=== PATIENT | female | born 1935 | race Caucasian/White ===

== ENCOUNTER 2018-04-23 07:54 | Inpatient (IN) | payer OTHER ==
--- NOTE | 2018-04-23 08:24 | EKG ---
Test Date: 2018-04-23 Test Time: 07:55:33 Electronic Gluing Machine Operator: JOMAR MEASUREMENT RESULTS: Intervals: Rate: 123 [place]: QRSD: 78 QT: 330 QTc: 472 [place]: P: AK: QRS: -48 T: 159 INTERPRETIVE STATEMENTS: Atrial fibrillation with rapid ventricular response Left axis deviation ST & T wave abnormality, consider lateral ischemia or digitalis effect Abnormal ECG Compared to ECG 05/13/2017 10:20:04 Left-axis deviation now present Sinus rhythm no longer present Short AK interval no longer present Left anterior fascicular block no longer present Myocardial infarct finding no longer present ST (T wave) deviation still present Possible ischemia still present Electronically Signed On 04-23-18 08:24:24 CDT by Arnold Dickson
[2018-04-23 08:31] LABS: Protime INR 0.99
[2018-04-23 08:32] LABS: Absolute Lymphocytes (CBC) 1.8 K/uL (0.7-4.9); Absolute Monocytes 0.7 K/uL (0.1-1.3); Absolute Neutrophil 3.7 K/uL (1.8-8.0); Basophils % 0.8 % (0-1.3); Eosinophils % 1.2 % (0-4.4); Hematocrit 41.2 % (36.0-45.0); Lymphocytes % 28.8 % (15.3-44.8); MCH 31.3 pg (27.0-35.0); MCV 90.6 fL (80-100); MPV 8.3 fL (7.6-11.3); Monocytes % 10.4 % (3.3-12.3); RBC Red Blood Cell Count 4.55 M/uL (3.86-4.86)
[2018-04-23 08:47] LABS: ALT/SGPT 19 U/L (12-78); AST/SGOT 18 U/L (15-37); Albumin 3.8 g/dL (3.4-5.0); Alkaline Phosphatase 77 U/L (45-117); BUN Blood Urea Nitrogen 11 mg/dL (7-18); Bicarbonate 26 mmol/L (21-32); Bilirubin Direct 0.2 mg/dL (0-0.2); Bilirubin Total 0.6 mg/dL (0.2-1.0); Glucose Level 113 mg/dL (74-106); Magnesium 2.4 mg/dL (1.8-2.4); NT PRO-BNP 2192 pg/mL (<450); Potassium 3.8 mmol/L (3.5-5.1); Protein, Total 7.5 g/dL (6.4-8.2); Sodium Level 139 mmol/L (136-145); Troponin (Emerg Dept Use Only) < 0.02 ng/mL (0.0-0.045)
[2018-04-23] MEDS ORDERED: ASPIRIN 81 MG CHEWABLE TABLET ONE (08:52)
[2018-04-23] MEDS ORDERED: ENOXAPARIN 80 MG/0.8 ML SQ ONE (08:53)
[2018-04-23] MEDS ORDERED: METOPROLOL TARTRATE 5 MG/5 ML INJ IV ONE (08:53)
--- NOTE | 2018-04-23 08:55 | RAD REPORT ---
EXAM DESCRIPTION: Rafal Single View04/23/2018 8:41 am CLINICAL HISTORY: Palpitations COMPARISON: 05/2017 FINDINGS: The lungs appear clear of acute infiltrate. The heart is normal size. IMPRESSION: No acute abnormalities displayed
--- NOTE | 2018-04-23 08:58 | ER ---
Nurse's Notes [facility] Name: Kimberly Simons Age: 83 yrs Sex: Female : 1935 Arrival Date: 04/23/2018 Time: 07:55 Bed 5 Private MD: Diagnosis: A-fib - RVR - New onset Presentation: 04/23 07:49 Presenting complaint: EMS states: woke up this morning around 0420 c/o heart racing, sv denies CP. Pt has been having intermittent chest tightness and SOB for the last couple of weeks. Pt recently had her BP meds changed last week. BP 116/79 HR-103 RR-19 97%. Transition of care: patient was not received from another setting of care. Onset of symptoms was April 23, 2018. Risk Assessment: Do you want to hurt yourself or someone else? Patient reports no desire to harm self or others. Initial Sepsis Screen: Does the patient meet any 2 criteria? No. Patient's initial sepsis screen is negative. Does the patient have a suspected source of infection? No. Patient's initial sepsis screen is negative. Care prior to arrival: Medication(s) given: Normal saline infusion, IV initiated. 18 GA, in the left antecubital area, Glucose check: 136. 07:49 Method Of Arrival: EMS: [facility] sv 07:49 Acuity: RUFUS 3 sv Triage Assessment: 07:49 General: Appears in no apparent distress. comfortable, slender, Behavior is calm, sv cooperative, appropriate for age. Pain: Denies pain. EENT: No signs and/or symptoms were reported regarding the EENT system. Neuro: Level of Consciousness is awake, alert, obeys commands, Oriented to person, place, time, situation, Moves all extremities. Full function Gait is steady, Speech is normal. Cardiovascular: Heart tones S1 S2 present Patient's skin is warm and dry. Pulses are palpable in right radial artery and left radial artery Rhythm is atrial fibrillation Chest pain is denied. Respiratory: Airway is patent Respiratory effort is even, unlabored, Respiratory pattern is regular, symmetrical, Denies shortness of breath labored breathing. GI: No signs and/or symptoms were reported involving the gastrointestinal system. : No signs and/or symptoms were reported regarding the genitourinary system. Derm: Skin is normal. Historical: - Allergies: 08:02 MARLENA INHIBITORS; sv 08:02 Benadryl; sv 08:02 bio freeze; sv 08:02 Iodine; sv 08:02 PENICILLINS; sv 08:02 Prednisone; sv 08:02 Streptomycin; sv - Home Meds: 08:02 carvedilol 12.5 mg oral tab [Active]; Protonix Oral [Active]; losartan oral oral sv [Active]; Synthroid 100 mcg Oral tab 1 tab once daily [Active]; 12:03 amlodipine oral [Active]; sv - PMHx: 08:02 Hypertension; GERD; sv - Immunization history:: Adult Immunizations up to date. - Ebola Screening: : No symptoms or risks identified at this time. - Social history:: Smoking status: Patient/guardian denies using tobacco. Screenin:00 Abuse screen: Denies threats or abuse. Denies injuries from another. Nutritional sv screening: No deficits noted. Tuberculosis screening: No symptoms or risk factors identified. Fall Risk None identified. Assessment: 08:28 Reassessment: Pt assisted up to the BSC with standby assist. sv 08:30 Reassessment: Patient appears in no apparent distress at this time. No changes from sv previously documented assessment. See triage assessment. 09:06 Reassessment: Patient appears in no apparent distress at this time. No changes from sg previously documented assessment. Patient states feeling better. 10:10 Reassessment: Dr Dickson at bedside. sv 10:28 Reassessment: Patient appears in no apparent distress at this time. No changes from sv previously documented assessment. Patient and/or family updated on plan of care and expected duration. Pain level reassessed. Patient is alert, oriented x 3, equal unlabored respirations, skin warm/dry/pink. Echo at bedside. 12:00 Reassessment: Patient appears in no apparent distress at this time. No changes from sv previously documented assessment. Patient and/or family updated on plan of care and expected duration. Pain level reassessed. Patient is alert, oriented x 3, equal unlabored respirations, skin warm/dry/pink. Vital Signs: 08:00 BP 123 / 94; Pulse 118 MON; Resp 19; Pulse Ox 100% on R/A; Pain 0/10; sv 08:59 Weight 62 kg (R); sg 09:01 BP 128 / 74; Pulse 109; Resp 17; Pulse Ox 100% on R/A; Pain 0/10; sg 09:06 BP 124 / 68; Pulse 67 MON; Resp 17; Pulse Ox 100% on R/A; sg 09:40 BP 141 / 76; Pulse 70 MON; Resp 20; Pulse Ox 99% ; sv 10:18 BP 117 / 68; Pulse 71 MON; Resp 20; Pulse Ox 100% on R/A; sv 11:30 BP 127 / 74; Pulse 75 MON; Resp 18; Temp 98.7; Pulse Ox 100% on R/A; sv 08:00 A fib sv 09:40 Sinus Rhythm sv 10:18 Sinus Rhythm sv 11:30 Sinus Rhythm sv 09:06 notified of rhythm change, EKG at bedside sg ED Course: 07:49 Maintain EMS IV. Dressing intact. Good blood return noted. Site clean \T\ dry. Gauge \T\ sv site: 18G L AC. 07:50 monitor tech on. Pulse ox on. NIBP on. Door closed. Warm blanket given. Head of bed sv elevated. 07:55 Patient arrived in ED. hb 07:55 Initial lab(s) drawn, by ED staff, sent to lab. sv 07:56 Maddie Rosales, RN is Primary Nurse. sv 07:56 Lisandro Boone MD is Attending Physician. kdr 07:59 Triage completed. sv 08:00 Patient has correct armband on for positive identification. Placed in gown. Bed in low sv position. Call light in reach. Adult w/ patient. 08:00 Arm band placed on. sv 08:16 EKG done, by electrocardiographic technician. reviewed by Lisandro Boone MD. at1 08:27 X-ray(s) taken. sv 08:31 Awaiting lab results, Awaiting radiology results. sv 08:34 X-ray completed. Portable x-ray completed in exam room. Patient tolerated procedure jb2 well. 08:37 XRAY Chest (1 view) In Process Unspecified. EDMS 08:57 Trudy Haynes MD is Hospitalizing Provider. kdr 09:15 EKG done, by electrocardiographic technician. reviewed by Lisandro Boone MD Repeat EKG. at1 09:41 Awaiting bed assignment. sv 11:00 Awaiting bed assignment. sv 12:03 No provider procedures requiring assistance completed. Patient admitted, IV remains in sv place. intact. 12:07 Diet: Patient given a heart healthy meal tray. Tolerated well no assistance requiredc. hb Administered Medications: 08:55 Drug: Lopressor 2.5 mg Route: IVP; Site: left antecubital; sg 09:15 Follow up: Response: No adverse reaction sv 08:59 Drug: Aspirin 81 mg Route: PO; sg 09:56 Follow up: Response: No adverse reaction sv 09:00 Drug: Lovenox 1 mg/kg Route: Sub-Q; Site: right lower abdomen; sg 09:56 Follow up: Response: No adverse reaction sv Output: 08:29 Urine: 300ml (Voided); Total: 300ml. sv Outcome: 08:58 Decision to Hospitalize by Provider. kdr 12:04 Admitted to Tele accompanied by tech, via stretcher, room 421, with chart, Report sv called to Gretchen BURNHAM 12:04 Condition: stable 12:04 Instructed on the need for admit. 12:30 Patient left the ED. sv Signatures: Dispatcher [employer] Maddie Duval, RN RN sv Clemente Oliveira RN RN Lisandro Boone MD MD [facility] Alexei Zuniga jb2 Carrie Hernandez, zoning administrator EKG Tat1 Patricia Pantoja RN RN hb
--- NOTE | 2018-04-23 08:59 | EDPHYS ---
Physician Documentation [facility] Name: Kimberly Simons Age: 83 yrs Sex: Female : 1935 Arrival Date: 04/23/2018 Time: 07:55 Bed 5 Private MD: ED Physician Lisandro Boone HPI: 04/23 16:18 This 83 yrs old Female presents to ER via EMS with complaints of Palpitations.kdr 16:18 The patient presents with a history of irregular heart beat, heart racing. Context: The kdr symptoms occur at rest. Duration: The patient or guardian reports a single episode, that is still ongoing, and unchanged. Modifying factors: The symptoms are aggravated by nothing. The symptoms are alleviated by. 16:46 Associated signs and symptoms: Pertinent positives: lightheadedness, Pertinent kdr negatives:. Severity of symptoms: At their worst the symptoms were mild moderate just prior to arrival, in the emergency department the symptoms are unchanged. The patient has not experienced similar symptoms in the past. The patient has not recently seen a physician. Historical: - Allergies: 08:02 MARLENA INHIBITORS; sv 08:02 Benadryl; sv 08:02 bio freeze; sv 08:02 Iodine; sv 08:02 PENICILLINS; sv 08:02 Prednisone; sv 08:02 Streptomycin; sv - Home Meds: 08:02 carvedilol 12.5 mg oral tab [Active]; Protonix Oral [Active]; losartan oral oral sv [Active]; Synthroid 100 mcg Oral tab 1 tab once daily [Active]; 12:03 amlodipine oral [Active]; sv - PMHx: 08:02 Hypertension; GERD; sv - Immunization history:: Adult Immunizations up to date. - Ebola Screening: : No symptoms or risks identified at this time. - Social history:: Smoking status: Patient/guardian denies using tobacco. ROS: 16:46 Constitutional: Negative for fever, chills, and weight loss, Eyes: Negative for injury, kdr pain, redness, and discharge, ENT: Negative for injury, pain, and discharge, Neck: Negative for injury, pain, and swelling, Respiratory: Negative for shortness of breath, cough, wheezing, and pleuritic chest pain, Abdomen/GI: Negative for abdominal pain, nausea, vomiting, diarrhea, and constipation, Back: Negative for injury and pain, : Negative for injury, bleeding, discharge, and swelling, MS/Extremity: Negative for injury and deformity, Skin: Negative for injury, rash, and discoloration, Neuro: Negative for headache, weakness, numbness, tingling, and seizure activity. Psych: Negative for depression, anxiety, suicide ideation, homicidal ideation, and hallucinations, Allergy/Immunology: Negative for hives, rash, and allergies, Endocrine: Negative for neck swelling, polydipsia, polyuria, polyphagia, and marked weight changes, Hematologic/Lymphatic: Negative for swollen nodes, abnormal bleeding, and unusual bruising. 16:46 Cardiovascular: Positive for palpitations, Negative for chest pain, edema, orthopnea. Exam: 16:46 Constitutional: This is a well developed, well nourished patient who is awake, alert, kdr and in no acute distress. Head/Face: Normocephalic, atraumatic. Eyes: Pupils equal round and reactive to light, extra-ocular motions intact. Lids and lashes normal. Conjunctiva and sclera are non-icteric and not injected. Cornea within normal limits. Periorbital areas with no swelling, redness, or edema. Neck: Trachea midline, no thyromegaly or masses palpated, and no cervical lymphadenopathy. Supple, full range of motion without nuchal rigidity, or vertebral point tenderness. No Meningismus. Chest/axilla: Normal chest wall appearance and motion. Nontender with no deformity. No lesions are appreciated. Respiratory: Lungs have equal breath sounds bilaterally, clear to auscultation and percussion. No rales, rhonchi or wheezes noted. No increased work of breathing, no retractions or nasal flaring. Abdomen/GI: Soft, non-tender, with normal bowel sounds. No distension or tympany. No guarding or rebound. No evidence of tenderness throughout. Back: No spinal tenderness. No costovertebral tenderness. Full range of motion. Skin: Warm, dry with normal turgor. Normal color with no rashes, no lesions, and no evidence of cellulitis. MS/ Extremity: Pulses equal, no cyanosis. Neurovascular intact. Full, normal range of motion. Neuro: Awake and alert, GCS 15, oriented to person, place, time, and situation. Cranial nerves II-XII grossly intact. Motor strength 5/5 in all extremities. Sensory grossly intact. Cerebellar exam normal. Normal gait. Psych: Awake, alert, with orientation to person, place and time. Behavior, mood, and affect are within normal limits. 16:46 Cardiovascular: Rate: tachycardic, Rhythm: irregularly irregular, Pulses: no pulse deficits are appreciated, Heart sounds: normal, Edema: is not appreciated. Vital Signs: 08:00 BP 123 / 94; Pulse 118 MON; Resp 19; Pulse Ox 100% on R/A; Pain 0/10; sv 08:59 Weight 62 kg (R); sg 09:01 BP 128 / 74; Pulse 109; Resp 17; Pulse Ox 100% on R/A; Pain 0/10; sg 09:06 BP 124 / 68; Pulse 67 MON; Resp 17; Pulse Ox 100% on R/A; sg 09:40 BP 141 / 76; Pulse 70 MON; Resp 20; Pulse Ox 99% ; sv 10:18 BP 117 / 68; Pulse 71 MON; Resp 20; Pulse Ox 100% on R/A; sv 11:30 BP 127 / 74; Pulse 75 MON; Resp 18; Temp 98.7; Pulse Ox 100% on R/A; sv 08:00 A fib sv 09:40 Sinus Rhythm sv 10:18 Sinus Rhythm sv 11:30 Sinus Rhythm sv 09:06 notified of rhythm change, EKG at bedside sg MDM: 08:58 Patient medically screened. kdr 16:46 Data reviewed: vital signs, nurses notes, lab test result(s), EKG, radiologic studies. kdr Counseling: I had a detailed discussion with the patient and/or guardian regarding: the historical points, exam findings, and any diagnostic results supporting the discharge/admit diagnosis, lab results, radiology results, the need for further work-up and treatment in the hospital. 04/23 08:07 Order name: Basic Metabolic Panel; Complete Time: :04/23 08:07 Order name: CBC with Diff; Complete Time: :04/23 08:07 Order name: LFT's; Complete Time: :04/23 08:07 Order name: Magnesium; Complete Time: :04/23 08:07 Order name: NT PRO-BNP; Complete Time: :04/23 08:07 Order name: PT-INR; Complete Time: :04/23 08:07 Order name: Troponin (emerg Dept Use Only); Complete Time: 08:51 sv 04/23 08:07 Order name: XRAY Chest (1 view) sv 04/23 08:07 Order name: EKG; Complete Time: 08:08 sv 04/23 08:59 Order name: Echo with Doppler EDMS 04/23 09:05 Order name: EKG; Complete Time: 09:06 sg 04/23 08:07 Order name: Cardiac monitoring; Complete Time: 09:57 sv 04/23 08:07 Order name: EKG - Nurse/Tech; Complete Time: 09:57 sv 04/23 08:07 Order name: IV Saline Lock; Complete Time: 09:57 sv 04/23 08:07 Order name: Labs collected and sent; Complete Time: 09:57 sv 04/23 08:07 Order name: O2 Per Protocol; Complete Time: 09:57 sv 04/23 08:07 Order name: O2 Sat Monitoring; Complete Time: 09:57 sv 04/23 11:34 Order name: Diet Heart Healthy; Complete Time: 11:34 bd Administered Medications: 08:55 Drug: Lopressor 2.5 mg Route: IVP; Site: left antecubital; sg 09:15 Follow up: Response: No adverse reaction sv 08:59 Drug: Aspirin 81 mg Route: PO; sg 09:56 Follow up: Response: No adverse reaction sv 09:00 Drug: Lovenox 1 mg/kg Route: Sub-Q; Site: right lower abdomen; sg 09:56 Follow up: Response: No adverse reaction sv Disposition: 04/23/18 08:58 Hospitalization ordered by Trudy Haynes for Observation. Preliminary diagnosis is A-fib - RVR - New onset. - Bed requested for Telemetry/MedSurg (observation). - Status is Observation. sv - Condition is Fair. - Problem is new. - Symptoms are unchanged. UTI on Admission? No Signatures: Dispatcher [employer] EDHI Jessy Montero Stephanie RN Clemente Albarran RN RN Lisandro Lopez MD MD kdr Corrections: (The following items were deleted from the chart) 11:46 08:58 Hospitalization Ordered by Trudy Haynes MD for Observation. Preliminary bd diagnosis is A-fib - RVR - New onset. Bed requested for Telemetry/MedSurg (observation). Status is Observation. Condition is Fair. Problem is new. Symptoms are unchanged. UTI on Admission? No. kdr 12:30 11:46 04/23/2018 08:58 Hospitalization Ordered by Trudy Haynes MD for Observation. sv Preliminary diagnosis is A-fib - RVR - New onset. Bed requested for Telemetry/MedSurg (observation). Status is Observation. Condition is Fair. Problem is new. Symptoms are unchanged. UTI on Admission? No. bd
[2018-04-23] MEDS ORDERED: ASPIRIN EC 81 MG TAB PO SCH (09:00)
--- NOTE | 2018-04-23 10:26 | EKG ---
Test Date: 2018-04-23 Test Time: 09:09:01 Mixer Whipped Topping: DEANN MEASUREMENT RESULTS: Intervals: Rate: 69 CT: 170 QRSD: 80 QT: 410 QTc: 439 [place]: P: 22 CT: 170 QRS: -51 T: 0 INTERPRETIVE STATEMENTS: Normal sinus rhythm Left axis deviation Anterior infarct, age undetermined Abnormal ECG Compared to ECG 04/23/2018 07:55:33 Myocardial infarct finding now present Atrial fibrillation no longer present ST (T wave) deviation no longer present Possible ischemia no longer present Electronically Signed On 04-23-18 10:25:54 CDT by Arnold Dickson
--- NOTE | 2018-04-23 12:40 | ECHO ---
HEIGHT: ft in WEIGHT: lb oz DATE OF STUDY: 04/23/[address]: Trudy Haynes MD 2-DIMENSIONAL: YES M.MODE: YES DOPPLER: YES COLOR FLOW: YES TDS: NO PORTABLE: NO DEFINITY: NO BUBBLE STUDY: NO DIAGNOSIS: ATRIAL FIBRILLATION, RAPID VENTRICULAR RESPONSE CARDIAC HISTORY: CATHERIZATION: NO SURGERY: NO PROSTHETIC VALVE: NO PACEMAKER: NO MEASUREMENTS (cm) DIASTOLIC (NORMALS) SYSTOLIC (NORMALS) IVSd 1.0 (0.6-1.2) LA Diam 3.6 (1.9-4.0) LVEF 76% LVIDd 4.9 (3.5-5.7) LVIDs 2.7 (2.0-3.5) %FS 45% LVPWd 1.1 (0.6-1.2) Ao Diam 3.3 (2.0-3.7) 2 DIMENSIONAL ASSESSMENT: RIGHT ATRIUM: NORMAL LEFT ATRIUM: NORMAL RIGHT VENTRICLE: NORMAL LEFT VENTRICLE: NORMAL TRICUSPID VALVE: NORMAL MITRAL VALVE: NORMAL PULMONIC VALVE: NORMAL AORTIC VALVE: NORMAL PERICARDIAL EFFUSION: NONE AORTIC ROOT: NORMAL LEFT VENTRICULAR WALL MOTION: NORMAL DOPPLER/COLOR FLOW: MILD AORTIC, MITRAL AND TRICUSPID REGURGITATION. NORMAL RIGHT VENTRICULAR SYSTOIC PRESSURE. COMMENTS: NORMAL 2D ECHOCARDIOGRAM. MILD AORTIC, MITRAL AND TRICUSPID REGURGITATION. NORMAL SINUS RHYTHM. TECHNOLOGIST: Jose GUERRA
[2018-04-23] MEDS ORDERED: ONDANSETRON 4 MG/2 ML VIAL IV PRN (12:54)
[2018-04-23] MEDS ORDERED: ENOXAPARIN 40 MG/0.4 ML SQ SCH (12:54)
[2018-04-23] MEDS ORDERED: ACETAMINOPHEN 500 MG TAB PO PRN (12:54)
--- NOTE | 2018-04-23 13:12 | P.HP ---
Certification for Inpatient Patient admitted to: Observation With expected LOS: <2 Midnights Patient will require the following post-hospital care: None Practitioner: I am a practitioner with admitting privileges, knowledge of patient current condition, hospital course, and medical plan of care. Services: Services provided to patient in accordance with Admission requirements found in Title 42 Section 412.3 of the Code of Federal Regulations Patient History Date of Service: 04/23/18 Primary Care Provider: Dr Benavides - cardio Reason for admission: Afib History of Present Illness: This is a 83-year-old female with significant past medical history of hypertension who presented to the ED complaining of having irregular heart rate. Patient stated that she noticed some palpitations since yesterday and decided to come to the ER for further workup. Patient stated that about a month ago she was started on new blood pressure medication as her blood pressure has been elevated recently. She has been having elevated blood pressure even after the medication was started and called her cardiology office about 1 week ago. Patient at that time was advised to double up on her blood pressure medication that she has been taking. Patient takes beta-homero 12.5 which was increased to 25 mg. Patient stated that after the increased she started noticing having irregular heart rate and palpitations and thus decided to come to the ER for further workup. No other associated symptoms at this time. Denies having any shortness of breath chest pain nausea vomiting headaches abdominal pain or any other symptoms. Patient overall is not healthy state other than having the palpitations that she noticed. Denies any tobacco or alcohol use at this time. Allergies MARLENA Inhibitors Allergy (Verified 05/10/17 21:34) Anaphylaxis Penicillins Allergy (Verified 05/10/17 21:34) Hives camphor [From Biofreeze] Adverse Reaction (Verified 05/10/17 21:34) Hives diphenhydramine [From Benadryl] Adverse Reaction (Verified 05/10/17 21:34) Nausea/Vomiting iodine Adverse Reaction (Verified 05/10/17 21:34) Hives menthol [From Biofreeze] Adverse Reaction (Verified 05/10/17 21:34) Hives prednisone Adverse Reaction (Verified 05/10/17 21:34) Hives streptomycin Adverse Reaction (Verified 05/10/17 21:34) Rash Home Medications: Amlodipine/Valsartan [Amlodipine-Valsartan 10-320 mg] 1 tab PO DAILY 05/10/17 Multivitamin [Daily Multivitamin] 1 tab PO DAILY 05/10/17 Atorvastatin Calcium [Lipitor*] 20 mg PO BEDTIME 05/13/17 Carvedilol [Coreg] 12.5 mg PO BID #60 tab 05/14/17 Levothyroxine Sodium [Levoxyl] 100 mcg PO DAILY #30 tablet 05/14/17 Pantoprazole [Protonix Tab*] 40 mg PO DAILYAC #30 tab 05/14/17 - Past Medical/Surgical History Diabetic: No -: Hypothyroidism -: HTN -: Venous insufficiency -: Hysterectomy -: Vein stripping Psychosocial/ Personal History: The patient is a . She has 4 children. She does not work. - Family History Mother -: Heart disease, Cancer Father -: Stroke Brother -: Heart disease Sister -: Heart disease - Social History Alcohol use: No CD- Drugs: No Caffeine use: Yes Review of Systems 10-point ROS is otherwise unremarkable Physical Examination - Vital Signs Temperature: 98.7 F Blood Pressure: 127/74 Pulse: 75 Respirations: 18 - Physical Exam General: Alert, In no apparent distress HEENT: Atraumatic, PERRLA, Mucous membr. moist/pink, EOMI, Sclerae nonicteric Neck: Supple, 2+ carotid pulse no bruit, No LAD, Without JVD or thyroid abnormality Respiratory: Clear to auscultation bilaterally, Normal air movement Cardiovascular: Normal S1 S2, Irregular heart rate/rhythm Gastrointestinal: Normal bowel sounds, No tenderness Musculoskeletal: No tenderness Integumentary: No rashes Neurological: Normal gait, Normal speech, Normal strength at 5/5 x4 extr, Normal tone, Normal affect Lymphatics: No axilla or inguinal lymphadenopathy - Studies Laboratory Data (last 24 hrs) 04/23/18 08:00: PT 11.7, INR 0.99 04/23/18 08:00: WBC 6.3, Hgb 14.2, Hct 41.2, Plt Count 291 04/23/18 08:00: Sodium 139, Potassium 3.8, BUN 11, Creatinine 0.90, Glucose 113 H, Magnesium 2.4, Total Bilirubin 0.6, AST 18, ALT 19, Alkaline Phosphatase 77 Assessment and Plan - Problems (Diagnosis) (1) Afib Current Visit: Yes Status: Acute Plan: New onset atrial fibrillation with RVR -patient on beta-homero at this time. However will stop that and consider starting patient on Betapace -will get cardiology consulted. -echocardiogram ordered as well -CHADsVasc>2 at this time -Considering Xarelto for anticoagulation Qualifiers: Atrial fibrillation type: persistent Qualified Code(s): I48.1 - Persistent atrial fibrillation (2) Hypertension Onset Date: 05/14/17 Current Visit: No Status: Chronic Plan: Blood pressure elevated in the ER -will restart home medication except beta-homero. -will monitor closely here in the hospital Qualifiers: Hypertension type: essential hypertension (3) Hypothyroidism Onset Date: 05/14/17 Current Visit: No Status: Chronic Plan: Will get TSH -restart hypothyroid medication here in the hospital Qualifiers: Hypothyroidism type: acquired Qualified Code(s): E03.9 - Hypothyroidism, unspecified - Plan The patient will be admitted to medical surgical floor for further treatment of her atrial fibrillation with RVR. Cardiology consultation has been ordered. Echocardiogram has been ordered as well. Discharge Plan: Home Plan to discharge in: 48 Hours - Advance Directives Does patient have a Living Will: Yes Does patient have a Durable POA for Healthcare: Yes - Code Status/Comfort Care Code Status Assessed: Yes Critical Care: No
[2018-04-23 13:19] VITALS: BMI 21.4
--- NOTE | 2018-04-23 14:24 | CON ---
CARDIOLOGY CONSULT Reason For Consultation: AFib. History Of Present Illness: Ms. Simons is known to have hypertension for many years. She does not sm eric or have any vascular disease. Does not have diabetes or dyslipidemia. About a year ago, she had an extensive noninvasive workup and everything was normal. She has been feeling her heart flip-flop on and off for a couple days, came in and had AFib with heart rate about 130 to 140. When she settl ed down, the heart rate fell, then she reverted to sinus rhythm without the administration of any med ications and she is in the sinus rhythm at the time of the exam. She thinks she may have had flip-fl ops and spells that she ignored even since she was a teenager, but more recently spells like this hav e just been fairly recent. Physical Examination: General: She appears to be her stated age. Alert, oriented, pleasant, not in distress. Lungs: Clear. Heart: Regular rate and rhythm. No significant murmur. No carotid bruit. Extremities: No edema, cyanosis, or clubbing. Distal pulses palpable. Impression: The patient has paroxysmal atrial fibrillation. I think, we should initiate therapy wit h Xarelto and Betapace and see if we can reduce her risk of stroke and keep her in normal rhythm most of the time. She has been on carvedilol, so we will stop that and she could continue with the losartan. She reports drug intolerance to x-ray contrast material, penicillin and MARLENA inhibitors. SUZAN/FAITH Voice ID: [id number] Report ID: [id number]
[2018-04-23] MEDS: RIVAROXABAN 20 MG TABLET PO SCH (16:49)
[2018-04-23] MEDS ORDERED: METOPROLOL TAR 25 MG TAB PO SCH (18:00)
[2018-04-23] MEDS ORDERED: POTASSIUM 25 MEQ EFFERV TAB PO ONE (18:00)
[2018-04-23] MEDS: SOTALOL HCL 80 MG TAB PO SCH (18:37)
[2018-04-24 05:05] LABS: Absolute Lymphocytes (CBC) 2.6 K/uL (0.7-4.9); Absolute Monocytes 0.9 K/uL (0.1-1.3); Absolute Neutrophil 2.9 K/uL (1.8-8.0); Basophils % 0.7 % (0-1.3); Eosinophils % 2.3 % (0-4.4); Lymphocytes % 39.7 % (15.3-44.8); MCH 31.2 pg (27.0-35.0); MCV 91.8 fL (80-100); MPV 8.3 fL (7.6-11.3); Monocytes % 13.3 % (3.3-12.3); RBC Red Blood Cell Count 4.14 M/uL (3.86-4.86)
[2018-04-24 05:16] LABS: Albumin 3.3 g/dL (3.4-5.0); Bilirubin Total 0.5 mg/dL (0.2-1.0); Phosphorus 3.9 mg/dL (2.5-4.9); Potassium 4.2 mmol/L (3.5-5.1); Protein, Total 6.4 g/dL (6.4-8.2)
[2018-04-24 05:28] LABS: Urine Appearance CLEAR; Urine Bilirubin NEGATIVE (NEG); Urine Blood NEGATIVE (NEG); Urine Color YELLOW; Urine Glucose NEGATIVE (NEG); Urine Protein NEGATIVE (NEG); Urine Specific Gravity 1.015 (1.005-1.030); Urine Urobilinogen 0.2 mg/dL (0.2-1.0); Urine pH 6.5 (5.0-7.0)
[2018-04-24 05:34] LABS: Urine Microscopic Reflex NO UMIC
[2018-04-24] MEDS: SOTALOL HCL 80 MG TAB PO SCH ×2 (06:24→17:18)
--- NOTE | 2018-04-24 13:21 | P.PN ---
Subjective Date of Service: 04/24/18 Primary Care Provider: Dr Benavides - cardio Chief Complaint: Afib Patient seen and examined at bedside with RN. Melvin. Case discussed with cardiology. Plans to offer overnight. Has been doing well. In Sinus rhythm. Review of Systems 10-point ROS is otherwise unremarkable Physical Examination - Vital Signs Temperature: 99.3 F Blood Pressure: 141/64 Pulse: 68 Respirations: 18 Pulse Ox (%): 98 - Physical Exam General: Alert, In no apparent distress HEENT: Atraumatic, PERRLA, EOMI Neck: Supple, JVD not distended Respiratory: Clear to auscultation bilaterally, Normal air movement Cardiovascular: Regular rate/rhythm, Normal S1 S2 Gastrointestinal: Normal bowel sounds, No tenderness Musculoskeletal: No tenderness Integumentary: No rashes Neurological: Normal speech, Normal tone, Normal affect Lymphatics: No axilla or inguinal lymphadenopathy - Studies Laboratory Data (last 24 hrs) 04/24/18 04:07: Sodium 139, Potassium 4.2, BUN 16, Creatinine 1.00, Glucose 91, Phosphorus 3.9, Total Bilirubin 0.5, AST 17, ALT 16, Alkaline Phosphatase 63 04/24/18 04:07: WBC 6.5, Hgb 12.9, Hct 38.0, Plt Count 288 Medications List Reviewed: Yes Assessment And Plan - Current Problems (Diagnosis) (1) Afib Onset Date: 04/24/18 Current Visit: Yes Status: Acute Plan: New onset atrial fibrillation with RVR -On betapace and xarelto now. Stop Coreg -echocardiogram WNL -CHADsVasc>2 at this time -Cardiology consulted. Appreciate unm hospital Qualifiers: Atrial fibrillation type: persistent Qualified Code(s): I48.1 - Persistent atrial fibrillation (2) Hypertension Onset Date: 05/14/17 Current Visit: No Status: Chronic Plan: Blood pressure elevated in the ER -restart Losartan -will monitor closely here in the hospital Qualifiers: Hypertension type: essential hypertension (3) Hypothyroidism Onset Date: 05/14/17 Current Visit: No Status: Chronic Plan: Will get TSH -restart hypothyroid medication here in the hospital Qualifiers: Hypothyroidism type: acquired Qualified Code(s): E03.9 - Hypothyroidism, unspecified - Plan Pending clinical improvement. Will monitor patient 24-48 hr after receiving 4 doses Betapace Discharge Plan: Home Plan to discharge in: 48 Hours - Code Status/Comfort Care Code Status Assessed: Yes Critical Care: No
[2018-04-24] MEDS: PANTOPRAZOLE 40MG TABLET PO SCH (15:34)
[2018-04-24] MEDS: AMLODIPINE 10 MG TAB PO SCH (15:34)
[2018-04-24] MEDS: MULTIVIT W/ MINERAL TAB PO SCH (15:34)
[2018-04-24] MEDS: LOSARTAN POTASSIUM 50 MG TABLET PO SCH (15:34)
[2018-04-24] MEDS: FOLBIC 1 TAB PO SCH (16:00)
[2018-04-24] MEDS: RIVAROXABAN 20 MG TABLET PO SCH (17:18)
[2018-04-25] MEDS: SOTALOL HCL 80 MG TAB PO SCH ×2 (06:27→17:18)
[2018-04-25] MEDS: LEVOTHYROXINE SOD 0.1 MG TAB PO SCH (06:27)
[2018-04-25 06:40] LABS: Absolute Lymphocytes (CBC) 1.6 K/uL (0.7-4.9); Absolute Monocytes 0.7 K/uL (0.1-1.3); Absolute Neutrophil 3.3 K/uL (1.8-8.0); Basophils % 0.7 % (0-1.3); Eosinophils % 1.8 % (0-4.4); Hematocrit 39.5 % (36.0-45.0); Lymphocytes % 27.8 % (15.3-44.8); MCH 30.9 pg (27.0-35.0); MPV 7.8 fL (7.6-11.3); Monocytes % 12.1 % (3.3-12.3); RBC Red Blood Cell Count 4.29 M/uL (3.86-4.86)
[2018-04-25 06:58] LABS: Albumin 3.4 g/dL (3.4-5.0); Bilirubin Total 0.6 mg/dL (0.2-1.0); Potassium 4.2 mmol/L (3.5-5.1); Protein, Total 6.7 g/dL (6.4-8.2)
[2018-04-25] MEDS: MULTIVIT W/ MINERAL TAB PO SCH (08:36)
[2018-04-25] MEDS: PANTOPRAZOLE 40MG TABLET PO SCH (08:36)
[2018-04-25] MEDS: AMLODIPINE 10 MG TAB PO SCH (08:37)
[2018-04-25] MEDS: LOSARTAN POTASSIUM 50 MG TABLET PO SCH (08:37)
[2018-04-25] MEDS: FOLBIC 1 TAB PO SCH (08:40)
[2018-04-25] MEDS ORDERED: HOME MED 1 EA UNK (Losartan Potassium [Losartan Potassium] 100 MG) PO SCH (09:00)
[2018-04-25] MEDS ORDERED: FOLIC ACID PO SCH (09:00)
[2018-04-25] MEDS ORDERED: B6 PO SCH (09:00)
[2018-04-25] MEDS ORDERED: VIT E ACETATE PO SCH (09:00)
[2018-04-25] MEDS ORDERED: UBIDECARENONE PO SCH (09:00)
[2018-04-25] MEDS ORDERED: VIT B12 PO SCH (09:00)
[2018-04-25] MEDS ORDERED: LMEFOLATE CA PO SCH (09:00)
[2018-04-25] MEDS ORDERED: B12 PO SCH (09:00)
[2018-04-25] MEDS ORDERED: B2 PO SCH ×2 (09:00)
[2018-04-25] MEDS ORDERED: VIT B6 PO SCH (09:00)
[2018-04-25] MEDS ORDERED: VIT D3 PO SCH (09:00)
--- NOTE | 2018-04-25 14:06 | P.PN ---
Subjective Date of Service: 04/25/18 Primary Care Provider: Dr Benavides - cardio Chief Complaint: Afib Patient seen and examined at bedside with RN. Melvin. Case discussed with cardiology. No complaints to offer overnight. Has been doing well. Had by 2nd run of V-tach this morning along with lot of PACs Review of Systems 10-point ROS is otherwise unremarkable Physical Examination - Vital Signs Temperature: 99.3 F Blood Pressure: 140/67 Pulse: 67 Respirations: 18 Pulse Ox (%): 98 - Physical Exam General: Alert, In no apparent distress HEENT: Atraumatic, PERRLA, EOMI Neck: Supple, JVD not distended Respiratory: Clear to auscultation bilaterally, Normal air movement Cardiovascular: Regular rate/rhythm, Normal S1 S2 Gastrointestinal: Normal bowel sounds, No tenderness Musculoskeletal: No tenderness Integumentary: No rashes Neurological: Normal speech, Normal tone, Normal affect Lymphatics: No axilla or inguinal lymphadenopathy - Studies Medications List Reviewed: Yes Assessment And Plan - Current Problems (Diagnosis) (1) Afib Onset Date: 04/24/18 Current Visit: Yes Status: Acute Plan: New onset atrial fibrillation with RVR -On betapace and xarelto now. Stop Coreg -echocardiogram WNL -CHADsVasc>2 at this time -Cardiology consulted. Appreciate reccs -this morning patient had arrhythmia 5 second run of V-tach. -Will monitor for 24 hr and discharge appropriately Qualifiers: Atrial fibrillation type: persistent Qualified Code(s): I48.1 - Persistent atrial fibrillation (2) Hypertension Onset Date: 05/14/17 Current Visit: No Status: Chronic Plan: Blood pressure elevated in the ER -restart Losartan -will monitor closely here in the hospital Qualifiers: Hypertension type: essential hypertension (3) Hypothyroidism Onset Date: 05/14/17 Current Visit: No Status: Chronic Plan: Will get TSH -restart hypothyroid medication here in the hospital Qualifiers: Hypothyroidism type: acquired Qualified Code(s): E03.9 - Hypothyroidism, unspecified - Plan Pending clinical improvement. Will monitor patient 24-48 hr after receiving 4 doses Betapace Discharge Plan: Home Plan to discharge in: 24 Hours - Code Status/Comfort Care Code Status Assessed: Yes Critical Care: No
[2018-04-25] MEDS: RIVAROXABAN 20 MG TABLET PO SCH (17:18)
[2018-04-26] MEDS: SOTALOL HCL 80 MG TAB PO SCH (05:20)
[2018-04-26] MEDS: LEVOTHYROXINE SOD 0.1 MG TAB PO SCH (05:21)
[2018-04-26 07:03] LABS: Absolute Monocytes 0.8 K/uL (0.1-1.3); Absolute Neutrophil 3.4 K/uL (1.8-8.0); Basophils % 0.8 % (0-1.3); Eosinophils % 2.4 % (0-4.4); Hematocrit 38.1 % (36.0-45.0); Lymphocytes % 30.9 % (15.3-44.8); MCH 31.1 pg (27.0-35.0); MCV 91.6 fL (80-100); MPV 8.3 fL (7.6-11.3); Monocytes % 13.1 % (3.3-12.3); RBC Red Blood Cell Count 4.16 M/uL (3.86-4.86)
[2018-04-26 07:14] LABS: Albumin 3.2 g/dL (3.4-5.0); Bilirubin Total 0.6 mg/dL (0.2-1.0); Potassium 4.2 mmol/L (3.5-5.1); Protein, Total 6.6 g/dL (6.4-8.2)
[2018-04-26] MEDS: AMLODIPINE 10 MG TAB PO SCH (08:06)
[2018-04-26] MEDS: PANTOPRAZOLE 40MG TABLET PO SCH (08:07)
[2018-04-26] MEDS: LOSARTAN POTASSIUM 50 MG TABLET PO SCH (08:07)
[2018-04-26] MEDS: MULTIVIT W/ MINERAL TAB PO SCH (08:07)
[2018-04-26] MEDS: FOLBIC 1 TAB PO SCH (08:07)
[2018-04-26 12:17] VITALS: O2SAT 100
--- NOTE | 2018-04-26 13:06 | P.DS ---
Admission Date: 04/24/18 Discharge Date: 04/26/18 Primary Care Provider: Dr Benavides - cardio Disposition: ROUTINE DISCHARGE Discharge Condition: GOOD Reason for Admission: Afib - Problems (1) Afib Onset Date: 04/24/18 Current Visit: Yes Status: Acute Qualifiers: Atrial fibrillation type: persistent Qualified Code(s): I48.1 - Persistent atrial fibrillation (2) Hypertension Onset Date: 05/14/17 Current Visit: No Status: Chronic Qualifiers: Hypertension type: essential hypertension (3) Hypothyroidism Onset Date: 05/14/17 Current Visit: No Status: Chronic Qualifiers: Hypothyroidism type: acquired Qualified Code(s): E03.9 - Hypothyroidism, unspecified Brief History of Present Illness: This is a 83-year-old female with significant past medical history of hypertension who presented to the ED complaining of having irregular heart rate. Patient stated that she noticed some palpitations since yesterday and decided to come to the ER for further workup. Patient stated that about a month ago she was started on new blood pressure medication as her blood pressure has been elevated recently. She has been having elevated blood pressure even after the medication was started and called her cardiology office about 1 week ago. Patient at that time was advised to double up on her blood pressure medication that she has been taking. Patient takes beta-homero 12.5 which was increased to 25 mg. Patient stated that after the increased she started noticing having irregular heart rate and palpitations and thus decided to come to the ER for further workup. No other associated symptoms at this time. Denies having any shortness of breath chest pain nausea vomiting headaches abdominal pain or any other symptoms. Patient overall is not healthy state other than having the palpitations that she noticed. Denies any tobacco or alcohol use at this time. Hospital Course: Overall during the hospital stay patient remained stable Patient was initially admitted to the hospital for new onset AFib with RVR. Cardiology was consulted here in the hospital. Echocardiogram was done here in the hospital as well. Cardiology recommended the patient be started on Betapace and Xarelto here in the hospital. Patient was started on Betapace and Xarelto and was monitored for 48 hr here in the hospital. Patient did well overall and thus was discharged home under stable condition was given a prescription for Betapace and Xarelto. No other complaints to offer at this time. Patient did well overall while here in the hospital Vital Signs/Physical Exam: Temp Pulse Resp BP Pulse Ox 99.2 F 64 18 163/70 H 98 04/26/18 08:00 04/26/18 08:06 04/26/18 08:00 04/26/18 08:06 04/26/18 08:00 General: Alert, In no apparent distress HEENT: Atraumatic, PERRLA, EOMI Neck: Supple, JVD not distended Respiratory: Clear to auscultation bilaterally, Normal air movement Cardiovascular: Regular rate/rhythm, Normal S1 S2 Gastrointestinal: Normal bowel sounds, No tenderness Musculoskeletal: No tenderness Integumentary: No rashes Neurological: Normal speech, Normal tone, Normal affect Lymphatics: No axilla or inguinal lymphadenopathy Laboratory Data at Discharge: WBC 6.5 K/uL (4.3-10.9) D 04/26/18 05:59 Hgb 13.0 g/dL (12.0-15.0) 04/26/18 05:59 Hct 38.1 % (36.0-45.0) 04/26/18 05:59 Plt Count 261 K/uL (152-406) 04/26/18 05:59 PT 11.7 SECONDS (9.5-12.5) 04/23/18 08:00 INR 0.99 04/23/18 08:00 Sodium 138 mmol/L (136-145) 04/26/18 05:59 Potassium 4.2 mmol/L (3.5-5.1) 04/26/18 05:59 BUN 14 mg/dL (7-18) 04/26/18 05:59 Creatinine 0.90 mg/dL (0.55-1.3) 04/26/18 05:59 Glucose 96 mg/dL (74-106) 04/26/18 05:59 Phosphorus 3.9 mg/dL (2.5-4.9) 04/24/18 04:07 Magnesium 2.4 mg/dL (1.8-2.4) 04/23/18 08:00 Total Bilirubin 0.6 mg/dL (0.2-1.0) 04/26/18 05:59 AST 16 U/L (15-37) 04/26/18 05:59 ALT 17 U/L (12-78) 04/26/18 05:59 Alkaline Phosphatase 65 U/L (45-117) 04/26/18 05:59 Home Medications: RX: Amlodipine Besylate 10 mg PO DAILY 04/23/18 RX: Levothyroxine [Synthroid*] 100 mcg PO DAILY 04/23/18 RX: Losartan Potassium 100 mg PO DAILY 04/23/18 RX: Multivit-Min/FA/Lycopen/Lutein [Complete Multivitamin Tab] 1 tab PO DAILY RX: Pantoprazole [Protonix Tab*] 40 mg PO DAILY 04/23/18 RX: Ubidecarenone/Vit E Acetate [Co Q-10 100 mg Softgel] 1 each PO DAILY RX: Vit B12/Lmefolate Ca/Vit B6/B2 [l-Methyl-Mc Tablet] 1 each PO DAILY RX: Vit D3/Folic Acid/B2/B6/B12 [Folgard Tablet] 1 tab PO DAILY 04/23/18 RX: Sotalol HCl [Betapace*] 40 mg PO BID 6AM 6PM #60 tab 04/25/18 Rivaroxaban [Xarelto] 20 mg PO DAILY #30 tablet 04/25/18 New Medications: Rivaroxaban [Xarelto] 20 mg PO DAILY #30 tablet RX: Sotalol HCl [Betapace*] 40 mg PO BID 6AM 6PM #60 tab Patient Discharge Instructions: Please f.u with Cardiology in 1 to 2 days post discharge. New medication. Betapace 40mg BID. Xarelto 20mg Daily. Stop Taking. Coreg Diet: Regular Activity: Ad dario Followup: Sherwin Benavides MD [ACTIVE - CAN ADMIT] - 1-2 Weeks
[2018-04-26 13:42] VITALS: BP 144/72; TEMP 99.1
--- NOTE | 2018-04-27 11:40 | PN ---
Date of Progress Note: 04/24/2018 Mrs. Simons is 83, was admitted on 04/23/2018, was seen by Dr. Dickson for atrial fibrillation. She logan s also history of hypothyroidism, hypertension, and gastroesophageal reflux disease. Echocardiogram, which was done on 04/23/2018, was normal. She is in sinus rhythm today, on Xarelto and Betapace. S he can go home whenever it is okay with Dr. Haynes. We will see her in the office in 2 weeks. ZEYNEP/FAITH Voice ID: [id number] Report ID: [id number]
== END 2018-04-26 13:25 | disposition home health service (06) | DRG 310 ==
LOC: ER 07:54 → 4TH 12:14 → OBSVTOIN 04-24 11:44
PROVIDERS: ADMIT Family Medicine; ATTEND Family Medicine
DX: I48.1 Persistent atrial fibrillation (principal); E03.9 Hypothyroidism, unspecified; I10 Essential (primary) hypertension; Z88.0 Allergy status to penicillin; Z88.8 Allergy status to other drugs, medicaments and biological substances; K21.9 Gastro-esophageal reflux disease without esophagitis
CPT/HCPCS: 36415; 71045; 80048; 80053; 80076; 81003; 83735; 83880; 84100; 84443; 84484; 85025; 85610; 93005; 93306; 96372; 96374; 99285; G0378; J1650

== ENCOUNTER 2018-04-28 12:04 | Emergency (ER) | payer OTHER ==
[2018-04-28 12:53] LABS: Protime INR 1.95
[2018-04-28 12:55] LABS: Absolute Lymphocytes (CBC) 1.8 K/uL (0.7-4.9); Absolute Monocytes 0.6 K/uL (0.1-1.3); Basophils % 0.7 % (0-1.3); Eosinophils % 1.2 % (0-4.4); Hematocrit 39.1 % (36.0-45.0); Lymphocytes % 27.4 % (15.3-44.8); MCH 31.1 pg (27.0-35.0); MCV 90.5 fL (80-100); MPV 8.1 fL (7.6-11.3); Monocytes % 9.8 % (3.3-12.3); RBC Red Blood Cell Count 4.32 M/uL (3.86-4.86)
[2018-04-28 13:08] LABS: ALT/SGPT 18 U/L (12-78); AST/SGOT 15 U/L (15-37); Albumin 3.8 g/dL (3.4-5.0); Alkaline Phosphatase 64 U/L (45-117); BUN Blood Urea Nitrogen 15 mg/dL (7-18); Bicarbonate 26 mmol/L (21-32); Bilirubin Direct 0.2 mg/dL (0-0.2); Bilirubin Total 0.6 mg/dL (0.2-1.0); Glucose Level 97 mg/dL (74-106); Magnesium 2.6 mg/dL (1.8-2.4); NT PRO-BNP 312 pg/mL (<450); Potassium 3.7 mmol/L (3.5-5.1); Protein, Total 7.5 g/dL (6.4-8.2); Sodium Level 136 mmol/L (136-145); Troponin (Emerg Dept Use Only) < 0.02 ng/mL (0.0-0.045)
--- NOTE | 2018-04-28 14:07 | RAD REPORT ---
EXAM DESCRIPTION: RAD - Chest Single View - 04/28/2018 1:30 pm CLINICAL HISTORY: Intermittent chest pain and pressure COMPARISON: April 23 TECHNIQUE: AP portable chest image was obtained 1315 hours . FINDINGS: No focal mass or consolidation. Interstitial markings are prominent and increased over the prior study. Heart and vasculature are normal. No measurable pleural effusion and no pneumothorax. N o acute bony abnormality seen. No acute aortic findings suspected. IMPRESSION: Increasing prominence of the interstitial markings can reflect infiltrate or edema. No focal mass or consolidation.
--- NOTE | 2018-04-28 14:20 | EDPHYS ---
Physician Documentation [facility] Name: Kimberly Simons Age: 83 yrs Sex: Female : 1935 Arrival Date: 04/28/2018 Time: 12:05 Bed 27 Private MD: ED Physician Laz Garrison HPI: 04/28 20:56 This 83 yrs old Female presents to ER via EMS with complaints of Chest gs Pressure. 20:56 The patient or guardian reports chest pain that is located primarily in the anterior gs chest wall. Onset: acutely, this morning. The pain does not radiate. Associated signs and symptoms: Pertinent negatives: shortness of breath. The chest pain is described as a heaviness. Duration: The patient or guardian reports a single episode, that is now resolved. Duration: The patient or guardian reports a single episode, that lasted 3 minute(s). Modifying factors: The symptoms are alleviated by nothing. the symptoms are aggravated by nothing. Severity of pain: At its worst the pain was moderate in the emergency department the pain has resolved. The patient has experienced similar episodes in the past, a few times. Historical: - Allergies: 12:54 MARLENA INHIBITORS; ss 12:54 Benadryl; ss 12:54 bio freeze; ss 12:54 Iodine; ss 12:54 PENICILLINS; ss 12:54 Prednisone; ss 12:54 Streptomycin; ss - PMHx: 12:54 GERD; Hypertension; ss - Immunization history:: Pneumococcal vaccine is not up to date, Flu vaccine is not up to date. - Social history:: Smoking status: Patient/guardian denies using tobacco. - Ebola Screening: : Patient denies exposure to infectious person Patient denies travel to an Ebola-affected area in the 21 days before illness onset. ROS: 20:56 All other systems are negative. gs Exam: 20:56 Head/Face: Normocephalic, atraumatic. Eyes: Pupils equal round and reactive to light, gs extra-ocular motions intact. Lids and lashes normal. Conjunctiva and sclera are non-icteric and not injected. Cornea within normal limits. Periorbital areas with no swelling, redness, or edema. ENT: Nares patent. No nasal discharge, no septal abnormalities noted. Tympanic membranes are normal and external auditory canals are clear. Oropharynx with no redness, swelling, or masses, exudates, or evidence of obstruction, uvula midline. Mucous membranes moist. Neck: Trachea midline, no thyromegaly or masses palpated, and no cervical lymphadenopathy. Supple, full range of motion without nuchal rigidity, or vertebral point tenderness. No Meningismus. Chest/axilla: Normal chest wall appearance and motion. Nontender with no deformity. No lesions are appreciated. Cardiovascular: Regular rate and rhythm with a normal S1 and S2. No gallops, murmurs, or rubs. Normal PMI, no JVD. No pulse deficits. Respiratory: Lungs have equal breath sounds bilaterally, clear to auscultation and percussion. No rales, rhonchi or wheezes noted. No increased work of breathing, no retractions or nasal flaring. Abdomen/GI: Soft, non-tender, with normal bowel sounds. No distension or tympany. No guarding or rebound. No evidence of tenderness throughout. Back: No spinal tenderness. No costovertebral tenderness. Full range of motion. Skin: Warm, dry with normal turgor. Normal color with no rashes, no lesions, and no evidence of cellulitis. MS/ Extremity: Pulses equal, no cyanosis. Neurovascular intact. Full, normal range of motion. Neuro: Awake and alert, GCS 15, oriented to person, place, time, and situation. Cranial nerves II-XII grossly intact. Motor strength 5/5 in all extremities. Sensory grossly intact. Cerebellar exam normal. Normal gait. 20:56 Constitutional: The patient appears alert, awake. 20:56 ECG was reviewed by the Attending Physician. Vital Signs: 12:06 BP 153 / 67; Pulse 68; Resp 17; Temp 98.5(O); Pulse Ox 99% on R/A; Weight 51.71 kg; ss Height 5 ft. 3 in. (160.02 cm); Pain 5/10; 13:45 BP 123 / 65; Pulse 62; Resp 15; Pulse Ox 98% on R/A; aj 14:39 BP 134 / 76; Pulse 78; Resp 17; Pulse Ox 99% on R/A; aj 12:06 Body Mass Index 20.19 (51.71 kg, 160.02 cm) MDM: 12:31 Patient medically screened. 20:56 Differential diagnosis: coronary artery disease chest wall pain, stable angina, gs unstable angina. Data reviewed: vital signs, nurses notes. 20:56 Response to treatment: the patient's symptoms have resolved after treatment, the patient's pain is gone. 04/28 12:31 Order name: Basic Metabolic Panel; Complete Time: 13:46 gs 04/28 12:31 Order name: CBC with Diff; Complete Time: 13:46 04/28 12:31 Order name: LFT's; Complete Time: 13:46 04/28 12:31 Order name: Magnesium; Complete Time: 13:46 04/28 12:31 Order name: NT PRO-BNP; Complete Time: 13:46 04/28 12:31 Order name: PT-INR; Complete Time: 13:46 04/28 12:31 Order name: Troponin (emerg Dept Use Only); Complete Time: 13:46 04/28 12:31 Order name: XRAY Chest (1 view); Complete Time: 14:16 04/28 12:31 Order name: EKG; Complete Time: 12:31 04/28 12:31 Order name: Cardiac monitoring; Complete Time: 12:40 04/28 12:31 Order name: EKG - Nurse/Tech; Complete Time: 12:40 04/28 12:31 Order name: IV Saline Lock; Complete Time: 12:40 04/28 12:31 Order name: Labs collected and sent; Complete Time: 12:41 04/28 12:31 Order name: O2 Per Protocol; Complete Time: 12:50 04/28 12:31 Order name: O2 Sat Monitoring; Complete Time: 12:51 gs EC:56 Rhythm is regular. DC interval is normal. No Q waves. T waves are Flattened. No ST gs changes noted. Clinical impression: NSR w/ Non-specific ST/T Changes. Interpreted by me. Administered Medications: No medications were administered Disposition: 04/28/18 14:20 Discharged to Home. Impression: Chest pain, unspecified. - Condition is Stable. - Medication Reconciliation Form, Thank You Letter, Antibiotic Education, Prescription Opioid Use form. - Follow up: Private Physician; When: 2 - 3 days; Reason: Re-evaluation by your physician. Signatures: Dispatcher [employer] Carrie Weber RN RN aj Smirch, Shelby, RN RN ss Starr, Gregory, MD MD Corrections: (The following items were deleted from the chart) 14:41 14:20 04/28/2018 14:20 Discharged to Home. Impression: Chest pain, unspecified. aj Condition is Stable. Forms are Medication Reconciliation Form, Thank You Letter, Antibiotic Education, Prescription Opioid Use. Follow up: Private Physician; When: 2 - 3 days; Reason: Re-evaluation by your physician. gs
--- NOTE | 2018-04-28 14:20 | ER ---
Nurse's Notes [facility] Name: Kimberly Simons Age: 83 yrs Sex: Female : 1935 Arrival Date: 04/28/2018 Time: 12:05 Bed 27 Private MD: Diagnosis: Chest pain, unspecified Presentation: 04/28 12:06 Presenting complaint: EMS states: Intermittent chest pressure that began during recent ss admission. Pt was recently diagnosed with Afib and placed on Xarelto and Betapace. Pt is unsure whether or not her symptoms are related to the recent medication adjustments. Transition of care: patient was not received from another setting of care. Onset of symptoms is unknown. Risk Assessment: Do you want to hurt yourself or someone else? Patient reports no desire to harm self or others. Initial Sepsis Screen: Does the patient meet any 2 criteria? No. Patient's initial sepsis screen is negative. Does the patient have a suspected source of infection? No. Patient's initial sepsis screen is negative. Care prior to arrival: None. 12:06 Method Of Arrival: EMS: [facility] [place] [place] [facility] 12:06 Acuity: RUFUS 3 ss Historical: - Allergies: 12:54 MARLENA INHIBITORS; ss 12:54 Benadryl; ss 12:54 bio freeze; ss 12:54 Iodine; ss 12:54 PENICILLINS; ss 12:54 Prednisone; ss 12:54 Streptomycin; ss - PMHx: 12:54 GERD; Hypertension; ss - Immunization history:: Pneumococcal vaccine is not up to date, Flu vaccine is not up to date. - Social history:: Smoking status: Patient/guardian denies using tobacco. - Ebola Screening: : Patient denies exposure to infectious person Patient denies travel to an Ebola-affected area in the 21 days before illness onset. Screenin:54 Abuse screen: Denies threats or abuse. Denies injuries from another. Nutritional ss screening: No deficits noted. Tuberculosis screening: No symptoms or risk factors identified. Never had TB. Fall Risk None identified. Assessment: 12:10 General: Appears in no apparent distress. comfortable, Behavior is calm, cooperative, ss Denies fever, feeling ill, fatigue, chills. Pain: Complains of pain in chest Pain does not radiate. Pain currently is 5 out of 10 on a pain scale. Quality of pain is described as pressure, Pain began off and on since placed on new medication during recent admission Is continuous. Neuro: Level of Consciousness is awake, alert, obeys commands, Oriented to person, place, time, situation. Cardiovascular: Denies diaphoresis, nausea, Heart tones S1 S2 present Capillary refill < 3 seconds is brisk in bilateral fingers. Respiratory: Airway is patent Respiratory effort is even, unlabored, Respiratory pattern is regular, symmetrical, Breath sounds are clear bilaterally. GI: Abdomen is non-distended, Bowel sounds present X 4 quads. Patient currently denies abdominal pain, diarrhea, nausea, vomiting. : No signs and/or symptoms were reported regarding the genitourinary system. EENT: No signs and/or symptoms were reported regarding the EENT system. Derm: Skin is intact, is healthy with good turgor, Skin is dry, Skin is pink, warm \T\ dry. normal. Musculoskeletal: Circulation, motion, and sensation intact. Range of motion: intact in all extremities, Swelling absent. 13:18 General: Appears in no apparent distress. comfortable, Behavior is calm, cooperative. aj Neuro: Level of Consciousness is awake, alert, obeys commands, Oriented to person, place, time, situation, Appropriate for age. Cardiovascular: Reports since Intermittent chest pressure for weeks. Capillary refill < 3 seconds in bilateral fingers Patient's skin is warm and dry. Respiratory: Airway is patent Respiratory effort is even, unlabored, Respiratory pattern is regular, symmetrical. GI: No signs and/or symptoms were reported involving the gastrointestinal system. Abdomen is flat, non-distended. Derm: Skin is intact, is healthy with good turgor, Skin is pink, warm \T\ dry. normal. Vital Signs: 12:06 BP 153 / 67; Pulse 68; Resp 17; Temp 98.5(O); Pulse Ox 99% on R/A; Weight 51.71 kg; Height 5 ft. 3 in. (160.02 cm); Pain 5/10; 13:45 BP 123 / 65; Pulse 62; Resp 15; Pulse Ox 98% on R/A; aj 14:39 BP 134 / 76; Pulse 78; Resp 17; Pulse Ox 99% on R/A; aj 12:06 Body Mass Index 20.19 (51.71 kg, 160.02 cm) ED Course: 12:05 Patient arrived in ED. ss 12:06 Arm band placed on right wrist. ss 12:07 Triage completed. ss 12:10 Maintain EMS IV. Dressing intact. Good blood return noted. Site clean \T\ dry. Gauge \T\ abel 3 site: 20-gauge in Left A/C. 12:15 Placed in gown. Bed in low position. Call light in reach. Side rails up X 1. Side rails jp3 up X2. Warm blanket given. cafeteria monitor on. Pulse ox on. NIBP on. 12:19 EKG done, by rehab tech. reviewed by Tenzin Granger MD. at1 12:20 Laz Garrison MD is Attending Physician. gs 12:25 Initial lab(s) drawn, by pa, sent to lab. jp3 12:39 Basic Metabolic Panel Sent. jp3 12:39 CBC with Diff Sent. jp3 12:39 LFT's Sent. jp3 12:39 Magnesium Sent. jp3 12:39 NT PRO-BNP Sent. jp3 12:39 PT-INR Sent. jp3 12:39 Troponin (emerg Dept Use Only) Sent. jp3 12:43 Carrie Grove, RN is Primary Nurse. aj 12:54 Patient maintains SpO2 saturation greater than 95% on room air. ss 13:30 XRAY Chest (1 view) In Process Unspecified. EDMS 13:31 X-ray completed. Portable x-ray completed in exam room. Patient tolerated procedure az well. 14:39 No provider procedures requiring assistance completed. IV discontinued, intact, aj bleeding controlled, No redness/swelling at site. Pressure dressing applied. Administered Medications: No medications were administered Outcome: 14:20 Discharge ordered by . gs 14:39 Discharged to home ambulatory, with family. aj 14:39 Condition: good 14:39 Discharge instructions given to patient, Instructed on discharge instructions, follow up and referral plans. Demonstrated understanding of instructions, follow-up care. 14:41 Patient left the ED. aj Signatures: Dispatcher [employer] EDMS Carrie Grove, Marcia Apple RN, RN RN ss Gonzales, Amanda, refuse collector EKG Tat1 Laz Garrison MD MD Agusto Masters jp3 [place] [facility]
[2018-04-28 15:18] VITALS: TEMP 98.5
[2018-04-28 15:20] VITALS: BP 134/76; O2SAT 99
--- NOTE | 2018-04-28 15:46 | EKG ---
Test Date: 2018-04-28 Test Time: 12:26:11 Brake Specialist: DEANN MEASUREMENT RESULTS: Intervals: Rate: 61 MO: 170 QRSD: 90 QT: 446 QTc: 448 Beatrice: P: 48 MO: 170 QRS: -46 T: 29 INTERPRETIVE STATEMENTS: Normal sinus rhythm Left axis deviation ST & T wave abnormality, non specific Anterior infarct Abnormal ECG Compared to ECG 04/23/2018 09:09:01 ST (T wave) deviation now present Electronically Signed On 04-28-18 15:46:12 CDT by Arnold Dickson
== END 2018-04-28 14:41 | disposition home or self-care (01) ==
LOC: ER 12:04
DX: R07.9 Chest pain, unspecified (principal); I10 Essential (primary) hypertension; Z88.0 Allergy status to penicillin
CPT/HCPCS: 36415; 71045; 80048; 80076; 83735; 83880; 84484; 85025; 85610; 93005; 99285

== ENCOUNTER 2018-06-10 10:11 | Inpatient (IN) | payer OTHER ==
[2018-06-10 10:56] LABS: Absolute Lymphocytes (CBC) 1.3 K/uL (0.7-4.9); Absolute Monocytes 1.4 K/uL (0.1-1.3); Absolute Neutrophil 4.6 K/uL (1.8-8.0); Basophils % 0.6 % (0-1.3); Eosinophils % 0.6 % (0-4.4); Hematocrit 35.4 % (36.0-45.0); Lymphocytes % 17.9 % (15.3-44.8); MCH 31.3 pg (27.0-35.0); MCV 86.8 fL (80-100); MPV 7.1 fL (7.6-11.3); Monocytes % 19.2 % (3.3-12.3); RBC Red Blood Cell Count 4.08 M/uL (3.86-4.86)
[2018-06-10 11:13] LABS: Platelet Estimate ADEQ; Urine White Blood Cell Casts OK
[2018-06-10 11:14] LABS: Blood Morphology Comment NOT SEEN (NOT SEEN)
--- NOTE | 2018-06-10 12:13 | EDPHYS ---
Physician Documentation [facility] Name: Kimberly Simons Age: 83 yrs Sex: Female : 1935 Arrival Date: 06/10/2018 Time: 10:14 Bed 18 Private MD: ED Physician Laz Garrison HPI: 06/10 12:09 This 83 yrs old Female presents to ER via Ambulatory with complaints of abl gs labs. 12:09 Onset: The symptoms/episode began/occurred yesterday. Associated signs and symptoms: gs Pertinent negatives: anorexia, ketones in urine, nausea, vomiting. Current symptoms: In the emergency department the patient's symptoms are unchanged from the initial presentation. It is unknown whether or not the patient has had similar symptoms in the past. The patient has been recently seen by a physician: the patient's primary care provider. Historical: - Allergies: 10:33 MARLENA INHIBITORS; ph 10:33 Benadryl; ph 10:33 bio freeze; ph 10:33 Iodine; ph 10:33 PENICILLINS; ph 10:33 Prednisone; ph 10:33 Streptomycin; ph - PMHx: 10:33 GERD; Hypertension; Hypothyroidism; ph - PSHx: 10:35 Hysterectomy; Vein stripping; hb - Immunization history:: Adult Immunizations not immunized. - Social history:: Smoking status: Patient/guardian denies using tobacco. - Ebola Screening: : No symptoms or risks identified at this time. ROS: 12:09 All other systems are negative. gs Exam: 12:09 Head/Face: Normocephalic, atraumatic. Eyes: Pupils equal round and reactive to light, gs extra-ocular motions intact. Lids and lashes normal. Conjunctiva and sclera are non-icteric and not injected. Cornea within normal limits. Periorbital areas with no swelling, redness, or edema. ENT: Nares patent. No nasal discharge, no septal abnormalities noted. Tympanic membranes are normal and external auditory canals are clear. Oropharynx with no redness, swelling, or masses, exudates, or evidence of obstruction, uvula midline. Mucous membranes moist. Neck: Trachea midline, no thyromegaly or masses palpated, and no cervical lymphadenopathy. Supple, full range of motion without nuchal rigidity, or vertebral point tenderness. No Meningismus. Chest/axilla: Normal chest wall appearance and motion. Nontender with no deformity. No lesions are appreciated. Cardiovascular: Regular rate and rhythm with a normal S1 and S2. No gallops, murmurs, or rubs. Normal PMI, no JVD. No pulse deficits. Respiratory: Lungs have equal breath sounds bilaterally, clear to auscultation and percussion. No rales, rhonchi or wheezes noted. No increased work of breathing, no retractions or nasal flaring. Abdomen/GI: Soft, non-tender, with normal bowel sounds. No distension or tympany. No guarding or rebound. No evidence of tenderness throughout. Back: No spinal tenderness. No costovertebral tenderness. Full range of motion. Skin: Warm, dry with normal turgor. Normal color with no rashes, no lesions, and no evidence of cellulitis. MS/ Extremity: Pulses equal, no cyanosis. Neurovascular intact. Full, normal range of motion. Neuro: Awake and alert, GCS 15, oriented to person, place, time, and situation. Cranial nerves II-XII grossly intact. Motor strength 5/5 in all extremities. Sensory grossly intact. Cerebellar exam normal. Normal gait. 12:09 Constitutional: The patient appears alert, awake. 12:09 ECG was reviewed by the Attending Physician. Vital Signs: 10:30 BP 140 / 68; Pulse 71; Resp 18; Temp 98.1; Pulse Ox 98% on R/A; Weight 52.16 kg; Height ph 5 ft. 2 in. (157.48 cm); Pain 0/10; 12:00 BP 127 / 55; Pulse 69; Resp 15; Pulse Ox 97% on R/A; hb 13:05 BP 114 / 58; Pulse 77; Resp 19; Pulse Ox 95% on R/A; ca1 14:04 BP 113 / 60; Pulse 68; Resp 18; Pulse Ox 97% ; ca1 15:23 BP 153 / 67; Pulse 70; Resp 22; Pulse Ox 98% on R/A; ca1 16:15 BP 139 / 69; Pulse 75; Resp 18; Pulse Ox 100% on R/A; ca1 19:17 BP 132 / 62; Pulse 66; Resp 16; Pulse Ox 98% ; Pain 0/10; ls4 10:30 Body Mass Index 21.03 (52.16 kg, 157.48 cm) ph MDM: 10:37 Patient medically screened. 12:09 Differential diagnosis: hypoglycemic episode, hypok,hypomag,hyponatremia. Data reviewed: vital signs, nurses notes, lab test result(s), EKG. Counseling: I had a detailed discussion with the patient and/or guardian regarding: the historical points, exam findings, and any diagnostic results supporting the discharge/admit diagnosis, lab results, the need for further work-up and treatment in the hospital. Response to treatment: the patient's symptoms have mildly improved after treatment. 06/10 10:32 Order name: CBC with Diff; Complete Time: 11:37 06/10 10:32 Order name: Basic Metabolic Panel; Complete Time: 11:37 06/10 10:59 Order name: CBC Smear Scan; Complete Time: 11:37 [facility] 06/10 11:38 Order name: Magnesium 06/10 12:08 Order name: Urine Osmolality 06/10 12:08 Order name: Urine Sodium Random 06/10 12:08 Order name: Osmolality, Serum 06/10 12:56 Order name: Basic Metabolic Panel [facility] 06/10 12:56 Order name: T4 Free [facility] 06/10 12:56 Order name: Thyroid Stimulating Hormone [facility] 06/10 13:09 Order name: Urine Dipstick--Ancillary (enter results) 06/10 15:08 Order name: Urine Dipstick-Ancillary [facility] 06/10 17:51 Order name: Urinalysis [facility] 06/10 18:06 Order name: Urine Microscopic Only [facility] 06/10 10:32 Order name: EKG; Complete Time: 10:33 06/10 10:32 Order name: EKG - Nurse/Tech; Complete Time: 11:53 06/10 12:56 Order name: CONS Physician Consult [facility] 06/10 12:56 Order name: Heart Healthy [facility] EC:09 Rate is 70 beats/min. Rhythm is regular. KS interval is normal. QRS interval is normal. QT interval is prolonged. Clinical impression: NSR w/ Non-specific ST/T Changes. Interpreted by me. Administered Medications: 12:15 Drug: Potassium Effervescent Tablet 50 mEq Route: PO; hb 14:12 Follow up: Response: No adverse reaction ca1 Disposition: 06/10/18 12:13 Hospitalization ordered by Quinten Nguyen for Observation. Preliminary diagnosis is Hypo-osmolality and hyponatremia. - Bed requested for Intensive Care Unit. - Status is Observation. ls4 - Condition is Stable. - Problem is new. - Symptoms are unchanged. UTI on Admission? No Signatures: Dispatcher [employer] EDSavita Barahona, RN RN dw Beth Presley, RN RN Patricia Pantoja RN RN Laz Garrison MD MD Kathy Castle Lisa RN RN ls4 AcElham nicole RN TEJ ca1 Smith, Sangita lt1 Corrections: (The following items were deleted from the chart) 12:24 12:13 Hospitalization Ordered by Quinten [employer] DO for Observation. Preliminary lt1 diagnosis is Hypo-osmolality and hyponatremia. Bed requested for Telemetry/MedSurg (observation). Status is Observation. Condition is Stable. Problem is new. Symptoms are unchanged. UTI on Admission? No. gs 12:26 12:25 Immunization history: Adult Immunizations not immunized, ca1 ca1 13:57 12:24 06/10/2018 12:13 [facility] dw Preliminary diagnosis is Hypo-osmolality and hyponatremia. Bed requested for Telemetry/MedSurg (observation). Status is Observation. Condition is Stable. Problem is new. Symptoms are unchanged. UTI on Admission? No. lt1 14:38 13:57 06/10/2018 12:13 Hospitalization Ordered by [facility] [employer] DO for Observation. eb Preliminary diagnosis is Hypo-osmolality and hyponatremia. Bed requested for Telemetry/MedSurg (observation). Status is Observation. Condition is Stable. Problem is new. Symptoms are unchanged. UTI on Admission? No. dw 14:39 14:38 06/10/2018 12:13 Hospitalization Ordered by [facility] [employer] DO for Observation. dw Preliminary diagnosis is Hypo-osmolality and hyponatremia. Bed requested for Intensive Care Unit. Status is Observation. Condition is Stable. Problem is new. Symptoms are unchanged. UTI on Admission? No. eb 14:50 14:39 06/10/2018 12:13 Hospitalization Ordered by Quinten [employer] DO for Observation. hb Preliminary diagnosis is Hypo-osmolality and hyponatremia. Bed requested for [facility] ER HOLD. Status is Observation. Condition is Stable. Problem is new. Symptoms are unchanged. UTI on Admission? No. dw 15:31 14:50 06/10/2018 12:13 Hospitalization Ordered by [facility] DO for Observation. lt1 Preliminary diagnosis is Hypo-osmolality and hyponatremia. Bed requested for [facility] ER HOLD. Status is Observation. Condition is Stable. Problem is new. Symptoms are unchanged. UTI on Admission? No. hb 18:39 15:31 06/10/2018 12:13 Hospitalization Ordered by [facility] DO for Observation. eb Preliminary diagnosis is Hypo-osmolality and hyponatremia. Bed requested for [facility] ER HOLD. Status is Observation. Condition is Stable. Problem is new. Symptoms are unchanged. UTI on Admission? No. lt1 19:49 18:39 06/10/2018 12:13 Hospitalization Ordered by [facility] DO for Observation. ls4 Preliminary diagnosis is Hypo-osmolality and hyponatremia. Bed requested for Intensive Care Unit. Status is Observation. Condition is Stable. Problem is new. Symptoms are unchanged. UTI on Admission? No. eb
--- NOTE | 2018-06-10 12:13 | ER ---
Nurse's Notes [facility] Name: Kimberly Simons Age: 83 yrs Sex: Female : 1935 Arrival Date: 06/10/2018 Time: 10:14 Bed 18 Private MD: Diagnosis: Hypo-osmolality and hyponatremia Presentation: 06/10 10:29 Presenting complaint: Patient states: I had routine blood work done yesterday and they ph called me today and said my sodium was low." Pt reports dizziness, denies pain, N/V or syncope. Transition of care: patient was not received from another setting of care. Onset of symptoms was June 10, 2018. Risk Assessment: Do you want to hurt yourself or someone else? Patient reports no desire to harm self or others. Initial Sepsis Screen: Does the patient meet any 2 criteria? No. Patient's initial sepsis screen is negative. Does the patient have a suspected source of infection? No. Patient's initial sepsis screen is negative. Care prior to arrival: None. 10:29 Method Of Arrival: Ambulatory ph 10:29 Acuity: RUFUS 3 ph Historical: - Allergies: 10:33 MARLENA INHIBITORS; ph 10:33 Benadryl; ph 10:33 bio freeze; ph 10:33 Iodine; ph 10:33 PENICILLINS; ph 10:33 Prednisone; ph 10:33 Streptomycin; ph - PMHx: 10:33 GERD; Hypertension; Hypothyroidism; ph - PSHx: 10:35 Hysterectomy; Vein stripping; hb - Immunization history:: Adult Immunizations not immunized. - Social history:: Smoking status: Patient/guardian denies using tobacco. - Ebola Screening: : No symptoms or risks identified at this time. Screenin:56 Abuse screen: Denies threats or abuse. Denies injuries from another. Nutritional hb screening: No deficits noted. Tuberculosis screening: No symptoms or risk factors identified. Fall Risk None identified. Assessment: 11:45 General: Appears in no apparent distress. Behavior is calm, cooperative. Pain: Denies hb pain. Neuro: Level of Consciousness is awake, alert, obeys commands, Oriented to person, place, time, situation. Cardiovascular: Heart tones S1 S2 present Capillary refill < 3 seconds Patient's skin is warm and dry. Respiratory: Airway is patent Respiratory effort is even, unlabored, Respiratory pattern is regular, symmetrical, Breath sounds are clear bilaterally. GI: No signs and/or symptoms were reported involving the gastrointestinal system. : No signs and/or symptoms were reported regarding the genitourinary system. EENT: No signs and/or symptoms were reported regarding the EENT system. Derm: Skin is intact, is healthy with good turgor, Skin is pink, warm \\T\\ dry. Musculoskeletal: No signs and/or symptoms reported regarding the musculoskeletal system. 12:21 Reassessment: Patient appears in no apparent distress at this time. No changes from ca1 previously documented assessment. Patient and/or family updated on plan of care and expected duration. Pain level reassessed. Patient is alert, oriented x 3, equal unlabored respirations, skin warm/dry/pink. 13:25 Reassessment: Patient appears in no apparent distress at this time. No changes from ca1 previously documented assessment. Patient and/or family updated on plan of care and expected duration. Pain level reassessed. Patient is alert, oriented x 3, equal unlabored respirations, skin warm/dry/pink. Awaiting room assignment. . 15:12 Reassessment: Pt returned from floor, hospitalist Dr. Nguyen changed admission to ICU, hb no ICU bed available at this time. Pt to remain in ER until ICU bed is available. Charge Nurse Marcia BURNHAM and clinical documentation manager Magalys Freeman RN aware. 16:00 Reassessment: Patient appears in no apparent distress at this time. No changes from ca1 previously documented assessment. Patient and/or family updated on plan of care and expected duration. Pain level reassessed. Patient is alert, oriented x 3, equal unlabored respirations, skin warm/dry/pink. Sitting up in bed eating food provided. . 17:00 Reassessment: Patient appears in no apparent distress at this time. No changes from hb previously documented assessment. Patient and/or family updated on plan of care and expected duration. Pain level reassessed. Patient is alert, oriented x 3, equal unlabored respirations, skin warm/dry/pink. Charting continued at [facility]. . Vital Signs: 10:30 BP 140 / 68; Pulse 71; Resp 18; Temp 98.1; Pulse Ox 98% on R/A; Weight 52.16 kg; Height ph 5 ft. 2 in. (157.48 cm); Pain 0/10; 12:00 BP 127 / 55; Pulse 69; Resp 15; Pulse Ox 97% on R/A; hb 13:05 BP 114 / 58; Pulse 77; Resp 19; Pulse Ox 95% on R/A; ca1 14:04 BP 113 / 60; Pulse 68; Resp 18; Pulse Ox 97% ; ca1 15:23 BP 153 / 67; Pulse 70; Resp 22; Pulse Ox 98% on R/A; ca1 16:15 BP 139 / 69; Pulse 75; Resp 18; Pulse Ox 100% on R/A; ca1 19:17 BP 132 / 62; Pulse 66; Resp 16; Pulse Ox 98% ; Pain 0/10; ls4 10:30 Body Mass Index 21.03 (52.16 kg, 157.48 cm) ph ED Course: 10:14 Patient arrived in ED. ph 10:15 Laz Garrison MD is Attending Physician. gs 10:30 Triage completed. ph 10:33 Arm band placed on Patient placed in an exam room, on environmental monitoring technician, on pulse ph oximetry. 10:40 Patient has correct armband on for positive identification. Placed in gown. Bed in low ca1 position. Call light in reach. Side rails up X 1. 10:42 Initial lab(s) drawn, by ak, sent to lab. ca1 10:42 Inserted saline lock: 22 gauge in left antecubital area, using aseptic technique. Blood ca1 collected. 10:44 Patricia Pantoja, RN is Primary Nurse. hb 11:11 EKG done, by senior geotechnical engineer. reviewed by Laz Garrison MD. at1 12:12 Quinten Nguyen DO is Hospitalizing Provider. gs 12:21 Awaiting bed assignment. ca1 14:40 No provider procedures requiring assistance completed. Patient admitted, IV remains in ca1 place. 15:50 Patient requests food. ca1 16:31 Awaiting bed assignment, Awaiting: for ICU. ca1 Administered Medications: 12:15 Drug: Potassium Effervescent Tablet 50 mEq Route: PO; hb 14:12 Follow up: Response: No adverse reaction ca1 Outcome: 12:13 Decision to Hospitalize by Provider. gs 14:40 Admitted to Tele accompanied by tech, via wheelchair, room 430, Report called to Ronnie maynor Beavers Jr., RN 14:40 Condition: stable 14:40 Instructed on the need for admit. 14:50 Patient left the ED. hb 19:29 Admitted to ICU accompanied by nurse, accompanied by alfred, family with patient, via ls4 stretcher, room 8, with chart, Report called to THANG BURNHAM 19:49 Patient left the ED. ls4 Signatures: Carrie Hernandez, senior living advisor EKG Tat1 Beth Presley, RN RN Patricia Pantoja, RN RN Laz Garrison MD MD Sandy Greco RN RN ls4 Elham Dooley RN RN ca1 Corrections: (The following items were deleted from the chart) 12:26 12:25 Immunization history: Adult Immunizations not immunized, ca1 ca1
[2018-06-10] MEDS ORDERED: POTASSIUM 25 MEQ EFFERV TAB ONE (12:22)
[2018-06-10] MEDS ORDERED: ONDANSETRON 4 MG/2 ML VIAL IV PRN (12:47)
[2018-06-10] MEDS ORDERED: ACETAMINOPHEN 500 MG TAB PO PRN (12:47)
[2018-06-10 14:07] LABS: Thyroid Stimulating Hormone 0.489 uIU/mL (0.360-3.740)
[2018-06-10 15:07] LABS: Urine Blood 1+ (NEG); Urine Glucose NEGATIVE (NEG); Urine Protein NEGATIVE (NEG); Urine Specific Gravity 1.015 (1.005-1.030)
--- NOTE | 2018-06-10 16:32 | P.HP ---
Certification for Inpatient Patient admitted to: Inpatient With expected LOS: >2 Midnights Patient will require the following post-hospital care: None Practitioner: I am a practitioner with admitting privileges, knowledge of patient current condition, hospital course, and medical plan of care. Services: Services provided to patient in accordance with Admission requirements found in Title 42 Section 412.3 of the Code of Federal Regulations Patient History Date of Service: 06/10/18 Primary Care Provider: Magalie Shin NP; Cardiology-Dr. Dickson Reason for admission: Abnormal lab History of Present Illness: 83-year-old female presented to emergency room after she had abnormal lab drawn yesterday. She was told to go to the ER due to low sodium. She reports that she was started on a new medication hydrochlorothiazide about 3 weeks ago by Cardiology. Since that time she has cut back on her salt intake. She has been increasing her fluid intake to about 3 L per day. Since that time she has been feeling weak and tired. No significant shortness of breath, chest pain noted. In the ER patient evaluated. Sodium at 117, potassium 3.0. BUN of 15, creatinine 0.9 with a GFR of 60. Glucose 113. Spot urine sodium 53, spot urine osmolalities 252. Serum osmolalities 256. Due to her hyponatremia patient was admitted for further evaluation. When I saw the patient ER, she appeared stable. She did not complain of any significant complaints. She did report recent start of hydrochlorothiazide. Patient with history of atrial fibrillation on chronic anti coagulation therapy , hypertension, hypothyroidism and GERD. Allergies MARLENA Inhibitors Allergy (Verified 05/10/17 21:34) Anaphylaxis Penicillins Allergy (Verified 05/10/17 21:34) Hives camphor [From Biofreeze] Adverse Reaction (Verified 05/10/17 21:34) Hives diphenhydramine [From Benadryl] Adverse Reaction (Verified 05/10/17 21:34) Nausea/Vomiting iodine Adverse Reaction (Verified 05/10/17 21:34) Hives menthol [From Biofreeze] Adverse Reaction (Verified 05/10/17 21:34) Hives prednisone Adverse Reaction (Verified 05/10/17 21:34) Hives streptomycin Adverse Reaction (Verified 05/10/17 21:34) Rash Home medications list reviewed: Yes Home Medications: Amlodipine Besylate 10 mg PO DAILY 04/23/18 Levothyroxine [Synthroid*] 100 mcg PO DAILY 04/23/18 Losartan Potassium 100 mg PO DAILY 04/23/18 Multivit-Min/FA/Lycopen/Lutein [Complete Multivitamin Tab] 1 tab PO DAILY Pantoprazole [Protonix Tab*] 40 mg PO DAILY 04/23/18 Ubidecarenone/Vit E Acetate [Co Q-10 100 mg Softgel] 1 each PO DAILY 04/23/18 Vit B12/Lmefolate Ca/Vit B6/B2 [l-Methyl-Mc Tablet] 1 each PO DAILY 04/23/18 Vit D3/Folic Acid/B2/B6/B12 [Folgard Tablet] 1 tab PO DAILY 04/23/18 Rivaroxaban [Xarelto] 20 mg PO DAILY #30 tablet 04/25/18 Sotalol HCl [Betapace*] 40 mg PO BID 6AM 6PM #60 tab 04/25/18 - Past Medical/Surgical History Diabetic: No -: Hypothyroidism -: HTN -: Atrial fibrillation on chronic anti coagulation therapy -: GERD -: Hysterectomy -: Vein stripping Psychosocial/ Personal History: The patient is a . She has 4 children. She does not work. - Family History Mother -: Heart disease, Cancer Father -: Stroke Brother -: Heart disease Sister -: Heart disease - Social History Smoking Status: Never smoker Alcohol use: No CD- Drugs: No Caffeine use: Yes Place of Residence: Home Review of Systems General: Weakness, As per HPI Eyes: Unremarkable ENT: Unremarkable Respiratory: Unremarkable Cardiovascular: Unremarkable Gastrointestinal: Unremarkable Genitourinary: Unremarkable Musculoskeletal: Unremarkable Integumentary: Unremarkable Neurological: Unremarkable Lymphatics: Unremarkable Physical Examination - Vital Signs Temperature: 98.1 F Blood Pressure: 113/60 Pulse: 68 Respirations: 18 - Physical Exam General: Alert, In no apparent distress, Oriented x3, Cooperative HEENT: Atraumatic, Normocephalic, PERRLA, Mucous membr. moist/pink Neck: Supple, No Thyromegaly Respiratory: Clear to auscultation bilaterally, Normal air movement Cardiovascular: Normal pulses, Regular rate/rhythm Gastrointestinal: Normal bowel sounds, Soft and benign, Non-distended, No tenderness, No masses, No rebound, No guarding Musculoskeletal: No erythema, No tenderness, No warmth Integumentary: No tenderness/swelling, No erythema, No warmth, No cyanosis Neurological: Normal speech, Normal strength at 5/5 x4 extr, Normal tone, Normal affect - Studies Laboratory Data (last 24 hrs) 06/10/18 10:42: Magnesium 2.0 D 06/10/18 10:42: Sodium 117 L*, Potassium 3.0 L, BUN 15, Creatinine 0.90, Glucose 113 H 06/10/18 10:42: WBC 7.5, Hgb 12.8, Hct 35.4 L, Plt Count 332 Assessment and Plan - Plan Impression: Chronic severe hyponatremia likely from medication Hypokalemia Atrial fibrillation on chronic anti coagulation therapy Hypertension Hypothyroidism GERD Plan: Chronic severe hyponatremia likely from medication: This is likely related to hydrochlorothiazide. Will discontinue medication. Will recheck lab BMP within 4 hr. Case discussed at length with nephrology. Will need to consider IV fluids versus fluid restriction, weight nephrology recommendation. Will reassess at next lab draw. Patient will be admitted to ICU for close monitoring due to her severe hyponatremia. Hypokalemia: Will monitor and replace potassium. Replacement protocol in place. Atrial fibrillation on chronic anti coagulation therapy: Will continue with her medication. Will monitor closely. Patient on sotalol and Xarelto. Hypertension: Will continue with losartan. Will discontinue hydrochlorothiazide. Will provide IV medication as needed. Hypothyroidism: Will check her tsh and free T4. Will continue with her medication. GERD: Will provide medication. Discharge Plan: Home Plan to discharge in: 48 Hours - Advance Directives Does patient have a Living Will: Yes Does patient have a Durable POA for Healthcare: Yes - Code Status/Comfort Care Code Status Assessed: Yes (Patient full code.) Time Spent Managing Pts Care (In Minutes): 55
[2018-06-10] MEDS: RIVAROXABAN 20 MG TABLET PO SCH (17:00)
[2018-06-10 17:42] LABS: Urine Appearance CLEAR; Urine Bilirubin NEGATIVE (NEG); Urine Blood 1+ (NEG); Urine Color YELLOW; Urine Glucose NEGATIVE (NEG); Urine Protein NEGATIVE (NEG); Urine Specific Gravity <=1.005 (1.005-1.030); Urine Urobilinogen 0.2 mg/dL (0.2-1.0)
--- NOTE | 2018-06-10 17:47 | EKG ---
Test Date: 2018-06-10 Test Time: 10:59:16 Rn Supplemental: DEANN MEASUREMENT RESULTS: Intervals: Rate: 70 ND: 196 QRSD: 98 QT: 448 QTc: 483 [place]: P: 61 ND: 196 QRS: -47 T: -75 INTERPRETIVE STATEMENTS: Sinus rhythm with premature atrial complexes Left axis deviation ST & T wave abnormality, consider inferior ischemia ST & T wave abnormality, consider anterolateral ischemia Prolonged QT Abnormal ECG Compared to ECG 04/28/2018 12:26:11 Atrial premature complex(es) now present Prolonged QT interval now present Myocardial infarct finding no longer present ST (T wave) deviation still present Electronically Signed On 06-10-18 17:46:49 HEART DOCTOR by Arnold Dickson
[2018-06-10 17:50] LABS: Urine Microscopic Reflex ORDER UMIC
[2018-06-10] MEDS: SOTALOL HCL 80 MG TAB PO SCH (18:00)
[2018-06-10 18:05] LABS: Urine Bacteria <20 /HPF (<20); Urine Culture Reflex Order REFLEXED
[2018-06-10] MEDS: NA CHLORIDE 0.9% 1,000 ML IV SCH (20:23)
--- NOTE | 2018-06-10 20:49 | P.CNS ---
Date of Consult: 06/10/18 Reason for Consult: Hyponatremia Requesting Physician: Quinten Nguyen Primary Care Provider: Magalie Shin NP; Cardiology-Dr. Dickson Chief Complaint: Abnormal lab History of Present Illness: 83 yo W[place] Afib presented to the ER with 3 days of moderate, progressive dizziness in the setting of hyponatremia. Drinks 3 liters of water per day and is on a low sodium diet. Started HCTZ 4 weeks ago. Reports episodes of hyponatremia in the past. 83-year-old female presented to emergency room after she had abnormal lab drawn yesterday. She was told to go to the ER due to low sodium. She reports that she was started on a new medication hydrochlorothiazide about 3 weeks ago by Cardiology. Since that time she has cut back on her salt intake. She has been increasing her fluid intake to about 3 L per day. Since that time she has been feeling weak and tired. No significant shortness of breath, chest pain noted. In the ER patient evaluated. Sodium at 117, potassium 3.0. BUN of 15, creatinine 0.9 with a GFR of 60. Glucose 113. Spot urine sodium 53, spot urine osmolalities 252. Serum osmolalities 256. Due to her hyponatremia patient was admitted for further evaluation. 12:09 This 83 yrs old Female presents to ER via Ambulatory with complaints of abl gs labs. 12:09 Onset: The symptoms/episode began/occurred yesterday. Associated signs and symptoms: gs Pertinent negatives: anorexia, ketones in urine, nausea, vomiting. Current symptoms: In the emergency department the patient's symptoms are unchanged from the initial presentation. It is unknown whether or not the patient has had similar symptoms in the past. The patient has been recently seen by a physician: the patient's primary care provider. Allergies MARLENA Inhibitors Allergy (Verified 05/10/17 21:34) Anaphylaxis Penicillins Allergy (Verified 05/10/17 21:34) Hives camphor [From Biofreeze] Adverse Reaction (Verified 05/10/17 21:34) Hives diphenhydramine [From Benadryl] Adverse Reaction (Verified 05/10/17 21:34) Nausea/Vomiting hydrochlorothiazide Adverse Reaction (Verified 06/13/18 00:17) Anaphylaxis iodine Adverse Reaction (Verified 05/10/17 21:34) Hives menthol [From Biofreeze] Adverse Reaction (Verified 05/10/17 21:34) Hives prednisone Adverse Reaction (Verified 05/10/17 21:34) Hives streptomycin Adverse Reaction (Verified 05/10/17 21:34) Rash Thiazides Adverse Reaction (Verified 06/13/18 00:17) Anaphylaxis Home medications list reviewed: Yes Home Medications: Amlodipine Besylate 10 mg PO DAILY 04/23/18 Levothyroxine [Synthroid*] 100 mcg PO DAILY 04/23/18 Multivit-Min/FA/Lycopen/Lutein [Complete Multivitamin Tab] 1 tab PO DAILY Pantoprazole [Protonix Tab*] 40 mg PO DAILY 04/23/18 Ubidecarenone/Vit E Acetate [Co Q-10 100 mg Softgel] 1 each PO DAILY 04/23/18 Vit B12/Lmefolate Ca/Vit B6/B2 [l-Methyl-Mc Tablet] 1 each PO DAILY 04/23/18 Vit D3/Folic Acid/B2/B6/B12 [Folgard Tablet] 1 tab PO DAILY 04/23/18 Rivaroxaban [Xarelto] 20 mg PO DAILY #30 tablet 04/25/18 Sotalol HCl [Betapace*] 40 mg PO BID 6AM 6PM #60 tab 04/25/18 Losartan Potassium 100 mg PO DAILY #30 tablet 06/13/18 - Past Medical/Surgical History Diabetic: No -: Hypothyroidism -: HTN -: Atrial fibrillation on chronic anti coagulation therapy -: GERD -: Hysterectomy -: Vein stripping Psychosocial/ Personal History: The patient is a . She has 4 children. She does not work. - Family History Mother Medical History: Heart disease, Cancer Father Medical History: Stroke Brother Medical History: Heart disease Sister Medical History: Heart disease - Social History Alcohol use: No CD- Drugs: No Caffeine use: Yes Place of Residence: Home Review of Systems 10-point ROS is otherwise unremarkable General: Weakness, Malaise Physical Examination Temp Pulse Resp BP Pulse Ox 98.1 F 66 16 132/62 100 06/10/18 16:32 06/10/18 19:17 06/10/18 19:17 06/10/18 19:17 06/10/18 18:00 General: In no apparent distress, Cooperative HEENT: Atraumatic, Mucous membr. moist/pink Neck: Supple Respiratory: Clear to auscultation bilaterally, Normal air movement Cardiovascular: No edema, Regular rate/rhythm, No rubs Gastrointestinal: Soft and benign, Non-distended, No guarding Musculoskeletal: No clubbing, No contractures Integumentary: No rashes, No cyanosis Neurological: Normal speech Laboratory Data (last 24 hrs) 06/10/18 10:42: Magnesium 2.0 D 06/10/18 10:42: Sodium 117 L*, Potassium 3.0 L, BUN 15, Creatinine 0.90, Glucose 113 H 06/10/18 10:42: WBC 7.5, Hgb 12.8, Hct 35.4 L, Plt Count 332 Conclusions/Impression: A/ Hyponatremia suspicious for polydipsia and complicated by HCTZ. Hypokalemia. HTN. Hypothyroidism, controlled. Dizziness in the setting of hyponatremia. P/ Continue current POC and Medications. Gentle IVF. Give sodium chloride tab. Give another dose of potassium. No HCTZ. AM labs. Daily weight. Thank you kindly for the consultation. Case discussed with Dr. Nguyen Critical Care: Yes (>30min)
[2018-06-10] MEDS ORDERED: POTASSIUM CL SA 10 MEQ TAB PO ONE (20:53)
[2018-06-10 21:19] LABS: Potassium 3.5 mmol/L (3.5-5.1)
[2018-06-11 05:22] LABS: Absolute Lymphocytes (CBC) 1.3 K/uL (0.7-4.9); Absolute Monocytes 1.3 K/uL (0.1-1.3); Absolute Neutrophil 2.9 K/uL (1.8-8.0); Basophils % 0.5 % (0-1.3); Eosinophils % 0.7 % (0-4.4); Hematocrit 35.9 % (36.0-45.0); Lymphocytes % 23.1 % (15.3-44.8); MCH 31.5 pg (27.0-35.0); MCV 89.1 fL (80-100); MPV 7.2 fL (7.6-11.3); Monocytes % 22.9 % (3.3-12.3); RBC Red Blood Cell Count 4.03 M/uL (3.86-4.86)
[2018-06-11 05:27] LABS: Urine Appearance CLEAR; Urine Bilirubin NEGATIVE (NEG); Urine Blood TRACE (NEG); Urine Color YELLOW; Urine Glucose NEGATIVE (NEG); Urine Protein NEGATIVE (NEG); Urine Specific Gravity <=1.005 (1.005-1.030); Urine Urobilinogen 0.2 mg/dL (0.2-1.0); Urine pH 7.5 (5.0-7.0)
[2018-06-11 05:27] LABS: BUN Blood Urea Nitrogen 8 mg/dL (7-18); Bicarbonate 29 mmol/L (21-32); Glucose Level 92 mg/dL (74-106); Magnesium 2.3 mg/dL (1.8-2.4); Phosphorus 2.8 mg/dL (2.5-4.9); Potassium 4.1 mmol/L (3.5-5.1); Sodium Level 123 mmol/L (136-145)
[2018-06-11] MEDS: PANTOPRAZOLE 40MG TABLET PO SCH (05:29)
[2018-06-11] MEDS: SOTALOL HCL 80 MG TAB PO SCH ×2 (05:29→17:01)
[2018-06-11] MEDS: LEVOTHYROXINE SOD 0.1 MG TAB PO SCH (05:29)
[2018-06-11 05:41] LABS: Urine Bacteria <20 /HPF (<20); Urine Culture Reflex Order NOT NEEDED; Urine RBC <5 /HPF (NONE SEEN)
[2018-06-11] MEDS: AMLODIPINE 5 MG TAB PO SCH (08:46)
[2018-06-11] MEDS: NA CHLORIDE 0.9% 1,000 ML IV SCH (13:04)
[2018-06-11 15:17] LABS: Potassium 4.4 mmol/L (3.5-5.1)
--- NOTE | 2018-06-11 15:44 | P.PN ---
Subjective Date of Service: 06/11/18 Primary Care Provider: Magalie Shin NP; Cardiology-Dr. Dickson Chief Complaint: Abnormal lab Subjective: Improving, Doing well Physical Examination - Vital Signs Temperature: 97.8 F Blood Pressure: 107/65 Pulse: 74 Respirations: 17 Pulse Ox (%): 99 - Physical Exam General: Alert, In no apparent distress, Oriented x3, Cooperative HEENT: Atraumatic Neck: Supple Respiratory: Clear to auscultation bilaterally, Normal air movement Cardiovascular: Normal pulses, Regular rate/rhythm Gastrointestinal: Normal bowel sounds, Soft and benign, Non-distended, No masses , No rebound, No guarding Musculoskeletal: No erythema, No tenderness, No warmth Integumentary: No tenderness/swelling, No erythema, No warmth, No cyanosis Neurological: Normal speech, Normal strength at 5/5 x4 extr, Normal tone, Normal affect - Studies Medications List Reviewed: Yes Assessment & Plan Discharge Plan: Home Plan to discharge in: 48 Hours Physician Review Additional Text: Impression: Chronic severe hyponatremia likely from medication Hypokalemia Atrial fibrillation on chronic anti coagulation therapy Hypertension Hypothyroidism GERD Plan: Chronic severe hyponatremia likely from medication: This is likely related to hydrochlorothiazide. Hydrochlorothiazide has been discontinued. Will continue with IV fluids and salt tablets. Will recheck BMP. If improved we will discontinue IV fluids. Case discussed with nephrology. Will physical therapy assess ambulation. If overall improved then can transition patient to the floor. Hypokalemia: Will monitor and replace potassium. Replacement protocol in place. Atrial fibrillation on chronic anti coagulation therapy: Will continue with her medication. Will monitor closely. Patient on sotalol and Xarelto. Hypertension: Will continue with losartan. Will provide IV medication as needed. Hypothyroidism: Will continue with her medication. GERD: Will provide medication. Time Spent Managing Pts Care (In Minutes): 55
[2018-06-11] MEDS: RIVAROXABAN 20 MG TABLET PO SCH (17:01)
--- NOTE | 2018-06-11 18:52 | PN ---
Date of Progress Note: 06/11/2018 Subjective: The patient is seen and examined in the ICU. She states that she feels better. She den ies any more dizziness, but she is not sure how much steady she is going to be on her feet. Physical Examination: Vital signs: Have been reviewed, and temperature of 97.8, pulse rate of 73, respiratory rate of 24, blood pressure 120/53. General: She appears to be in no acute distress. Oral mucosa was moist. HEENT: Atraumatic. Lungs: Clear to auscultation. Abdomen: Soft and nontender. Extremities: Without any evidence of edema. Laboratory Data: Showing sodium improving to 123, potassium of 4.1, chloride improving to 88, and cr eatinine is stable. Serum osmolality continues to be low. CBC showing stable hemoglobin, hematocrit , and platelet count. Medications: Current medications have been reviewed. The patient has been on normal saline at 50 cc an hour, and she got 1 time dose of sodium chloride tablet x1 time dose today and also got 1 time re placement of potassium chloride yesterday. Impression: 1.Hyponatremia secondary to HCTZ use. The patient's sodium was significantly low yesterday, which i s slowly improving at this time with IV fluids. She has repeat labs pending at 3 o'clock, and if sod ium continues to improve, her IV fluids can be stopped and followed up with a.m. labs. 2.Hypokalemia, seems to have resolved. 3.Hypertension, stable. 4.Hypothyroidism, stable. 5.Dizziness in the setting of hyponatremia, improving. Plan: The patient was advised to list HCTZ as an allergy including all thiazide diuretics. Continue with fluids until 3 o'clock labs, and if sodium is improving, IV fluids can be stopped and she can b e transferred up to the floor. Will need physical therapy and occupational therapy evaluation for un steady gait and for evaluation of falls. Continue all other medications and monitor potassium closel y. Plan was discussed with the patient and her family at bedside in detail. All questions were answ ered. FABRICIO/MODLisa Voice ID: [id number] Report ID: [id number]
[2018-06-11] MEDS ORDERED: SODIUM CHLORIDE 1 GM TAB PO ONE (20:45)
[2018-06-12 04:22] LABS: Absolute Lymphocytes (CBC) 2.2 K/uL (0.7-4.9); Absolute Monocytes 1.1 K/uL (0.1-1.3); Absolute Neutrophil 3.2 K/uL (1.8-8.0); Basophils % 0.8 % (0-1.3); Eosinophils % 1.4 % (0-4.4); Hematocrit 35.9 % (36.0-45.0); Lymphocytes % 32.8 % (15.3-44.8); MCH 31.8 pg (27.0-35.0); MCV 90.8 fL (80-100); MPV 7.3 fL (7.6-11.3); RBC Red Blood Cell Count 3.96 M/uL (3.86-4.86)
[2018-06-12 04:26] LABS: Potassium 4.3 mmol/L (3.5-5.1)
[2018-06-12 04:27] LABS: Monocytes % 16.2 % (3.3-12.3)
[2018-06-12] MEDS: SOTALOL HCL 80 MG TAB PO SCH ×2 (05:54→16:19)
[2018-06-12] MEDS: LEVOTHYROXINE SOD 0.1 MG TAB PO SCH (05:54)
[2018-06-12] MEDS: PANTOPRAZOLE 40MG TABLET PO SCH (05:54)
[2018-06-12] MEDS: AMLODIPINE 5 MG TAB PO SCH (09:28)
--- NOTE | 2018-06-12 13:59 | P.PN ---
Subjective Date of Service: 06/12/18 Primary Care Provider: Magalie Shin NP; Cardiology-Dr. Dickson Chief Complaint: Abnormal lab Subjective: Improving Physical Examination - Vital Signs Temperature: 98.7 F Blood Pressure: 131/64 Pulse: 76 Respirations: 16 Pulse Ox (%): 96 - Physical Exam General: Alert, In no apparent distress, Oriented x3, Cooperative HEENT: Atraumatic Neck: Supple Respiratory: Clear to auscultation bilaterally, Normal air movement Cardiovascular: Normal pulses, Regular rate/rhythm Gastrointestinal: Normal bowel sounds, Soft and benign, Non-distended Musculoskeletal: No erythema, No tenderness, No warmth Integumentary: No tenderness/swelling, No erythema, No warmth, No cyanosis Neurological: Normal speech, Normal strength at 5/5 x4 extr, Normal tone, Normal affect - Studies Medications List Reviewed: Yes Assessment & Plan Discharge Plan: Home Plan to discharge in: 24 Hours Physician Review Additional Text: Impression: Chronic severe hyponatremia likely from medication Hypokalemia Atrial fibrillation on chronic anti coagulation therapy Hypertension Hypothyroidism GERD Plan: Chronic severe hyponatremia likely from medication: This is likely related to hydrochlorothiazide. Patient continues to improve. Sodium level improved. Hydrochlorothiazide has been discontinued. Patient off IV fluids and salt tablets. Continue to monitor closely. Encourage ambulation with physical therapy. Case discussed with nephrology. Anticipate discharge likely tomorrow. Hypokalemia: Will monitor and replace potassium. Replacement protocol in place. Atrial fibrillation on chronic anti coagulation therapy: Will continue with her medication. Will monitor closely. Patient on sotalol and Xarelto. Hypertension: Will continue with losartan. Will provide IV medication as needed. Hypothyroidism: Will continue with her medication. GERD: Will provide medication. Time Spent Managing Pts Care (In Minutes): 55
[2018-06-12] MEDS: RIVAROXABAN 20 MG TABLET PO SCH (16:19)
[2018-06-12 20:51] VITALS: BMI 20.1
[2018-06-13] MEDS: SOTALOL HCL 80 MG TAB PO SCH (05:55)
[2018-06-13] MEDS: LEVOTHYROXINE SOD 0.1 MG TAB PO SCH (05:56)
[2018-06-13] MEDS: PANTOPRAZOLE 40MG TABLET PO SCH (05:56)
[2018-06-13 06:50] LABS: Absolute Lymphocytes (CBC) 1.3 K/uL (0.7-4.9); Absolute Monocytes 0.6 K/uL (0.1-1.3); Absolute Neutrophil 2.8 K/uL (1.8-8.0); Basophils % 0.7 % (0-1.3); Eosinophils % 0.6 % (0-4.4); Hematocrit 36.6 % (36.0-45.0); MCH 31.4 pg (27.0-35.0); MCV 89.5 fL (80-100); MPV 7.1 fL (7.6-11.3); Monocytes % 12.4 % (3.3-12.3); RBC Red Blood Cell Count 4.09 M/uL (3.86-4.86)
[2018-06-13 07:05] LABS: Magnesium 2.1 mg/dL (1.8-2.4); Potassium 4.1 mmol/L (3.5-5.1)
[2018-06-13] MEDS: AMLODIPINE 5 MG TAB PO SCH (08:23)
[2018-06-13] MEDS ORDERED: AMLODIPINE 5 MG TAB PO ONE (11:51)
[2018-06-13 12:31] VITALS: O2SAT 98
--- NOTE | 2018-06-13 12:35 | P.DS ---
Admission Date: 06/10/18 Discharge Date: 06/13/18 Primary Care Provider: Magalie Shin NP; Cardiology-Dr. Dickson Disposition: ROUTINE DISCHARGE Discharge Condition: GOOD Reason for Admission: Abnormal lab Consultations: Nephrology-Dr. Brown Procedures: Medical Problem List: Chronic severe hyponatremia likely from medication Hypokalemia Atrial fibrillation on chronic anti coagulation therapy Hypertension Hypothyroidism GERD Brief History of Present Illness: 83-year-old female presented to emergency room after she had abnormal lab drawn yesterday. She was told to go to the ER due to low sodium. She reports that she was started on a new medication hydrochlorothiazide about 3 weeks ago by Cardiology. Since that time she has cut back on her salt intake. She has been increasing her fluid intake to about 3 L per day. Since that time she has been feeling weak and tired. No significant shortness of breath, chest pain noted. In the ER patient evaluated. Sodium at 117, potassium 3.0. BUN of 15, creatinine 0.9 with a GFR of 60. Glucose 113. Spot urine sodium 53, spot urine osmolalities 252. Serum osmolalities 256. Due to her hyponatremia patient was admitted for further evaluation. When I saw the patient ER, she appeared stable. She did not complain of any significant complaints. She did report recent start of hydrochlorothiazide. Patient with history of atrial fibrillation on chronic anti coagulation therapy , hypertension, hypothyroidism and GERD. Hospital Course: Patient presented with hyponatremia and hypokalemia likely from medication- hydrochlorothiazide. Patient was treated during the course of her stay. Her sodium level improved off medication. Patient was a seen and evaluated by nephrology. At discharge hydrochlorothiazide has been discontinued. Recommendation is to her follow up with nephrology within 1 week. Recheck BMP at that time is recommended. Patient has atrial fibrillation on chronic anti coagulation therapy. Patient will continue with her medications including sotalol 40 mg 1 pill twice daily and Xarelto 20 mg daily. Recommendation is for the patient follow up with cardiology as directed. Patient has hypertension. Medication adjusted during her stay. At discharge she will continue with Norvasc 10 mg daily. Valsartan has been discontinued due to recent pharmacy recall. At discharge valsartan will be changed over to losartan 100 mg daily. Recommendation is to maintain blood pressures less 150/ 80. Further adjustment can be done PCP or nephrology. Patient has hypothyroidism. Patient will continue with Synthroid 100 mcg daily. Patient has GERD. Patient will continue with Protonix 40 mg 1 pill once daily. Vital Signs/Physical Exam: Temp Pulse Resp BP Pulse Ox 98.5 F 88 16 171/81 H 96 06/13/18 12:00 06/13/18 12:11 06/13/18 12:00 06/13/18 12:11 06/13/18 12:00 General: Alert, In no apparent distress, Oriented x3, Cooperative HEENT: Atraumatic Neck: Supple Respiratory: Clear to auscultation bilaterally, Normal air movement Cardiovascular: Normal pulses, Regular rate/rhythm Gastrointestinal: Normal bowel sounds, Soft and benign, Non-distended, No tenderness, No masses, No rebound, No guarding Musculoskeletal: No erythema, No tenderness, No warmth Integumentary: No tenderness/swelling, No erythema, No warmth, No cyanosis Neurological: Normal speech, Normal strength at 5/5 x4 extr, Normal tone, Normal affect Laboratory Data at Discharge: WBC 4.8 K/uL (4.3-10.9) D 06/13/18 06:29 Hgb 12.8 g/dL (12.0-15.0) 06/13/18 06:29 Hct 36.6 % (36.0-45.0) 06/13/18 06:29 Plt Count 354 K/uL (152-406) 06/13/18 06:29 Sodium 130 mmol/L (136-145) L 06/13/18 06:29 Potassium 4.1 mmol/L (3.5-5.1) 06/13/18 06:29 BUN 11 mg/dL (7-18) 06/13/18 06:29 Creatinine 0.70 mg/dL (0.55-1.3) 06/13/18 06:29 Glucose 99 mg/dL (74-106) 06/13/18 06:29 Uric Acid 3.0 mg/dL (2.6-6.0) 06/11/18 04:36 Phosphorus 2.8 mg/dL (2.5-4.9) 06/11/18 04:36 Magnesium 2.1 mg/dL (1.8-2.4) 06/13/18 06:29 Home Medications: Amlodipine Besylate 10 mg PO DAILY 04/23/18 Levothyroxine [Synthroid*] 100 mcg PO DAILY 04/23/18 Multivit-Min/FA/Lycopen/Lutein [Complete Multivitamin Tab] 1 tab PO DAILY Pantoprazole [Protonix Tab*] 40 mg PO DAILY 04/23/18 Ubidecarenone/Vit E Acetate [Co Q-10 100 mg Softgel] 1 each PO DAILY 04/23/18 Vit B12/Lmefolate Ca/Vit B6/B2 [l-Methyl-Mc Tablet] 1 each PO DAILY 04/23/18 Vit D3/Folic Acid/B2/B6/B12 [Folgard Tablet] 1 tab PO DAILY 04/23/18 Rivaroxaban [Xarelto] 20 mg PO DAILY #30 tablet 04/25/18 Sotalol HCl [Betapace*] 40 mg PO BID 6AM 6PM #60 tab 04/25/18 Losartan Potassium 100 mg PO DAILY #30 tablet 06/13/18 New Medications: Losartan Potassium 100 mg PO DAILY #30 tablet Patient Discharge Instructions: 1. Patient will need to follow up with her PCP in 1 week to follow up this hospitalization. 2. Patient presented with hyponatremia and hypokalemia likely from medication-hydrochlorothiazide. Patient was treated during the course of her stay. Her sodium level improved off medication. Patient was a seen and evaluated by nephrology. At discharge hydrochlorothiazide has been discontinued. Recommendation is to her follow up with nephrology within 1 week. Recheck BMP at that time is recommended. 3. Patient has atrial fibrillation on chronic anti coagulation therapy. Patient will continue with her medications including sotalol 40 mg 1 pill twice daily and Xarelto 20 mg daily. Recommendation is for the patient follow up with cardiology as directed. 4. Patient has hypertension. Medication adjusted during her stay. At discharge she will continue with Norvasc 10 mg daily. Valsartan has been discontinued due to recent pharmacy recall. At discharge valsartan will be changed over to losartan 100 mg daily. Recommendation is to maintain blood pressures less 150/80. Further adjustment can be done PCP or nephrology. 5. Patient has hypothyroidism. Patient will continue with Synthroid 100 mcg daily. 6. Patient has GERD. Patient will continue with Protonix 40 mg 1 pill once daily. Diet: AHA Activity: Fall precautions Time spent managing pt's care (in minutes): 55
[2018-06-13 16:09] VITALS: BP 171/83; TEMP 99.1
--- NOTE | 2018-06-13 21:10 | P.PN ---
Date of Service: 06/12/18 Vital Signs Temp Pulse Resp BP Pulse Ox 99.1 F 106 H 16 171/83 H 96 06/13/18 16:00 06/13/18 16:00 06/13/18 16:00 06/13/18 16:00 06/13/18 16:00 Assessment/ Plan: Nephrology. Feeling better but still not at her baseline. CPS stable without CP or SOB. No Pain. No acute events overnght. Vitals, medications, blood work and imaging reviewed in the chart. General: In no apparent distress, Cooperative HEENT: Atraumatic, Mucous membr. moist/pink Neck: Supple Respiratory: Clear to auscultation bilaterally, Normal air movement Cardiovascular: No edema, Regular rate/rhythm, No rubs Gastrointestinal: Soft and benign, Non-distended, No guarding Musculoskeletal: No clubbing, No contractures Integumentary: No rashes, No cyanosis Neurological: Normal speech Laboratory Data (last 24 hrs) 06/10/18 10:42: Magnesium 2.0 D 06/10/18 10:42: Sodium 117 L*, Potassium 3.0 L, BUN 15, Creatinine 0.90, Glucose 113 H 06/10/18 10:42: WBC 7.5, Hgb 12.8, Hct 35.4 L, Plt Count 332 Conclusions/Impression: A/ Hyponatremia suspicious for polydipsia and complicated by HCTZ. Hypokalemia. HTN. Hypothyroidism, controlled. Dizziness in the setting of hyponatremia. P/ Continue current POC and Medications. Caution with excess free water. Sodium chloride tab prn. No HCTZ. AM labs. Daily weight.
--- NOTE | 2018-06-13 21:12 | P.PN ---
Date of Service: 06/13/18 Vital Signs Temp Pulse Resp BP Pulse Ox 99.1 F 106 H 16 171/83 H 96 06/13/18 16:00 06/13/18 16:00 06/13/18 16:00 06/13/18 16:00 06/13/18 16:00 Assessment/ Plan: Nephrology. Feeling much better today. Ready to go home. CPS stable without CP or SOB. No Pain. No acute events overnght. Vitals, medications, blood work and imaging reviewed in the chart. General: In no apparent distress, Cooperative HEENT: Atraumatic, Mucous membr. moist/pink Neck: Supple Respiratory: Clear to auscultation bilaterally, Normal air movement Cardiovascular: No edema, Regular rate/rhythm, No rubs Gastrointestinal: Soft and benign, Non-distended, No guarding Musculoskeletal: No clubbing, No contractures Integumentary: No rashes, No cyanosis Neurological: Normal speech Laboratory Data (last 24 hrs) 06/10/18 10:42: Magnesium 2.0 D 06/10/18 10:42: Sodium 117 L*, Potassium 3.0 L, BUN 15, Creatinine 0.90, Glucose 113 H 06/10/18 10:42: WBC 7.5, Hgb 12.8, Hct 35.4 L, Plt Count 332 Conclusions/Impression: A/ Hyponatremia suspicious for polydipsia and complicated by HCTZ. Hypokalemia. HTN. Hypothyroidism, controlled. Dizziness in the setting of hyponatremia. P/ Continue current POC and Medications. Counseled regarding excess free water. Sodium chloride tab prn. No HCTZ. AM labs. Daily weight. Case discussed with Dr. Nguyen
[2018-06-14] MEDS ORDERED: AMLODIPINE 10 MG TAB PO SCH (09:00)
== END 2018-06-13 16:40 | disposition home health service (06) | DRG 645 ==
LOC: ER 10:11 → ERHOLD 12:47 → 4TH 14:39 → ERHOLD 14:39 → 3RD-ICU 20:05 → 4TH 06-11 17:30
PROVIDERS: ADMIT Family Medicine; ATTEND Family Medicine
DX: E22.2 Syndrome of inappropriate secretion of antidiuretic hormone (principal); E87.6 Hypokalemia; I48.0 Paroxysmal atrial fibrillation; Z79.01 Long term (current) use of anticoagulants; I10 Essential (primary) hypertension; E03.9 Hypothyroidism, unspecified; K21.9 Gastro-esophageal reflux disease without esophagitis; Z88.0 Allergy status to penicillin; Z88.8 Allergy status to other drugs, medicaments and biological substances; R26.81 Unsteadiness on feet
CPT/HCPCS: 36415; 80048; 81001; 81003; 81015; 82570; 83735; 83930; 83935; 84100; 84300; 84439; 84443; 84550; 85025; 87086; 87088; 93005; 97116; 97162; 99285; J7030

== ENCOUNTER 2022-04-16 11:45 | Inpatient (IN) | payer OTHER ==
[2022-04-16] MEDS ORDERED: METOPROLOL TARTRATE 5 MG/5 ML INJ IV ONE (13:29)
[2022-04-16] MEDS ORDERED: NA CHLORIDE 0.9% 500 ML ONE (13:30)
[2022-04-16 13:45] LABS: Absolute Lymphocytes (CBC) 1.6 K/uL (0.7-4.9); Hematocrit 40.3 % (36.0-45.0); Lymphocytes % 28.2 % (15.3-44.8); RBC Red Blood Cell Count 4.33 M/uL (3.86-4.86)
[2022-04-16 14:50] LABS: Albumin 3.8 g/dL (3.4-5.0); Bilirubin Total 0.5 mg/dL (0.2-1.0); Magnesium 2.3 mg/dL (1.8-2.4); Potassium 3.5 mmol/L (3.5-5.1); Protein, Total 7.6 g/dL (6.4-8.2); Troponin High Sensitivity 6.3 pg/mL (<58.9)
[2022-04-16] MEDS ORDERED: dilTIAZem HCL 25 MG/5 ML VIAL IV ONE (16:10)
--- NOTE | 2022-04-16 19:04 | EDPHYS ---
Physician Documentation [facility] Name: Kimberly Simons Age: 87 yrs Sex: Female : 1935 Arrival Date: 04/16/2022 Time: 11:46 Bed 14 Private MD: CHAPINCITO Physician Maddie Diamond HPI: 04/16 12:52 This 87 yrs old Female presents to ER via Wheelchair with complaints of elevated heart sd2 rate-140s. 12:52 87-year-old female with a history of A. fib presents with chief complaint of sd2 tachycardia. She reports she was sent from her doctor's office today due to a heart rate in the 140s. She reports she did start feeling some fluttering in her chest around 1030 this morning just before she was seen by the doctor but she thought it was due to anxiety about seeing the doctor. She denies any associated chest pain or shortness of breath. She has been compliant with her sotalol and Xarelto and has already taken both this morning. She denies any fevers or recent illness. She has no acute complaints at this time.. Historical: - Allergies: 12:04 MARLENA INHIBITORS; vg1 12:04 Benadryl; vg1 12:04 bio freeze; vg1 12:04 Iodine; vg1 12:04 PENICILLINS; vg1 12:04 Prednisone; vg1 12:04 Streptomycin; vg1 12:04 THIAZIDES; vg1 12:04 Hydrochlorothiazide; vg1 12:04 menthol; vg1 - PMHx: 12:04 GERD; Hypertension; Hypothyroidism; Atrial fibrillation; vg1 - Immunization history:: Client reports having NOT received the Covid vaccine. - Social history:: Smoking status: Reported history of juuling and/or vaping. ROS: 12:52 Constitutional: Negative for fever, chills, and weight loss, Eyes: Negative for injury, sd2 pain, redness, and discharge. 12:52 Respiratory: Negative for shortness of breath, cough, wheezing. Abdomen/GI: Negative for abdominal pain, nausea, vomiting, diarrhea. MS/Extremity: Negative for injury and deformity, Skin: Negative for injury, rash, and discoloration, Neuro: Negative for headache, numbness and tingling. 12:52 Cardiovascular: Positive for palpitations, Negative for chest pain, edema, orthopnea. Exam: 12:52 Constitutional: This is a well developed, well nourished patient who is awake, alert, sd2 and in no acute distress. Head/Face: Normocephalic, atraumatic. Eyes: EOMI, normal conjunctiva bilaterally Chest/axilla: Normal chest wall appearance and motion. Nontender with no deformity. Cardiovascular: Irregularly irregular tachycardic rhythm with a normal S1 and S2. No gallops, murmurs, or rubs. 2+ distal pulses. Respiratory: Lungs have equal breath sounds bilaterally, clear to auscultation and percussion. No rales, rhonchi or wheezes noted. No increased work of breathing, no retractions or nasal flaring. Abdomen/GI: Soft, non-tender, with normal bowel sounds. No guarding or rebound. No evidence of tenderness throughout. Skin: Warm, dry with normal turgor. Normal color with no rashes, no lesions, and no evidence of cellulitis. MS/ Extremity: Pulses equal, no cyanosis. Neurovascular intact. Full, normal range of motion. Ambulatory without difficulty. Psych: Awake, alert, with orientation to person, place and time. Behavior, mood, and affect are within normal limits. Vital Signs: 12:01 BP 156 / 101; Pulse 143; Resp 22; Temp 98.2; Pulse Ox 100% on R/A; Weight 57.61 kg; vg1 Height 5 ft. 2 in. (157.48 cm); Pain 0/10; 14:03 BP 124 / 99; Pulse 123; Resp 18; Pulse Ox 96% on R/A; kr3 19:30 BP 128 / 80; Pulse 108; Resp 16 S; Pulse Ox 94% on R/A; Pain 0/10; aa9 19:45 BP 127 / 91; Pulse 100; Resp 18 S; Pulse Ox 96% on R/A; Pain 0/10; aa9 20:00 BP 120 / 90; Pulse 100; Resp 18 S; Pulse Ox 98% on R/A; Pain 0/10; aa9 20:15 BP 121 / 88; Pulse 101; Resp 19 S; Pulse Ox 97% on R/A; Pain 0/10; aa9 20:30 BP 126 / 87; Pulse 104; Resp 16; Pulse Ox 97% on R/A; Pain 0/10; aa9 21:00 BP 133 / 97; Pulse 105; Resp 16 S; Pulse Ox 98% ; Pain 0/10; aa9 12:01 Body Mass Index 23.23 (57.61 kg, 157.48 cm) vg1 MDM: 12:08 Patient medically screened. sd2 12:52 Differential Diagnosis Differential diagnosis includes but is not limited to: ACS, sd2 DVT/PE, pneumothorax, dissection, musculoskeletal, anxiety, anemia, electrolyte abnormality, pneumonia, CHF, COPD among others. Data reviewed: vital signs, nurses notes. 17:41 ED course: Case was discussed with Dr. Infante, Cardiology, recommends increasing dose sd2 of Sotalol to 80 mg and admitting for observation overnight with EKG after 3rd dose. Pt to be admitted to hospitalist at this time. . 19:03 Counseling: I had a detailed discussion with the patient and/or guardian regarding: the sd2 historical points, exam findings, and any diagnostic results supporting the discharge/admit diagnosis, lab results, radiology results, the need for further work-up and treatment in the hospital. 04/16 12:52 Order name: CBC with Diff; Complete Time: 13:58 sd2 04/16 12:52 Order name: CMP; Complete Time: 14:59 sd2 04/16 12:52 Order name: Magnesium; Complete Time: 14:59 sd2 04/16 12:52 Order name: Troponin High Sensitivity; Complete Time: 14:59 sd2 04/16 12:52 Order name: BNP; Complete Time: 14:59 sd2 04/16 19:25 Order name: SARS RAPID; Complete Time: 20:34 aa9 04/16 12:52 Order name: EKG - Nurse/Tech; Complete Time: 13:32 sd2 04/16 13:39 Order name: Labs - recollect needed: recollect green top; Complete Time: 14:03 bd Administered Medications: 13:46 Drug: NS 0.9% 500 ml Route: IV; Rate: bolus; Site: left antecubital; kr3 13:46 Drug: Metoprolol 2.5 mg Route: IVP; Site: left antecubital; kr3 14:14 Follow up: Response: No adverse reaction kr3 16:15 Drug: Cardizem (diltiazem) 10 mg Route: IVP; Site: left antecubital; kr3 19:24 Drug: Sotalol 80 mg Route: PO; aa9 Disposition Summary: 04/16/22 19:04 Hospitalization Ordered Hospitalization Status: Observation sd2 Provider: Riccardo Mcpherson2 Location: Telemetry/MedSurg (observation) sd2 Condition: Stable sd2 Problem: an acute exacerbation sd2 Symptoms: have improved sd2 Bed/Room Type: Standard sd2 Room Assignment: 408(04/16/22 20:16) cg Diagnosis - Paroxysmal atrial fibrillation sd2 Forms: - Medication Reconciliation Form sd2 - SBAR form sd2 Signatures: Dispatcher [employer] EDMS Jessy Montero Cindy RN TEJ cg Roxie Matthews RN RN [email or web address] Maddie Diamond MD MD sd2 Kati Vasquez RN RN aa9 Naty Gibbs RN RN kr3 Roma Alejandro, CEM PAJuan sb4 Corrections: (The following items were deleted from the chart) 20:16 19:04 sd2 cg
--- NOTE | 2022-04-16 19:04 | ER ---
Nurse's Notes [facility] Name: Kimberly Simons Age: 87 yrs Sex: Female : 1935 Arrival Date: 04/16/2022 Time: 11:46 Bed 14 Private MD: Diagnosis: Paroxysmal atrial fibrillation Presentation: 04/16 12:01 Chief complaint: Patient states: was in PCP office when noticed heart rate of 140; vg1 denies CP or SOB or headache. Coronavirus screen: Vaccine status: Patient reports being unvaccinated. Client denies travel out of the [place] in the last 14 days. Ebola Screen: Patient negative for fever greater than or equal to 101.5 degrees Fahrenheit, and additional compatible Ebola Virus Disease symptoms Patient denies exposure to infectious person. Initial Sepsis Screen: Does the patient meet any 2 criteria? RR > 20 per min. HR > 90 bpm. No. Patient's initial sepsis screen is negative. Does the patient have a suspected source of infection? No. Patient's initial sepsis screen is negative. Risk Assessment: Do you want to hurt yourself or someone else? Patient reports no desire to harm self or others. Onset of symptoms was April 16, 2022. 12:01 Method Of Arrival: Wheelchair vg1 12:01 Acuity: RUFUS 2 vg1 Triage Assessment: 12:04 General: Appears in no apparent distress. comfortable, Behavior is calm, cooperative. vg1 Pain: Denies pain. Neuro: Level of Consciousness is awake, alert, obeys commands, Oriented to person, place, time, situation, Denies headache. Cardiovascular: Patient's skin is warm and dry. GI: Patient currently denies nausea, vomiting. Historical: - Allergies: 12:04 MARLENA INHIBITORS; vg1 12:04 Benadryl; vg1 12:04 bio freeze; vg1 12:04 Iodine; vg1 12:04 PENICILLINS; vg1 12:04 Prednisone; vg1 12:04 Streptomycin; vg1 12:04 THIAZIDES; vg1 12:04 Hydrochlorothiazide; vg1 12:04 menthol; vg1 - PMHx: 12:04 GERD; Hypertension; Hypothyroidism; Atrial fibrillation; vg1 - Immunization history:: Client reports having NOT received the Covid vaccine. - Social history:: Smoking status: Reported history of juuling and/or vaping. Screenin:32 Abuse screen: Denies threats or abuse. Denies injuries from another. Nutritional ko1 screening: No deficits noted. Tuberculosis screening: No symptoms or risk factors identified. Fall Risk None identified. Assessment: 12:27 General: Appears in no apparent distress. comfortable, well groomed, Behavior is calm, kr3 cooperative, appropriate for age. Cardiovascular: Patient's skin is warm and dry. 14:04 Reassessment: No changes from previously documented assessment. Patient and/or family kr3 updated on plan of care and expected duration. Pain level reassessed. Patient is alert, oriented x 3, equal unlabored respirations, skin warm/dry/pink. 18:32 Reassessment: No changes from previously documented assessment. ko1 19:43 Reassessment: Patient appears in no apparent distress at this time. General: Appears aa9 comfortable, well groomed, Behavior is calm, cooperative, appropriate for age. General: pt daughter and son at bedside, pt denies any concerns at this time. Pain: Denies pain. Neuro: Level of Consciousness is awake, alert, obeys commands, Oriented to person, place, time, situation. Cardiovascular: Patient's skin is warm and dry. 20:43 General: attempted to call report. aa9 21:30 General: pt transported to room 408 via wheelchair with TEJ Burton. Son accompanied pt, aa9 pt and son aware of need for admit, both deny any concerns. pt stable, steady gait when ambulated to . IV site without redness or irritation. . Vital Signs: 12:01 BP 156 / 101; Pulse 143; Resp 22; Temp 98.2; Pulse Ox 100% on R/A; Weight 57.61 kg; vg1 Height 5 ft. 2 in. (157.48 cm); Pain 0/10; 14:03 BP 124 / 99; Pulse 123; Resp 18; Pulse Ox 96% on R/A; kr3 19:30 BP 128 / 80; Pulse 108; Resp 16 S; Pulse Ox 94% on R/A; Pain 0/10; aa9 19:45 BP 127 / 91; Pulse 100; Resp 18 S; Pulse Ox 96% on R/A; Pain 0/10; aa9 20:00 BP 120 / 90; Pulse 100; Resp 18 S; Pulse Ox 98% on R/A; Pain 0/10; aa9 20:15 BP 121 / 88; Pulse 101; Resp 19 S; Pulse Ox 97% on R/A; Pain 0/10; aa9 20:30 BP 126 / 87; Pulse 104; Resp 16; Pulse Ox 97% on R/A; Pain 0/10; aa9 21:00 BP 133 / 97; Pulse 105; Resp 16 S; Pulse Ox 98% ; Pain 0/10; aa9 12:01 Body Mass Index 23.23 (57.61 kg, 157.48 cm) vg1 ED Course: 11:46 Patient arrived in ED. as 12:04 Triage completed. vg1 12:04 Arm band placed on. vg1 12:08 Madide Diamond MD is Attending Physician. sd2 12:10 Bed in low position. Call light in reach. Side rails up X 1. kr3 12:24 Naty Gibbs RN is Primary Nurse. kr3 13:25 Inserted saline lock: 20 gauge in left antecubital area, using aseptic technique. Blood kr3 collected. 19:03 Riccardo Mcpherson is Hospitalizing Provider. sd2 20:25 No provider procedures requiring assistance completed. Patient admitted, IV remains in aa9 place. Administered Medications: 13:46 Drug: NS 0.9% 500 ml Route: IV; Rate: bolus; Site: left antecubital; kr3 13:46 Drug: Metoprolol 2.5 mg Route: IVP; Site: left antecubital; kr3 14:14 Follow up: Response: No adverse reaction kr3 16:15 Drug: Cardizem (diltiazem) 10 mg Route: IVP; Site: left antecubital; kr3 19:24 Drug: Sotalol 80 mg Route: PO; aa9 Medication: 21:10 VIS not applicable for this client. aa9 Outcome: 19:04 Decision to Hospitalize by Provider. sd2 21:10 Admitted to Tele accompanied by nurse, via wheelchair, room 408, with chart, Report aa9 called to receiving nurse 21:10 Condition: stable 21:10 Instructed on the need for admit. 21:34 Patient left the ED. aa9 Signatures: Lynsey Torres Victoria RN RN vg1 Maddie Diamond MD MD sd2 Kati Vasquez, RN RN aa9 Naty Gibbs, RN RN kr3 Lisa Adam, RN RN ko1
[2022-04-16] MEDS ORDERED: SOTALOL HCL 80 MG TAB ONE (19:19)
--- NOTE | 2022-04-16 19:57 | P.HP ---
Certification for Inpatient Patient admitted to: Observation With expected LOS: <2 Midnights Patient will require the following post-hospital care: None Practitioner: I am a practitioner with admitting privileges, knowledge of patient current condition, hospital course, and medical plan of care. Services: Services provided to patient in accordance with Admission requirements found in Title 42 Section 412.3 of the Code of Federal Regulations Patient History Date of Service: 04/16/22 Primary Care Provider: Magalie Conn Reason for admission: Afib RVR History of Present Illness: Patient is an 87-year-old female with history of A. fib on xarelto, hypothyroidism, and hypertension who presented to the ED with complaints of p alpitations. Patient reports that she went to see her PCP today and they noted that her heart rate was in the 140s and sent her to the ER. EKG here showed A. fib RVR. She was initially given 2.5 mg IV metoprolol without any improvement in rate. She was later given 10 mg IV Cardizem which converted her. She has no complaints of chest pain at this time. Her labs are unremarkable. Cardiology w as consulted and wishes for patient'sstarted on sotalol to be increased and for patient to be admitted for observation to hospitalist and will see patient morning. Allergies MARLENA Inhibitors Allergy (Verified 05/10/17 21:34) Anaphylaxis Penicillins Allergy (Verified 05/10/17 21:34) Hives camphor [From Biofreeze] Adverse Reaction (Verified 05/10/17 21:34) Hives diphenhydramine [From Benadryl] Adverse Reaction (Verified 05/10/17 21:34) Nausea/Vomiting hydrochlorothiazide Adverse Reaction (Verified 06/13/18 00:17) Anaphylaxis iodine Adverse Reaction (Verified 05/10/17 21:34) Hives menthol [From Biofreeze] Adverse Reaction (Verified 05/10/17 21:34) Hives prednisone Adverse Reaction (Verified 05/10/17 21:34) Hives streptomycin Adverse Reaction (Verified 05/10/17 21:34) Rash Thiazides Adverse Reaction (Verified 06/13/18 00:17) Anaphylaxis Home Medications: Amlodipine Besylate 10 mg PO DAILY 04/23/18 Pantoprazole [Protonix Tab*] 40 mg PO ACB 04/23/18 Sotalol HCl [Betapace*] 40 mg PO BID 6AM 6PM #60 tab 04/25/18 Losartan Potassium 100 mg PO DAILY #30 tablet 06/13/18 Bimatoprost [Lumigan Opthalmic Drops] 1 gtt EACH EYE BEDTIME 04/16/22 Levothyroxine [Synthroid] 88 mcg PO 2200 04/16/22 Rivaroxaban [Xarelto] 20 mg PO DAILY AT SUPPER 04/16/22 - Past Medical/Surgical History Diabetic: No -: Hypothyroidism -: HTN -: Atrial fibrillation on chronic anti coagulation therapy -: GERD -: Hysterectomy -: Vein stripping Psychosocial/ Personal History: The patient is a . She has 4 children. She does not work. - Family History Mother -: Heart disease, Cancer Father -: Stroke Brother -: Heart disease Sister -: Heart disease - Social History Smoking Status: Current every day smoker (vapes) Alcohol use: No CD- Drugs: No Caffeine use: Yes Place of Residence: Home Review of Systems 10-point ROS is otherwise unremarkable Cardiovascular: Palpitations Physical Examination - Physical Exam General: Alert, In no apparent distress HEENT: Atraumatic, PERRLA, EOMI, Sclerae nonicteric Neck: Supple, 2+ carotid pulse no bruit, No LAD, Without JVD or thyroid abnormality Respiratory: Clear to auscultation bilaterally, Normal air movement Cardiovascular: Irregular heart rate/rhythm Gastrointestinal: Normal bowel sounds, No tenderness Musculoskeletal: No tenderness Integumentary: No rashes Neurological: Normal speech, Normal strength at 5/5 x4 extr, Normal tone, Normal affect - Studies Laboratory Data (last 24 hrs) 04/16/22 14:00: Sodium 137, Potassium 3.5, BUN 13, Creatinine 0.80, Glucose 113 H, Magnesium 2.3, Total Bilirubin 0.5, AST 19, ALT 16, Alkaline Phosphatase 64 04/16/22 13:23: WBC 5.70, Hgb 13.5, Hct 40.3, Plt Count 310 Assessment and Plan - Problems (Diagnosis) (1) Afib Current Visit: Yes Status: Acute Qualifiers: Atrial fibrillation type: paroxysmal Qualified Code(s): I48.0 - Paroxysmal atrial fibrillation (2) Hypertension Current Visit: Yes Status: Chronic Qualifiers: Hypertension type: primary hypertension Qualified Code(s): I10 - Essential (primary) hypertension (3) Hypothyroidism Current Visit: Yes Status: Chronic Qualifiers: Hypothyroidism type: acquired Qualified Code(s): E03.9 - Hypothyroidism, unspecified - Plan -Patient is admitted for observation -Monitor on telemetry -Cardiology consult -Increase sotalol to 80 mg BID -Continue home Xarelto -Monitor and replete electrolytes per protocol -Reconcile and continue home medications -Full code Discharge Plan: Home Plan to discharge in: 24 Hours - Advance Directives Does patient have a Living Will: Yes Does patient have a Durable POA for Healthcare: Yes - Code Status/Comfort Care Code Status Assessed: Yes (Full) Critical Care: No Time Spent Managing Pts Care (In Minutes): 50
[2022-04-16 20:04] LABS: SARS-CoV-2 Antigen Rapid Res Negative (Negative)
[2022-04-16] MEDS ORDERED: ONDANSETRON 4 MG/2 ML VIAL IV PRN (21:10)
[2022-04-16] MEDS ORDERED: ACETAMINOPHEN 500 MG TAB PO PRN (21:10)
[2022-04-16] MEDS: RIVAROXABAN 10 MG TABLET PO SCH (21:54)
[2022-04-16 22:31] VITALS: BMI 22.3
[2022-04-17] MEDS: LEVOTHYROXINE SOD 0.088 MG TAB PO SCH ×2 (00:26→21:42)
[2022-04-17 03:14] LABS: Specific Gravity 1.011 (1.005-1.030); Urine Bilirubin NEGATIVE (Negative); Urine Blood Negative (Negative); Urine Clarity Clear (Clear); Urine Color Light-Yellow (Yellow); Urine Glucose NEGATIVE (Negative); Urine Protein NEGATIVE (Negative); Urine Urobilinogen Normal (Normal)
[2022-04-17 03:44] LABS: Absolute Lymphocytes (CBC) 2.1 K/uL (0.7-4.9); Hematocrit 37.2 % (36.0-45.0); Lymphocytes % 29.9 % (15.3-44.8); MPV 6.7 fL (7.6-11.3)
[2022-04-17 04:08] LABS: Magnesium 2.2 mg/dL (1.8-2.4); Phosphorus 3.3 mg/dL (2.5-4.9); Thyroid Stimulating Hormone 1.21 uIU/mL (0.360-3.740)
[2022-04-17] MEDS: SOTALOL HCL 80 MG TAB PO SCH ×2 (05:00→17:02)
[2022-04-17] MEDS: PANTOPRAZOLE 40MG TABLET PO SCH (07:30)
[2022-04-17] MEDS: AMLODIPINE 10 MG TAB PO SCH (09:11)
[2022-04-17] MEDS: LOSARTAN POTASSIUM 50 MG TABLET PO SCH (09:11)
--- NOTE | 2022-04-17 14:04 | EKG ---
Test Date: 2022-04-16 Test Time: 13:15:40 Non Licensed Nuclear Plant Operator: ELIN MEASUREMENT RESULTS: Intervals: Rate: 127 NV: QRSD: 82 QT: 314 QTc: 456 [place]: P: NV: QRS: -37 T: 160 INTERPRETIVE STATEMENTS: Accelerated Junctional rhythm Left axis deviation Nonspecific ST and T wave abnormality Abnormal ECG Compared to ECG 06/10/2018 10:59:16 Accelerated junctional rhythm now present Sinus rhythm no longer present Atrial premature complex(es) no longer present Possible ischemia no longer present Prolonged QT interval no longer present ST (T wave) deviation still present Electronically Signed On 04-17-22 14:01:53 CDT by Leno Infante
--- NOTE | 2022-04-17 16:33 | P.PN ---
Subjective Date of Service: 04/17/22 Primary Care Provider: Magalie Conn Chief Complaint: Afib RVR Patient has no new complain. She denies palpitation. Heart rate improved. Physical Examination - Vital Signs Temperature: 96.9 F Blood Pressure: 135/89 Pulse: 103 Respirations: 20 Pulse Ox (%): 99 Assessment And Plan - Current Problems (Diagnosis) (1) Afib Current Visit: Yes Status: Acute Qualifiers: Atrial fibrillation type: paroxysmal Qualified Code(s): I48.0 - Paroxysmal atrial fibrillation (2) Hypertension Current Visit: Yes Status: Chronic Qualifiers: Hypertension type: primary hypertension Qualified Code(s): I10 - Essential (primary) hypertension (3) Hypothyroidism Current Visit: Yes Status: Chronic Qualifiers: Hypothyroidism type: acquired Qualified Code(s): E03.9 - Hypothyroidism, unspecified (4) Palpitations Onset Date: 05/14/17 Current Visit: No Status: Acute - Plan Heart rate improved. Cardiology input appreciated. Check EKG after third dose of sotalol. Continue Xarelto. Monitor and optimize electrolytes.
[2022-04-17] MEDS: RIVAROXABAN 10 MG TABLET PO SCH (17:02)
--- NOTE | 2022-04-17 21:34 | CON ---
Date of Consultation: 04/17/2022 Reason For Consultation: Atrial fibrillation with rapid ventricular response. History Of Present Illness: This is an 87-year-old female with history of atrial fibrillation on Xar elto, hypertension, and hypothyroidism who presented with palpitations. She was in AFib with RVR. S he was given metoprolol and heart rate went down after Cardizem was given. The patient has no chest pain or shortness of breath and no other complaints. Past Medical History: As outlined above in the HPI. Medications: Refer to reconciliation sheet for detailed list. Allergies: MARLENA INHIBITOR, PENICILLIN, DIPHENHYDRAMINE, HYDROCHLOROTHIAZIDE, IODINE, AND STREPTOMYCIN . Family History: No premature coronary disease or cancer. Social History: Does not smoke or drink. Does not use any drugs. Review of Systems: All systems reviewed and they are negative except for what is mentioned in the HPI. Physical Examination: Vital Signs: Reviewed. Head and Neck: Pupils are equal and reactive to light. Intact eye movements. No JVD. No cervical lymphadenopathy. Neck: Supple. Thyroid is not enlarged. Lungs: Clear to auscultation bilaterally. No rhonchi, wheezing, or crackles. No accessory muscle u se. Heart: Irregularly irregular. No extra sounds. Abdomen: Soft, nontender. Bowel sounds positive. No organomegaly. No masses or hernia. No rigidi ty or rebound. Extremities: No clubbing or cyanosis. Intact pulses. Skin: No rash. Neurologic: Alert, awake, and oriented x3. No acute focal deficits appreciated. Lymph Nodes: No cervical or axillary lymphadenopathy. Investigations: Her BUN is 11, creatinine 0.75. Hemoglobin 12.5. Assessment And Recommendation: 1.Atrial fibrillation with rapid ventricular response. Sotalol was initiated at 80 mg twice a day. Heart rate is down. After third dose, check an EKG and if QTc interval is normal, the patient jens galarza could be released to follow up as an outpatient. Continue Xarelto and I will plan to see her in the office in 2-3 weeks. If she continues to be in atrial fibrillation, I will plan for cardiover maksim. 2.Chronic diastolic heart failure. She seems to be euvolemic. Continue to monitor. Continue home medications. 3.Hypertension. Blood pressure is controlled. SR/MODL Voice ID: [id number] Report ID: [id number]
[2022-04-18 03:47] LABS: Absolute Lymphocytes (CBC) 2.5 K/uL (0.7-4.9); Hematocrit 37.3 % (36.0-45.0); Lymphocytes % 39.6 % (15.3-44.8); MCV 93.1 fL (80-100); MPV 6.9 fL (7.6-11.3); RBC Red Blood Cell Count 4.01 M/uL (3.86-4.86)
[2022-04-18 03:55] LABS: Potassium 3.6 mmol/L (3.5-5.1)
[2022-04-18] MEDS: SOTALOL HCL 80 MG TAB PO SCH ×2 (05:54→17:54)
[2022-04-18] MEDS ORDERED: POTASSIUM CL SA 10 MEQ TAB PO ONE (06:00)
[2022-04-18] MEDS: PANTOPRAZOLE 40MG TABLET PO SCH (07:30)
[2022-04-18] MEDS: LOSARTAN POTASSIUM 50 MG TABLET PO SCH (08:32)
[2022-04-18] MEDS: AMLODIPINE 10 MG TAB PO SCH (08:32)
--- NOTE | 2022-04-18 14:34 | P.PN ---
Subjective Date of Service: 04/18/22 Primary Care Provider: Magalie Conn Chief Complaint: Afib RVR Patient has no new complain. She denies palpitation. Physical Examination - Vital Signs Temperature: 97.5 F Blood Pressure: 131/75 Pulse: 95 Respirations: 16 Pulse Ox (%): 96 Assessment And Plan - Current Problems (Diagnosis) (1) Afib Current Visit: Yes Status: Acute Qualifiers: Atrial fibrillation type: paroxysmal Qualified Code(s): I48.0 - Paroxysmal atrial fibrillation (2) Hypertension Current Visit: Yes Status: Chronic Qualifiers: Hypertension type: primary hypertension Qualified Code(s): I10 - Essential (primary) hypertension (3) Hypothyroidism Current Visit: Yes Status: Chronic Qualifiers: Hypothyroidism type: acquired Qualified Code(s): E03.9 - Hypothyroidism, unspecified (4) Palpitations Onset Date: 05/14/17 Current Visit: No Status: Acute - Plan Heart rate improved. Patient seen by cardiology. EKG shows prolonged QT(QTC 555). Case discussed with cardiology Dr. Infante who recommend to reduce sotalol dose back to 40 mg twice daily and to add Cardizem. Continue telemetry Continue Xarelto. Monitor and optimize electrolytes.
--- NOTE | 2022-04-18 14:52 | PN ---
Date of Progress Note: 04/18/2022 Subjective: Seen by bedside. Doing well. Heart rate is better, however, QTc interval was elevated. Review of Systems: No chest pain, shortness of breath, orthopnea, cough. No nausea, vomiting, diarrhea. All other syst ems reviewed and they were negative. Physical Examination: Vital Signs: Reviewed. Head and Neck: Pupils are equal, reactive to light. Intact eye movements. No JVD. No cervical lym phadenopathy. Neck is supple. Thyroid is not enlarged. Lungs: Clear to auscultation bilaterally. No rhonchi, wheezing, or crackles. No accessory muscle u se. Heart: Irregularly irregular. No extra sounds. Abdomen: Soft, nontender. Bowel sounds positive. No organomegaly. No masses or hernia. No rigidi ty or rebound. Extremities: No clubbing or cyanosis. Intact pulses. Skin: No rash. Neurologic: Alert, awake, oriented x3. No acute focal deficits appreciated. Investigations: BUN is 18, creatinine 0.8, hemoglobin is 12.4. Assessment And Recommendations: 1.Atrial fibrillation, it is still rapid, and on sotalol 80. Unfortunately, her QTc interval increa sed to above 500, so decrease the sotalol back to 40 mg twice a day and add Cardizem CD 120 mg daily for better rate control and discontinue the amlodipine and continue Xarelto for anticoagulation. 2.Hypertension. Blood pressure is controlled. Continue home medications. SR/MODL Voice ID: [id number] Report ID: [id number]
[2022-04-18] MEDS: DILTIAZEM HCL 120 MG SR CAP PO SCH (15:59)
--- NOTE | 2022-04-18 16:33 | EKG ---
Test Date: 2022-04-18 Test Time: 08:05:52 Acoustical Logging Engineer: DEANN MEASUREMENT RESULTS: Intervals: Rate: 105 [place]: QRSD: 86 QT: 420 QTc: 555 [place]: P: [place]: QRS: -38 T: 191 INTERPRETIVE STATEMENTS: Atrial fibrillation with rapid ventricular response with premature ventricular or aberrantly conducted complexes Left axis deviation Anterior infarct, age undetermined Abnormal ECG Compared to ECG 04/17/2022 17:53:31 Myocardial infarct finding now present Sinus tachycardia no longer present ST (T wave) deviation no longer present Electronically Signed On 04-18-22 16:32:42 CDT by Leno Infante
--- NOTE | 2022-04-18 16:34 | EKG ---
Test Date: 2022-04-17 Test Time: 17:53:31 Ophthalmic Aide: RADHA MEASUREMENT RESULTS: Intervals: Rate: 111 [place]: 192 QRSD: 80 QT: 370 QTc: 503 [place]: P: [place]: 192 QRS: -39 T: -81 INTERPRETIVE STATEMENTS: Afib with RVR Left axis deviation Nonspecific ST and T wave abnormality Abnormal ECG Compared to ECG 04/17/2022 17:51:37 ST (T wave) deviation still present Electronically Signed On 04-18-22 16:33:15 CDT by Leno Infante
--- NOTE | 2022-04-18 16:34 | EKG ---
Test Date: 2022-04-17 Test Time: 17:51:37 Utility Worker Driver: RADHA MEASUREMENT RESULTS: Intervals: Rate: 115 [place]: QRSD: 86 QT: 368 QTc: 509 [place]: P: [place]: QRS: -37 T: 239 INTERPRETIVE STATEMENTS: Atrial fibrillation with rapid ventricular response with premature ventricular or aberrantly conducted complexes Left axis deviation Nonspecific ST and T wave abnormality, probably digitalis effect Abnormal ECG Compared to ECG 04/16/2022 13:15:40 Ventricular premature complex(es) now present Accelerated junctional rhythm no longer present ST (T wave) deviation still present Electronically Signed On 04-18-22 16:33:20 CDT by Leno Infante
[2022-04-18] MEDS: RIVAROXABAN 10 MG TABLET PO SCH (17:54)
[2022-04-18] MEDS: LEVOTHYROXINE SOD 0.088 MG TAB PO SCH (21:36)
[2022-04-19 00:31] VITALS: O2SAT 99
[2022-04-19] MEDS: SOTALOL HCL 80 MG TAB PO SCH (05:49)
[2022-04-19 06:31] LABS: Potassium 3.8 mmol/L (3.5-5.1)
[2022-04-19] MEDS: LOSARTAN POTASSIUM 50 MG TABLET PO SCH (08:36)
[2022-04-19] MEDS: DILTIAZEM HCL 120 MG SR CAP PO SCH (08:36)
[2022-04-19] MEDS: PANTOPRAZOLE 40MG TABLET PO SCH (08:36)
[2022-04-19] MEDS ORDERED: POTASSIUM CL SA 10 MEQ TAB PO ONE (09:00)
--- NOTE | 2022-04-19 10:53 | P.DS ---
Admission Date: 04/17/22 Discharge Date: 04/19/22 Primary Care Provider: Magalie Conn Disposition: ROUTINE DISCHARGE Discharge Condition: FAIR Reason for Admission: Afib RVR - Problems (1) Afib Current Visit: Yes Status: Acute Qualifiers: Atrial fibrillation type: paroxysmal Qualified Code(s): I48.0 - Paroxysmal atrial fibrillation (2) Hypertension Current Visit: Yes Status: Chronic Qualifiers: Hypertension type: primary hypertension Qualified Code(s): I10 - Essential (primary) hypertension (3) Hypothyroidism Current Visit: Yes Status: Chronic Qualifiers: Hypothyroidism type: acquired Qualified Code(s): E03.9 - Hypothyroidism, unspecified (4) Palpitations Onset Date: 05/14/17 Current Visit: No Status: Acute Brief History of Present Illness: Patient is an 87-year-old female with history of A. fib on xarelto, hypothyroidism, and hypertension who presented to the ED with complaints of palpitations. Patient reported that she went to see her PCP and they noted that her heart rate was in the 140s and sent her to the ER. EKG here showed A. fib RVR. She was initially given 2.5 mg IV metoprolol without any improvement in rate. She was later given 10 mg IV Cardizem which converted her. Her labs were unremarkable. Cardiology was consulted and who recommended patient's sotalol to be increased and hospitalization for monitoring. Hospital Course: Patient admitted to the medical floor, her sotalol dose was increased from 40 mg twice daily to 80 mg twice daily. Patient seen in consultation by cardiology-Dr. Infante. Her heart rate improved with the increase in sotalol but prolonged her QT. Dr. Infante recommended to reduce her sotalol dose back to 40 mg twice daily, Cardizem CD added to control her heart rate. Amlodipine for hypertension was replaced by the Cardizem CD. QTc interval improved after reducing her sotalol dose. Patient has clinically improved. She has been asymptomatic, clinically stable for discharge. Vital Signs/Physical Exam: Temp Pulse Resp BP Pulse Ox 97.6 F 93 H 14 129/66 97 04/19/22 08:00 04/19/22 08:36 04/19/22 08:00 04/19/22 08:36 04/19/22 08:00 General: Alert, In no apparent distress, Oriented x3 HEENT: Mucous membr. moist/pink Neck: JVD not distended Respiratory: Clear to auscultation bilaterally, Normal air movement Cardiovascular: No edema, Normal S1 S2, Irregular heart rate/rhythm Gastrointestinal: Soft and benign, Non-distended Musculoskeletal: No swelling Integumentary: No cyanosis Neurological: Normal strength at 5/5 x4 extr Laboratory Data at Discharge: WBC 6.30 K/uL (4.3-10.9) 04/18/22 03:25 Hgb 12.4 g/dL (12.0-15.0) 04/18/22 03:25 Hct 37.3 % (36.0-45.0) 04/18/22 03:25 Plt Count 278 K/uL (152-406) 04/18/22 03:25 Sodium 138 mmol/L (136-145) 04/19/22 05:47 Potassium 3.8 mmol/L (3.5-5.1) 04/19/22 05:47 BUN 15 mg/dL (7-18) 04/19/22 05:47 Creatinine 0.78 mg/dL (0.55-1.3) 04/19/22 05:47 Glucose 104 mg/dL (74-106) 04/19/22 05:47 Phosphorus 3.3 mg/dL (2.5-4.9) 04/17/22 03:25 Magnesium 2.2 mg/dL (1.8-2.4) 04/17/22 03:25 Total Bilirubin 0.5 mg/dL (0.2-1.0) 04/16/22 14:00 AST 19 U/L (15-37) 04/16/22 14:00 ALT 16 U/L (12-78) 04/16/22 14:00 Alkaline Phosphatase 64 U/L (45-117) 04/16/22 14:00 Triglycerides 164 mg/dL (<150) H 04/17/22 03:25 Cholesterol 175 mg/dL (<200) 04/17/22 03:25 HDL Cholesterol 62 mg/dL (40-60) H 04/17/22 03:25 Cholesterol/HDL Ratio 2.82 04/17/22 03:25 Home Medications: Pantoprazole [Protonix Tab*] 40 mg PO ACB 04/23/18 Sotalol HCl [Betapace*] 40 mg PO BID 6AM 6PM #60 tab 04/25/18 Losartan Potassium 100 mg PO DAILY #30 tablet 06/13/18 Bimatoprost [Lumigan Opthalmic Drops*] 1 gtt EACH EYE BEDTIME 04/16/22 Levothyroxine [Synthroid*] 88 mcg PO 2200 04/16/22 Rivaroxaban [Xarelto] 20 mg PO DAILY AT SUPPER 04/16/22 Diltiazem Cd [Cardizem Cd*] 120 mg PO DAILY #30 cap 04/19/22 New Medications: Diltiazem Cd [Cardizem Cd*] 120 mg PO DAILY #30 cap Physician Discharge Instructions: PROBLEM: (list out Acute Problems for the Current visit) Afib rvr GOAL: Clear understanding of disease process INSTRUCTIONS: Follow up with PCP in 1 to 2 weeks Follow up with cardiology in 1 to 2 weeks Diet: AHA Activity: Fall precautions Diet: AHA Activity: Fall precautions Followup: Magalie Vegas PAC [Primary Care Provider] - Leno Infante MD [ACTIVE - CAN ADMIT] - 1 Week
[2022-04-19 14:05] VITALS: BP 138/85; TEMP 97.9
--- NOTE | 2022-04-19 16:14 | EKG ---
Test Date: 2022-04-19 Test Time: 10:04:50 State Game Protector: DEANN MEASUREMENT RESULTS: Intervals: Rate: 97 [place]: QRSD: 84 QT: 398 QTc: 505 [place]: P: [place]: QRS: -34 T: 200 INTERPRETIVE STATEMENTS: Atrial flutter with variable AV block Left axis deviation Anterior infarct, age undetermined Abnormal ECG Compared to ECG 04/18/2022 08:05:52 Atrial fibrillation no longer present Ventricular premature complex(es) no longer present Myocardial infarct finding still present Electronically Signed On 04-19-22 16:13:22 CDT by Leno Infante
[2022-04-19] MEDS ORDERED: RIVAROXABAN 20 MG TABLET PO SCH (17:00)
--- NOTE | 2022-04-19 22:57 | PN ---
Date of Progress Note: 04/19/2022 Subjective: Seen at bedside, doing very well. QTc interval has decreased close to 500 from 555 afte r dropping the sotalol dose. Does not have any chest pain or shortness of breath. Heart rate is con trolled. Review of Systems: No chest pain, shortness of breath, orthopnea, cough, nausea, vomiting, or diarrhea. All other syste ms reviewed and are negative. Physical Examination: Vital Signs: Reviewed. Temperature is 97.6, heart rate is 93, breathing at 14, blood pressure 129/6 6, saturating 97% on room air. General: A pleasant elderly female, in no apparent distress. Head And Neck: Pupils are equal and reactive to light. Intact eye movements. No JVD. No cyanosis. Neck: Supple. Thyroid is not enlarged. Lungs: Clear to auscultation bilaterally. No rhonchi, wheezing, or crackles. No accessory muscle u se. Heart: Irregularly irregular. No extra sounds. Abdomen: Soft, nontender. Bowel sounds positive. No organomegaly. No masses or hernia. No rigidi ty or rebound. Extremities: No edema, clubbing, or cyanosis. Intact pulses. Skin: No rash. Neuro: Alert, awake, and oriented x3. No acute focal deficits appreciated. Investigations: BUN 15, creatinine 0.78. Hemoglobin is 12.4. Assessment And Recommendations: 1.Atrial fibrillation with rapid ventricular response, rate is controlled now after adding Cardizem and sotalol. Continue current management. 2.Prolonged QTc interval due to sotalol. Dose was decreased and now QTc interval is improving appro aching normal limits. From Cardiology standpoint, patient can be released and follow up with me as an outpatient in 2 weeks. SR/MODL Voice ID: [id number] Report ID: [id number]
== END 2022-04-19 14:55 | disposition home health service (06) | DRG 309 ==
LOC: ER 11:45 → ERHOLD 19:50 → 4TH 21:09 → OBSVTOIN 04-17 19:28
PROVIDERS: ADMIT Internal Medicine; ATTEND Internal Medicine
DX: I48.0 Paroxysmal atrial fibrillation (principal); I50.32 Chronic diastolic (congestive) heart failure; I11.0 Hypertensive heart disease with heart failure; E03.9 Hypothyroidism, unspecified; K21.9 Gastro-esophageal reflux disease without esophagitis; F17.290 Nicotine dependence, other tobacco product, uncomplicated; T44.7X5A Adverse effect of beta-adrenoreceptor antagonists, initial encounter; R94.31 Abnormal electrocardiogram [ECG] [EKG]; Z88.8 Allergy status to other drugs, medicaments and biological substances; Z88.1 Allergy status to other antibiotic agents; Z88.0 Allergy status to penicillin; Z79.01 Long term (current) use of anticoagulants; Z28.310 Unvaccinated for COVID-19; Z79.899 Other long term (current) drug therapy; Z91.018 Allergy to other foods; Z91.048 Other nonmedicinal substance allergy status; Z79.890 Hormone replacement therapy; Z90.710 Acquired absence of both cervix and uterus; Z20.822 Contact with and (suspected) exposure to COVID-19
CPT/HCPCS: 36415; 80048; 80053; 80061; 81003; 83735; 83880; 84100; 84443; 84484; 85025; 87811; 93005; 96374; 96375; 99285; G0378; J7040

== ENCOUNTER 2022-05-03 06:30 | Day surgery (SDC) | payer OTHER ==
[2022-05-03] MEDS ORDERED: MIDAZOLAM HCL 15 ML ONE (06:43)
[2022-05-03] MEDS ORDERED: METOPROLOL TARTRATE 5 MG/5 ML INJ IV ONE (06:43)
[2022-05-03] MEDS ORDERED: ATROPINE SULF 1 MG/10 ML SYR IV ONE (06:44)
[2022-05-03] MEDS ORDERED: FLUMAZENIL 0.1 MG/ML (5 mL VIAL) IV ONE (06:44)
[2022-05-03] MEDS ORDERED: NA CHLORIDE 0.9% 500 ML ONE (07:15)
[2022-05-03 09:17] VITALS: BP 124/68; TEMP 97.8; O2SAT 98
--- NOTE | 2022-05-04 21:51 | OP ---
Date of Procedure: 05/03/2022 Surgeon: Sherwin Benavides MD Police Or Patrol Park Officer: Brittni Bartholomew. Procedure Performed: Direct current cardioversion. Indication: Recurrent atrial fibrillation symptoms. History Of Present Illness: Ms. Simons is 87. Has had paroxysmal atrial fibrillation. Recently desp ite the use of sotalol 80 b.i.d., she continues to be in atrial fibrillation with shortness of breath on exertion. Description Of Procedure: She was brought to the recovery room as an inpatient in the hospital on . She received 5 mg of Versed IV push for total sedation. She received 3 shocks at 200, 300 , and 360 joules and failed to convert from atrial fibrillation. She continued to be in atrial fibri llation. The patient tolerated the procedure well. There were no complication or blood loss. Final Impression: Unsuccessful cardioversion from atrial fibrillation. Patient remains in atrial fi brillation, rate controlled. We will continue sotalol. She can go home after she wakes up. The dariusz e was discussed with her family. I will see her in a few days. Depending on her symptoms, we can ei ther continue anticoagulation or switch to beta-homero or switch to amiodarone or consider AV ignacio ablation and a pacemaker. For now, we will continue the present regimen. ZEYNEP/FAITH Voice ID: [id number] Report ID: [id number]
== END 2022-05-03 09:10 | disposition home or self-care (01) ==
LOC: CCL 06:30
DX: I48.0 Paroxysmal atrial fibrillation (principal); I35.1 Nonrheumatic aortic (valve) insufficiency; I34.0 Nonrheumatic mitral (valve) insufficiency; I10 Essential (primary) hypertension; E78.2 Mixed hyperlipidemia; K21.9 Gastro-esophageal reflux disease without esophagitis; E03.9 Hypothyroidism, unspecified; Z79.01 Long term (current) use of anticoagulants; Z88.0 Allergy status to penicillin; Z88.8 Allergy status to other drugs, medicaments and biological substances
CPT/HCPCS: 92960; J2250; J7040

== ENCOUNTER 2022-05-30 06:30 | Day surgery (SDC) | payer OTHER ==
[2022-05-30] MEDS ORDERED: NA CHLORIDE 0.9% 500 ML ONE (06:43)
[2022-05-30] MEDS ORDERED: MIDAZOLAM HCL 5 ML ONE (06:53)
[2022-05-30] MEDS ORDERED: METOPROLOL TARTRATE 5 MG/5 ML INJ IV ONE (06:53)
[2022-05-30] MEDS ORDERED: ATROPINE SULF 1 MG/10 ML SYR IV ONE (06:53)
[2022-05-30 06:59] VITALS: TEMP 97
[2022-05-30 07:10] LABS: Absolute Lymphocytes (CBC) 1.2 K/uL (0.7-4.9); Hematocrit 39.7 % (36.0-45.0); Lymphocytes % 11.5 % (15.3-44.8); MCV 92.9 fL (80-100); RBC Red Blood Cell Count 4.27 M/uL (3.86-4.86)
[2022-05-30] MEDS ORDERED: FENTANYL CITR 100 MCG/2 ML ONE (07:10)
[2022-05-30 07:22] LABS: Potassium 3.1 mmol/L (3.5-5.1)
[2022-05-30 07:39] LABS: Protime INR 1.94
[2022-05-30] MEDS ORDERED: FLUMAZENIL 0.1 MG/ML (5 mL VIAL) IV ONE (07:47)
[2022-05-30 09:41] VITALS: BP 122/52; O2SAT 100
--- NOTE | 2022-05-31 13:24 | EKG ---
Test Date: 2022-05-30 Test Time: 08:09:00 Air Traffic Instructor: DEANN MEASUREMENT RESULTS: Intervals: Rate: 78 [place]: QRSD: 100 QT: 400 QTc: 456 [place]: P: [place]: QRS: -35 T: 195 INTERPRETIVE STATEMENTS: Atrial fibrillation Left axis deviation Anterior infarct, age undetermined ST & T wave abnormality, consider lateral ischemia or digitalis effect Abnormal ECG Compared to ECG 04/19/2022 10:04:50 ST (T wave) deviation now present Possible ischemia now present Atrial flutter no longer present Myocardial infarct finding still present Electronically Signed On 05-31-22 13:22:41 SAFETY ANALYST by Leno Infante
--- NOTE | 2022-06-02 18:54 | OP ---
Surgeon: Sherwin Benavides MD Coating Technician: Ms. Cristiana Matthews. Reason For Admission: Direct current cardioversion. Indication: Persistent atrial fibrillation despite amiodarone therapy and previous cardioversion. S he was also taking sotalol at one point. Procedure In Detail: In the earthmoving labourer, she received 7 mg of Versed for total sedation. She received 3 shocks at 200, 300, and then finally 360 joules and she converted to sinus rhythm. There were no c omplications or blood loss. Anesthesia: Total conscious sedation was 30 minutes. Disposition: The patient will go home when she is awake. Plan: She will go home on amiodarone 200 b.i.d. and Xarelto. If she goes back into atrial fibrillat ion, I will set her up for AV ignacio ablation and a pacemaker in [place]. Case was discussed with the family in detail. Final Diagnosis: Successful cardioversion from atrial fibrillation to sinus rhythm, status post shoc k with 300, 200, and 360 joules. ZEYNEP/MODL Voice ID: [id number] Report ID: [id number]
== END 2022-05-30 09:42 | disposition home or self-care (01) ==
LOC: CCL 06:30
PROC: 5A2204Z Restoration of Cardiac Rhythm, Single (ICD-10-PCS; principal; 2022-05-30)
DX: I48.19 Other persistent atrial fibrillation (principal); I10 Essential (primary) hypertension; E78.2 Mixed hyperlipidemia; I34.0 Nonrheumatic mitral (valve) insufficiency; I35.1 Nonrheumatic aortic (valve) insufficiency; K21.9 Gastro-esophageal reflux disease without esophagitis; E03.9 Hypothyroidism, unspecified; Z79.899 Other long term (current) drug therapy
CPT/HCPCS: 93005; 85025; 80048; 36415; 85610; 85730; 92960; J2250; J7040; J0461; J3010

== ENCOUNTER 2023-04-18 10:08 | Inpatient (IN) | payer OTHER ==
[2023-04-18] MEDS ORDERED: ASPIRIN 81 MG CHEWABLE TABLET ONE (10:34)
[2023-04-18] MEDS ORDERED: NA CHLORIDE 0.9% 1,000 ML ONE (10:34)
[2023-04-18 10:36] LABS: Specific Gravity 1.011 (1.005-1.030); Urine Bilirubin NEGATIVE (Negative); Urine Blood Negative (Negative); Urine Clarity Clear (Clear); Urine Color Colorless (Yellow); Urine Glucose NEGATIVE (Negative); Urine Protein NEGATIVE (Negative); Urine Urobilinogen Normal (Normal)
[2023-04-18 10:43] LABS: Absolute Lymphocytes (CBC) 1.5 K/uL (0.7-4.9); Hematocrit 35.9 % (36.0-45.0); Lymphocytes % 26.6 % (15.3-44.8); MCV 81.7 fL (80-100); MPV 6.6 fL (7.6-11.3); Platelets 356 thou/uL (152-406); RBC Red Blood Cell Count 4.39 M/uL (3.86-4.86)
[2023-04-18 10:44] LABS: Protime INR 1.48
[2023-04-18 11:02] LABS: Albumin 3.8 g/dL (3.4-5.0); Bilirubin Direct 0.2 mg/dL (0-0.2); Bilirubin Indirect, Calculated 0.6 mg/dL (0.2-0.8); Bilirubin Total 0.8 mg/dL (0.2-1.0); Magnesium 2.4 mg/dL (1.6-2.4); Potassium 3.7 mEq/L (3.5-5.1); Protein, Total 7.9 g/dL (6.4-8.2); Troponin High Sensitivity 13.9 pg/mL (<58.9)
--- NOTE | 2023-04-18 11:21 | RAD REPORT ---
EXAM DESCRIPTION: Rafal Single View04/18/2023 10:57 am CLINICAL HISTORY: Chest pain COMPARISON: 2018 FINDINGS: Pulmonary vascular congestion is present Lungs appear clear of acute infiltrate. Heart is mildly enlarged. Pacemaker leads place
[2023-04-18] MEDS ORDERED: AMLODIPINE 5 MG TAB ONE (12:33)
--- NOTE | 2023-04-18 12:38 | RAD REPORT ---
EXAM DESCRIPTION: CT - Head Brain Wo Cont - 04/18/2023 12:28 pm CLINICAL HISTORY: Dizziness COMPARISON: None TECHNIQUE: Computed axial tomography of the head was obtained. IV contrast was not requested. All CT scans are performed using dose optimization technique as appropriate and may include automated exposure control or mA/KV adjustment according to patient size. FINDINGS: An intracranial bleed is not seen The ventricles are normal in caliber No extra-axial fluid collection is noted. Mild to moderate low-density areas within periventricular, deep and subcortical white matter likely r epresent ischemic changes secondary to small vessel disease. Right aspect of the sphenoid sinus is completely opacified IMPRESSION: No acute intracranial abnormality is seen Sphenoid sinusitis If patient's symptoms persist MRI of the brain would be recommended
[2023-04-18] MEDS ORDERED: FUROSEMIDE 20 MG/ 2ML VIAL ONE (13:34)
--- NOTE | 2023-04-18 13:39 | ER ---
Nurse's Notes [facility] Name: Kimberly Simons Age: 88 yrs Sex: Female : 1935 Arrival Date: 04/18/2023 Time: 10:08 Bed 14 Private MD: Diagnosis: Dizziness and giddiness;Unspecified atrial fibrillation-history of;Combined systolic (congestive) and diastolic (congestive) heart failure;Presence of cardiac pacemaker;Essential (primary) hypertension Presentation: 04/18 10:37 Chief complaint: Patient states: "I was at my doctors office, [facility], and they mb9 told me to come here because my BP was high, 172/92. I feel slightly SOB and have a dull headache." Pt denies CP/N. Coronavirus screen: Vaccine status: Patient reports being unvaccinated. Ebola Screen: No symptoms or risks identified at this time. Initial Sepsis Screen: Does the patient meet any 2 criteria? No. Patient's initial sepsis screen is negative. Does the patient have a suspected source of infection? No. Patient's initial sepsis screen is negative. Risk Assessment: Do you want to hurt yourself or someone else? Patient reports no desire to harm self or others. Onset of symptoms was April 18, 2023. 10:37 Method Of Arrival: Ambulatory mb9 10:37 Acuity: RUFUS 3 mb9 Triage Assessment: 10:39 General: Appears in no apparent distress. Behavior is calm, cooperative. Pain: mb9 Complains of pain in head Pain does not radiate. Pain currently is 2 out of 10 on a pain scale. Quality of pain is described as dull, Pain began suddenly, Is intermittent. EENT: No signs and/or symptoms were reported regarding the EENT system. Neuro: William Agitation-Sedation Scale (RASS): 0 - Alert and Calm Level of Consciousness is awake, alert, obeys commands, Oriented to person, place, time, situation, Appropriate for age Pupils are PERRLA, Reports headache Denies weakness blurred vision dizziness. Cardiovascular: Denies chest pain, Heart tones S1 S2 present Patient's skin is warm and dry. Rhythm is regular. Respiratory: Reports shortness of breath on exertion Airway is patent Respiratory effort is even, unlabored, Respiratory pattern is regular, symmetrical, Breath sounds are clear bilaterally. Onset: The symptoms/episode began/occurred this morning, the patient has mild shortness of breath. GI: Abdomen is round non-distended, Bowel sounds present X 4 quads. Abd is soft and non tender X 4 quads. Patient currently denies nausea. : Urine is clear. Derm: Skin is pink, warm \\T\\ dry. Musculoskeletal: Range of motion: intact in all extremities. Historical: - Allergies: 10:18 MARLENA INHIBITORS; mb9 10:18 Benadryl; mb9 10:18 bio freeze; mb9 10:18 hydrochlorothiazide; mb9 10:18 Iodine; mb9 10:18 menthol; mb9 10:18 PENICILLINS; mb9 10:18 Prednisone; mb9 10:18 Streptomycin; mb9 10:18 THIAZIDES; mb9 - Home Meds: 10:18 Synthroid 100 mcg Oral tab 1 tab once daily [Active]; mb9 10:41 amiodarone 200 mg oral tablet 2 times per day [Active]; sertraline 25 mg oral tablet 1 mb9 tab daily [Active]; rivaroxaban 20 mg oral tablet 1 tab daily [Active]; pantoprazole 40 mg oral tablet, delayed release (enteric coated) 1 tab once [Active]; Megace Oral 20 mg daily [Active]; losartan 100 mg oral tablet 1 tab daily [Active]; levothyroxine 112 mcg capsule 1 cap daily [Active]; - PMHx: 10:18 GERD; Atrial fibrillation; Hypertension; Hypothyroidism; mb9 - Immunization history:: Adult Immunizations up to date. - Social history:: Smoking status: Patient denies any tobacco usage or history of. Screenin:19 [facility] ED Fall Risk Assessment (Adult) History of falling in the last 3 months, mb9 including since admission No falls in past 3 months (0 pts) Confusion or Disorientation No (0 pts) Intoxicated or Sedated No (0 pts) Impaired Gait No (0 pts) Mobility Assist Device Used No (0 pt) Altered Elimination No (0 pt) Score/Fall Risk Level 0 - 2 = Low Risk Oriented to surroundings, Maintained a safe environment, Educated pt \\T\\ family on fall prevention, incl call for assistance when getting out of bed. Abuse screen: Denies threats or abuse. Nutritional screening: No deficits noted. Tuberculosis screening: No symptoms or risk factors identified. Assessment: 10:53 Reassessment: see triage assessment. mb9 12:14 Reassessment: Patient and/or family updated on plan of care and expected duration. Pain mb9 level reassessed. Patient is alert, oriented x 3, equal unlabored respirations, skin warm/dry/pink. Patient states feeling better. Patient states symptoms have improved. 13:16 Reassessment: No changes from previously documented assessment. Patient and/or family mb9 updated on plan of care and expected duration. Pain level reassessed. Patient is alert, oriented x 3, equal unlabored respirations, skin warm/dry/pink. 13:58 Reassessment: Pure Wic placed on pt. mb9 15:35 Reassessment: No changes from previously documented assessment. Patient and/or family mb9 updated on plan of care and expected duration. Pain level reassessed. Patient is alert, oriented x 3, equal unlabored respirations, skin warm/dry/pink. Patient states feeling better. Patient states symptoms have improved. Vital Signs: 10:37 BP 194 / 86; Pulse 72; Resp 18; Temp 97.4; Pulse Ox 100% ; Weight 53.98 kg; Height 5 mb9 ft. 2 in. ; Pain 2/10; 11:10 BP 185 / 82; Pulse 70; Resp 16; Pulse Ox 98% on R/A; mb9 12:14 BP 186 / 77; Pulse 73; Resp 16; Pulse Ox 100% on R/A; mb9 14:22 BP 171 / 85; Pulse 72; Resp 16; Pulse Ox 96% on R/A; mb9 15:03 BP 149 / 68; Pulse 73; Resp 18; Pulse Ox 97% on R/A; mb9 17:00 BP 138 / 72; Pulse 73; Resp 16; Pulse Ox 99% on R/A; mb9 10:37 Body Mass Index 21.77 (53.98 kg, 157.48 cm) mb9 10:37 Pain Scale: Adult mb9 ED Course: 10:11 Patient arrived in ED. im 10:17 Tenzin Granger MD is Attending Physician. chris 10:18 Heide Warren, TEJ is Primary Nurse. mb9 10:18 Arm band placed on. mb9 10:19 Placed in gown. Bed in low position. Call light in reach. Side rails up X 1. Client mb9 placed on continuous cardiac and pulse oximetry monitoring. NIBP monitoring applied. felt finishing supervisor on. 10:37 Lipase Sent. mb9 10:37 Troponin HS Sent. mb9 10:37 PT-INR Sent. mb9 10:37 NT PRO-BNP Sent. mb9 10:37 Magnesium Sent. mb9 10:37 CBC with Diff Sent. mb9 10:37 Basic Metabolic Panel Sent. mb9 10:37 LFT's Sent. mb9 10:39 Triage completed. mb9 10:39 Inserted saline lock: 22 gauge in right antecubital area, using aseptic technique. mb9 Blood collected. 10:45 EKG done, by ED staff, reviewed by Heide Warren RN. mb9 10:53 No provider procedures requiring assistance completed. mb9 10:59 XRAY Chest (1 view) In Process Unspecified. EDMS 12:30 CT Head Brain wo Cont In Process Unspecified. EDMS 12:52 US Carotid Artery Bilateral In Process Unspecified. EDMS 13:37 Ru Murillo MD is Hospitalizing Provider. chris 13:55 Riccardo Mcpherson is Hospitalizing Provider. chris 14:56 Patient admitted, IV remains in place. mb9 Administered Medications: 12:57 Discontinued: ns 0.9% 1000 ml IV at 125 ml/hr continuous chris 10:36 Drug: Aspirin PO 162 mg PO once Route: PO; mb9 11:11 Follow up: Response: No adverse reaction mb9 10:37 Drug: NS 0.9% IV 1000 ml IV at 125 ml/hr continuous Route: IV; Rate: 125 ml/hr; Site: mb9 right antecubital; 12:22 Drug: Norvasc PO 5 mg PO once Route: PO; mb9 13:59 Follow up: Response: No adverse reaction mb9 13:18 Not Given (Duplicate Order): [id number] mg IVP once; give over 2 minutes chris 13:39 Drug: Furosemide IVP 20 mg IVP once; give over 2 minutes Route: IVP; Site: right mb9 antecubital; 13:59 Follow up: Response: No adverse reaction mb9 14:49 Drug: hydrALAZINE PO 10 mg PO once Route: PO; mb9 14:57 Follow up: Response: No adverse reaction mb9 Medication: 10:19 VIS not applicable for this client. mb9 Output: 14:49 Urine: 150ml (Voided); Total: 150ml. mb9 Outcome: 13:38 Decision to Hospitalize by Provider. chris 17:13 Admitted to Med/surg via wheelchair, room 232, with chart, Report called to ETJ [email or web address] 17:13 Condition: stable 17:13 Instructed on discharge instructions, follow up and referral plans. 17:28 Patient left the ED. [email or web address] Signatures: Dispatcher [employer] EDTenzin Evans MD MD cha Breneman, Heide Gibson RN RN mb9 Chula Randolph im Corrections: (The following items were deleted from the chart) 10:53 10:41 Home Meds: amlodipine oral; mb9 mb9
--- NOTE | 2023-04-18 13:39 | EDPHYS ---
Physician Documentation [facility] Name: Kimberly Simons Age: 88 yrs Sex: Female : 1935 Arrival Date: 04/18/2023 Time: 10:08 Bed 14 Private MD: ED Physician Tenzin Granger HPI: 04/18 13:22 This 88 yrs old Female presents to ER via Ambulatory with complaints of High chris Blood Pressure, Shortness Of Breath. 13:22 The patient has elevated blood pressure and discovered this at home, with a home chris device. Onset: The symptoms/episode began/occurred just prior to arrival, this morning. Modifying factors: The symptoms are aggravated by activity, The symptoms are alleviated by remaining still. Associated signs and symptoms: The patient has no apparent associated signs or symptoms. Severity of symptoms: At its worst the blood pressure was moderate, in the emergency department the blood pressure is improved, mildly. The patient has not experienced similar symptoms in the past. Historical: - Allergies: 10:18 MARLENA INHIBITORS; mb9 10:18 Benadryl; mb9 10:18 bio freeze; mb9 10:18 hydrochlorothiazide; mb9 10:18 Iodine; mb9 10:18 menthol; mb9 10:18 PENICILLINS; mb9 10:18 Prednisone; mb9 10:18 Streptomycin; mb9 10:18 THIAZIDES; mb9 - Home Meds: 10:18 Synthroid 100 mcg Oral tab 1 tab once daily [Active]; mb9 10:41 amiodarone 200 mg oral tablet 2 times per day [Active]; sertraline 25 mg oral tablet 1 mb9 tab daily [Active]; rivaroxaban 20 mg oral tablet 1 tab daily [Active]; pantoprazole 40 mg oral tablet, delayed release (enteric coated) 1 tab once [Active]; Megace Oral 20 mg daily [Active]; losartan 100 mg oral tablet 1 tab daily [Active]; levothyroxine 112 mcg capsule 1 cap daily [Active]; - PMHx: 10:18 GERD; Atrial fibrillation; Hypertension; Hypothyroidism; mb9 - Immunization history:: Adult Immunizations up to date. - Social history:: Smoking status: Patient denies any tobacco usage or history of. ROS: 13:23 Constitutional: Negative for fever, chills, and weight loss, Eyes: Negative for injury, chris pain, redness, and discharge, ENT: Negative for injury, pain, and discharge, Neck: Negative for injury, pain, and swelling, Cardiovascular: Negative for chest pain, palpitations, and edema, Respiratory: Negative for shortness of breath, cough, wheezing, and pleuritic chest pain, Abdomen/GI: Negative for abdominal pain, nausea, vomiting, diarrhea, and constipation, Back: Negative for injury and pain, : Negative for injury, bleeding, discharge, and swelling, MS/Extremity: Negative for injury and deformity, Skin: Negative for injury, rash, and discoloration, Psych: Negative for depression, anxiety, suicide ideation, homicidal ideation, and hallucinations, Allergy/Immunology: Negative for hives, rash, and allergies, Endocrine: Negative for neck swelling, polydipsia, polyuria, polyphagia, and marked weight changes, Hematologic/Lymphatic: Negative for swollen nodes, abnormal bleeding, and unusual bruising, 13:23 Neuro: Positive for dizziness, Exam: 13:23 Constitutional: This is a well developed, well nourished patient who is awake, alert, chris and in no acute distress. Head/Face: Normocephalic, atraumatic. Eyes: Pupils equal round and reactive to light, extra-ocular motions intact. Lids and lashes normal. Conjunctiva and sclera are non-icteric and not injected. Cornea within normal limits. Periorbital areas with no swelling, redness, or edema. ENT: Nares patent. No nasal discharge, no septal abnormalities noted. Tympanic membranes are normal and external auditory canals are clear. Oropharynx with no redness, swelling, or masses, exudates, or evidence of obstruction, uvula midline. Mucous membranes moist. Neck: Trachea midline, no thyromegaly or masses palpated, and no cervical lymphadenopathy. Supple, full range of motion without nuchal rigidity, or vertebral point tenderness. No Meningismus. Chest/axilla: Normal chest wall appearance and motion. Nontender with no deformity. No lesions are appreciated. Cardiovascular: Regular rate and rhythm with a normal S1 and S2. No gallops, murmurs, or rubs. Normal PMI, no JVD. No pulse deficits. Respiratory: Lungs have equal breath sounds bilaterally, clear to auscultation and percussion. No rales, rhonchi or wheezes noted. No increased work of breathing, no retractions or nasal flaring. Abdomen/GI: Soft, non-tender, with normal bowel sounds. No distension or tympany. No guarding or rebound. No evidence of tenderness throughout. Back: No spinal tenderness. No costovertebral tenderness. Full range of motion. Female : Normal external genitalia. Skin: Warm, dry with normal turgor. Normal color with no rashes, no lesions, and no evidence of cellulitis. MS/ Extremity: Pulses equal, no cyanosis. Neurovascular intact. Full, normal range of motion. Neuro: Awake and alert, GCS 15, oriented to person, place, time, and situation. Cranial nerves II-XII grossly intact. Motor strength 5/5 in all extremities. Sensory grossly intact. Cerebellar exam normal. Normal gait. Psych: Awake, alert, with orientation to person, place and time. Behavior, mood, and affect are within normal limits. 13:23 ECG was reviewed by the Attending Physician. Vital Signs: 10:37 BP 194 / 86; Pulse 72; Resp 18; Temp 97.4; Pulse Ox 100% ; Weight 53.98 kg; Height 5 mb9 ft. 2 in. ; Pain 2/10; 11:10 BP 185 / 82; Pulse 70; Resp 16; Pulse Ox 98% on R/A; mb9 12:14 BP 186 / 77; Pulse 73; Resp 16; Pulse Ox 100% on R/A; mb9 14:22 BP 171 / 85; Pulse 72; Resp 16; Pulse Ox 96% on R/A; mb9 15:03 BP 149 / 68; Pulse 73; Resp 18; Pulse Ox 97% on R/A; mb9 17:00 BP 138 / 72; Pulse 73; Resp 16; Pulse Ox 99% on R/A; mb9 10:37 Body Mass Index 21.77 (53.98 kg, 157.48 cm) mb9 10:37 Pain Scale: Adult mb9 MDM: 10:17 Patient medically screened. [facility] 13:24 Antibiotic administration: Not indicated. Differential diagnosis: CHF exacerbation, chris hypertensive crisis, Malignant HTN, CVA, intracerebral hemorrhage, Myocardial Infarction pneumonia, pulmonary edema, Pulmonary Embolism Sepsis. Differential diagnosis: cardiac arrhythmia, CVA, generalized weakness, hypovolemia, idiopathic dizziness, TIA. Immunization status: Pneumococcal vaccine: within last 5 years. Influenza vaccine: within last 5 years. Data reviewed: vital signs, nurses notes, lab test result(s), EKG, radiologic studies, CT scan, doppler, plain films. Consideration of Admission/Observation Patient was admitted/placed on observation. Escalation of care including admission/observation considered. I considered the following discharge prescriptions or medication management in the emergency department Medications were administered in the Emergency Department. See MAR. Independent interpretation of the following test(s) in the Emergency Department EKG: See my EKG interpretation above. Test considered but Not performed: MRI: no mri brain. Historians other than the Patient: Daughter/Son: daughter , well informed. Care significantly affected by the following chronic conditions: Hypertension, hypothyroid, a fib, gerd. Counseling: I had a detailed discussion with the patient and/or guardian regarding the historical points, exam findings, and any diagnostic results supporting the discharge/admit diagnosis, lab results, radiology results, the need for further work-up and treatment in the hospital. 04/18 10: Order name: Basic Metabolic Panel; Complete Time: 12:06 chris 04/18 10: Order name: CBC with Diff; Complete Time: 12:06 chris 04/18 10: Order name: LFT's; Complete Time: 12:06 chris 04/18 10: Order name: Magnesium; Complete Time: 12:06 chris 04/18 10:19 Order name: NT PRO-BNP; Complete Time: 12:06 chris 04/18 10: Order name: PT-INR; Complete Time: 12:06 chris 04/18 10: Order name: Troponin HS; Complete Time: 12:06 chris 04/18 10:19 Order name: Lipase; Complete Time: 12:06 chris 04/18 10: Order name: Urinalysis w/ reflexes; Complete Time: 12:06 chris 04/18 15:04 Order name: T4 Free EDMS 04/18 15:04 Order name: Thyroid Stimulating Hormone EDMS 04/18 15:04 Order name: Urinalysis w/ reflexes EDMS 04/18 15:04 Order name: Basic Metabolic Panel EDMS 04/18 15:04 Order name: Basic Metabolic Panel EDMS 04/18 15:04 Order name: CBC with Automated Diff EDMS 04/18 15:04 Order name: CBC with Automated Diff EDMS 04/18 15:04 Order name: Magnesium EDMS 04/18 15:04 Order name: Magnesium EDMS 04/18 15:04 Order name: Phosphorus [facility] 04/18 15:04 Order name: Phosphorus [facility] 04/18 10:19 Order name: XRAY Chest (1 view); Complete Time: 12:06 [facility] 04/18 12:15 Order name: CT Head Brain wo Cont; Complete Time: 12:56 [facility] 04/18 12:15 Order name: US Carotid Artery Bilateral [facility] 04/18 13:45 Order name: Echo w/ Doppler [facility] 04/18 10:19 Order name: EKG; Complete Time: 10:20 [facility] 04/18 15:04 Order name: CONS Physician Consult [facility] 04/18 10:19 Order name: Cardiac monitoring; Complete Time: 10:37 [facility] 04/18 10:19 Order name: EKG - Nurse/Tech; Complete Time: 10:37 [facility] 04/18 10:19 Order name: IV Saline Lock; Complete Time: 10:37 [facility] 04/18 10:19 Order name: Labs collected and sent; Complete Time: 10:37 [facility] 04/18 10:19 Order name: O2 Per Protocol; Complete Time: 10:37 [facility] 04/18 10:19 Order name: O2 Sat Monitoring; Complete Time: 10:37 [facility] EC:23 Rate is 72 beats/min. Rhythm is regular. QRS Varina is Normal. ID interval is normal. QRS chris interval is normal. QT interval is normal. No Q waves. T waves are Normal. No ST changes noted. Clinical impression: Abnormal EKG without significant change and No evidence of ischemia. Interpreted by me. Reviewed by me. Administered Medications: 12:57 Discontinued: ns 0.9% 1000 ml IV at 125 ml/hr continuous chris 10:36 Drug: Aspirin PO 162 mg PO once Route: PO; mb9 11:11 Follow up: Response: No adverse reaction mb9 10:37 Drug: NS 0.9% IV 1000 ml IV at 125 ml/hr continuous Route: IV; Rate: 125 ml/hr; Site: mb9 right antecubital; 12:22 Drug: Norvasc PO 5 mg PO once Route: PO; mb9 13:59 Follow up: Response: No adverse reaction mb9 13:18 Not Given (Duplicate Order): [id number] mg IVP once; give over 2 minutes chris 13:39 Drug: Furosemide IVP 20 mg IVP once; give over 2 minutes Route: IVP; Site: right mb9 antecubital; 13:59 Follow up: Response: No adverse reaction mb9 14:49 Drug: hydrALAZINE PO 10 mg PO once Route: PO; mb9 14:57 Follow up: Response: No adverse reaction mb9 Disposition Summary: 04/18/23 13:38 Hospitalization Ordered Notes: Hospitalization Status: Observation chris Location: Telemetry/MedSurg (observation) chris Condition: Fair chris Problem: new chris Symptoms: have improved chris Bed/Room Type: Standard chris Provider: Riccardo Mcpherson(04/18/23 13:55) chris Room Assignment: 232(04/18/23 16:46) dw Diagnosis - Dizziness and giddiness chris - Unspecified atrial fibrillation - history of chris - Combined systolic (congestive) and diastolic (congestive) heart failure chris - Presence of cardiac pacemaker chris - Essential (primary) hypertension chris Forms: - Medication Reconciliation Form chris - SBAR form chris - Leadership Thank You Letter chris Signatures: Dispatcher [employer] Savita Lafleur RN RN dw Anderson, Corey, MD MD cha Breneman, Mary Beth RN RN mb9 Corrections: (The following items were deleted from the chart) 10:53 10:41 Home Meds: amlodipine oral; mb9 mb9 13:55 13:38 Ru Murillo cha [facility] 16:46 13:38 chris rees
--- NOTE | 2023-04-18 13:45 | RAD REPORT ---
EXAM DESCRIPTION: - CP - 04/18/2023 1:04 pm CLINICAL HISTORY: DIZZINESS COMPARISON: No comparisons TECHNIQUE: Real-time sonographic grayscale, color duplex, and spectral wave Doppler evaluation of jeovany carotid systems was performed. FINDINGS: Normal high resistance waveforms are noted in both external carotid arteries. The common c arotid arteries and internal carotid arteries show normal low resistance waveforms. Moderate irregular, partially calcified plaque formation is seen at the left carotid bulb and mid to distal left internal carotid artery. No significant plaque on the right. Right more than left ICA tor tuosity limits evaluation. Peak systolic velocity less than 125 cm/ sec on the right, within normal, with ICA/CCA peak systolic ratio less than 2.0. Peak systolic velocity is mildly elevated on the lef t, up to 146 cm/sec. ICA/CCA peak systolic ratio calculated at 2.2 on the left. Antegrade flow seen in both vertebral arteries. IMPRESSION: Moderate plaque formation at the left carotid bulb and mid to distal left ICA, with evid ence of 50-69% stenosis. No significant atherosclerotic changes or hemodynamically significant stenosis on the right. Evaluation of carotid artery stenosis, if any, is reported based on consensus recommendations of the Society of Radiologists in Ultrasound (Anjel et al., Radiology, 2003)
[2023-04-18] MEDS ORDERED: HYDRALAZINE HCL 10 MG TABLET ONE (15:01)
[2023-04-18] MEDS: ENOXAPARIN 40 MG/0.4 ML SQ SCH (16:00)
[2023-04-18 16:28] VITALS: BMI 21.7
[2023-04-18 16:34] LABS: Thyroid Stimulating Hormone 3.45 uIU/mL (0.358-3.740)
[2023-04-18] MEDS ORDERED: ENOXAPARIN 40 MG/0.4 ML SQ ONE (16:44)
[2023-04-18] MEDS ORDERED: HYDRALAZINE HCL 20 MG/ML VIAL IV PRN (17:59)
[2023-04-18] MEDS: SOTALOL HCL 80 MG TAB PO SCH (18:42)
--- NOTE | 2023-04-18 19:09 | P.HP ---
Certification for Inpatient Patient admitted to: Observation With expected LOS: >2 Midnights Patient will require the following post-hospital care: None Practitioner: I am a practitioner with admitting privileges, knowledge of patient current condition, hospital course, and medical plan of care. Services: Services provided to patient in accordance with Admission requirements found in Title 42 Section 412.3 of the Code of Federal Regulations Patient History Date of Service: 04/18/23 Reason for admission: dizziness History of Present Illness: Kimberly Simons is a 8-year-old female with past medical history of GERD, atrial fibrillation with pacemaker, hypertension, hypothyroidism who presents to the ED with complaints of high blood pressure associated with dizziness. Kimberly reports her daughter checked her blood pressure this morning finding SBP to be over 200 then took her to the doctor for this condition where her blood pressure was also elevated and she was told to go to the ED for further treatment. She explains that she was walking with her walker yesterday and was getting dizzy leaning towards the left while walking. Her only complaint is dizziness. Vitals BP 194/86, HR 72, respirations 18, temperature 97.4, pulse ox 100% on room air. EKG shows prolonged QT's 475/521, ventricular paced rate. CT head reports no acute intracranial abnormality, right aspect of sphenoid sinus is completely opacified. Bilateral carotid ultrasound reveals "moderate plaque formation at the left carotid bulb and mid to distal left ICA with evidence of 50 to 69% stenosis". Chest x-ray shows "pulmonary vascular congestion, lungs appear clear of acute infiltrate." Kimberly will be admitted to hospitalist service for further evaluation and treat ment of hypertension and dizziness. Allergies MARLENA Inhibitors Allergy (Verified 05/10/17 21:34) Anaphylaxis Penicillins Allergy (Verified 05/10/17 21:34) Hives camphor [From Biofreeze] Adverse Reaction (Verified 05/10/17 21:34) Hives diphenhydramine [From Benadryl] Adverse Reaction (Verified 05/10/17 21:34) Nausea/Vomiting hydrochlorothiazide Adverse Reaction (Verified 06/13/18 00:17) Anaphylaxis iodine Adverse Reaction (Verified 05/10/17 21:34) Hives menthol [From Biofreeze] Adverse Reaction (Verified 05/10/17 21:34) Hives prednisone Adverse Reaction (Verified 05/10/17 21:34) Hives streptomycin Adverse Reaction (Verified 05/10/17 21:34) Rash Thiazides Adverse Reaction (Verified 06/13/18 00:17) Anaphylaxis Home Medications: Pantoprazole [Protonix Tab*] 40 mg PO ACB 04/23/18 Sotalol HCl [Betapace*] 40 mg PO BID 6AM 6PM #60 tab 04/25/18 Losartan Potassium 100 mg PO DAILY #30 tablet 06/13/18 Bimatoprost [Lumigan Opthalmic Drops*] 1 gtt EACH EYE BEDTIME 04/16/22 Levothyroxine [Synthroid*] 88 mcg PO 2200 04/16/22 Rivaroxaban [Xarelto] 20 mg PO DAILY AT SUPPER 04/16/22 Diltiazem Cd [Cardizem Cd*] 120 mg PO DAILY #30 cap 04/19/22 - Past Medical/Surgical History Has patient received pneumonia vaccine in the past: Yes Diabetic: No -: Hypothyroidism -: HTN -: Atrial fibrillation on chronic anti coagulation therapy -: GERD -: Hysterectomy -: Vein stripping -: Pacemaker Psychosocial/ Personal History: The patient is a . She has 4 children. She does not work. - Family History Mother -: Heart disease, Cancer Father -: Stroke Brother -: Heart disease Sister -: Heart disease - Social History Smoking Status: Never smoker Alcohol use: No CD- Drugs: No Caffeine use: Yes Review of Systems General: Unremarkable Eyes: Unremarkable ENT: Unremarkable Respiratory: Unremarkable Cardiovascular: Unremarkable Gastrointestinal: Unremarkable Genitourinary: Unremarkable Musculoskeletal: Unremarkable Integumentary: Unremarkable Neurological: Other (Dizziness) Lymphatics: Unremarkable Physical Examination - Vital Signs Temperature: 97.8 F Blood Pressure: 175/90 Pulse: 71 Respirations: 16 Pulse Ox (%): 99 - Physical Exam General: Alert, In no apparent distress, Oriented x3 HEENT: Atraumatic, Normocephalic, PERRLA Neck: Supple, 2+ carotid pulse no bruit, JVD not distended Respiratory: Clear to auscultation bilaterally, Normal air movement Cardiovascular: Normal pulses, Regular rate/rhythm, Normal S1 S2, Systolic murmur Capillary refill: <2 Seconds Gastrointestinal: Normal bowel sounds, Soft and benign Musculoskeletal: No clubbing, No swelling, No contractures Integumentary: No rashes, No breakdown, No significant lesion Neurological: Normal speech, Normal strength at 5/5 x4 extr, Normal tone - Studies Laboratory Data (last 24 hrs) 04/18/23 04/18/23 04/18/23 10:33 10:33 10:33 WBC 5.80 Hgb 11.5 L Hct 35.9 L Plt Count 356 PT 16.3 H INR 1.48 Sodium 135 L Potassium 3.7 BUN 15 Creatinine 0.92 Glucose 106 Magnesium 2.4 Total Bilirubin 0.8 AST 18 ALT 17 Alkaline Phosphatase 58 Lipase 79 H Assessment and Plan - Plan Assessment and Plan Hypertension -restart home medications -losartan, hydralazine Afib with pacemaker Dizziness Prolonged QT -QT interval 476/521 -careful medication choices -sotalol and diltiazem -consult Dr Infante Pulmonary vascular congestion Left carotid stenosis -follow up as outpatient Sphenoid sinusitis -CT head "Right aspect of the sphenoid sinus is completely opacified" -azithromycin daily x 5 days h/o hypothyroidism -restart home synthroid -TSH 3.450, T4 1.55 DVT ppx: lovenox DNR LOS 2-3 days Discharge Plan: Home Plan to discharge in: 48 Hours - Advance Directives Does patient have a Living Will: Yes Does patient have a Durable POA for Healthcare: No Time Spent Managing Pts Care (In Minutes): 55
[2023-04-18] MEDS: LEVOTHYROXINE SOD 0.088 MG TAB PO SCH (21:09)
[2023-04-19 03:31] LABS: Absolute Lymphocytes (CBC) 1.8 K/uL (0.7-4.9); Hematocrit 31.5 % (36.0-45.0); Lymphocytes % 30.5 % (15.3-44.8); MCV 81.2 fL (80-100); Platelets 323 thou/uL (152-406); RBC Red Blood Cell Count 3.88 M/uL (3.86-4.86)
[2023-04-19 03:37] LABS: Magnesium 2.2 mg/dL (1.6-2.4); Phosphorus 3.3 mg/dL (2.5-4.9); Potassium 3.2 mEq/L (3.5-5.1)
[2023-04-19] MEDS ORDERED: POTASSIUM 25 MEQ EFFERV TAB PO ONE (04:36)
[2023-04-19] MEDS: SOTALOL HCL 80 MG TAB PO SCH (05:03)
[2023-04-19] MEDS ORDERED: HOME MED 1 EA UNK (Losartan Potassium [Losartan Potassium] 100 MG Tablet) PO SCH (09:00)
[2023-04-19] MEDS: ENOXAPARIN 40 MG/0.4 ML SQ SCH (10:51)
[2023-04-19] MEDS: DILTIAZEM HCL 120 MG SR CAP PO SCH (10:51)
[2023-04-19] MEDS: LOSARTAN POTASSIUM 50 MG TABLET PO SCH (10:51)
[2023-04-19] MEDS: ACETAMINOPHEN 500 MG TAB PO PRN ×2 (11:46→21:12)
--- NOTE | 2023-04-19 14:43 | EKG ---
Test Date: 2023-04-18 Test Time: 10:46:05 Pathology Laboratory Aide: MB MEASUREMENT RESULTS: Intervals: Rate: 72 FL: QRSD: 162 QT: 476 QTc: 521 [place]: P: FL: QRS: -50 T: 124 INTERPRETIVE STATEMENTS: Ventricular-paced rhythm Abnormal ECG Compared to ECG 05/30/2022 08:09:00 Atrial fibrillation no longer present Left-axis deviation no longer present Myocardial infarct finding no longer present ST (T wave) deviation no longer present Possible ischemia no longer present Electronically Signed On 04-19-23 14:41:13 CDT by Leno Infante
--- NOTE | 2023-04-19 17:06 | P.PN ---
Subjective Date of Service: 04/19/23 Chief Complaint: dizziness Physical Examination - Vital Signs Temperature: 97.9 F Blood Pressure: 138/80 Pulse: 72 Respirations: 14 Pulse Ox (%): 98 Assessment And Plan - Plan Physical Exam General: Alert, In no apparent distress, Oriented x3 Neck: Supple, JVD not distended Respiratory: Clear to auscultation bilaterally, Normal air movement Cardiovascular: Normal pulses, Regular rate/rhythm, Normal S1 S2, Systolic murmur Gastrointestinal: Normal bowel sounds, Soft and benign Musculoskeletal: No clubbing, No swelling, No contractures Integumentary: No rashes, No breakdown, No significant lesion Neurological: Normal speech, Normal strength at 5/5 x4 extr, Normal tone Diagnosis Hypertensive urgency Chronic atrial fibrillation Chronic diastolic heart failure Status post pacemaker Prolonged QT interval Hypothyroidism Hypertension -Continue home medications-Cardizem, losartan -Started metoprolol for A-fib. -Monitor blood pressure Afib with pacemaker Dizziness Prolonged QT -QT interval 476/521 -Case discussed with cardiology Dr. Infante -continue diltiazem -Replace sotalol with equivalent dose metoprolol-25 mg twice daily. - Dr Infante input appreciated. Left carotid stenosis -follow up as outpatient Chronic diastolic heart failure -Chest x-ray shows mild pulmonary vascular congestion -Patient is euvolemic and stable on room air. Sphenoid sinusitis -CT head "Right aspect of the sphenoid sinus is completely opacified" -azithromycin daily x 5 days h/o hypothyroidism -Continue home dose synthroid -TSH 3.450, T4 1.55 DVT ppx: Xarelto DNR
[2023-04-19] MEDS: METOPROLOL TAR 25 MG TAB PO SCH (18:33)
--- NOTE | 2023-04-19 19:36 | CON ---
Date of Consultation: 04/19/2023 Reason For Consultation: Elevated QTc interval. History Of Present Illness: This is an 88-year-old female with history of acid reflux; atrial fibril lation, status post pacemaker implantation; hypothyroidism; hypertension, and she has been having elsy y high blood pressure, feeling slightly dizzy, so presented to the emergency room. On workup, EKG QT c interval was above 500 and she is on sotalol at home. Past Medical History: As outlined above in the HPI. Medications: Refer to reconciliation sheet for detailed list. Allergies: MARLENA INHIBITORS, PENICILLIN, DIPHENHYDRAMINE. Family History: No premature coronary artery disease. Social History: She does not smoke or drink. Does not use any drugs. Review of Systems: All systems reviewed were negative except for mentioned in HPI. Physical Examination: Vital Signs: Reviewed. Head and Neck: Pupils are equal, reactive to light. Intact eye movements. No cervical lymphadenopa thy. Neck: Supple. Thyroid is not enlarged. Lungs: Decreased breathing sounds bilaterally. No accessory muscle use or muscle retraction. Heart: Irregularly irregular. No extra sounds. Abdomen: Soft, nontender. Bowel sounds positive. No organomegaly. No masses or hernia. No rigidi ty or rebound. Extremities: No clubbing, cyanosis. Intact pulses. Skin: No rash. Neurologic: Alert, awake, oriented x3. No acute focal deficits appreciated. Investigations: Troponin is 13.9, NT-proBNP is 1240. BUN is 14, creatinine 0.87. Hemoglobin is 10. 5. Assessment And Recommendations: 1.Prolonged QTc interval is about 530. It is a paced rhythm, so this might not reflect the reality. However, I recommend to discontinue sotalol and start her on metoprolol. Start initially 25 mg twi ce a day and titrate it up for heart rate control. Patient has a backup pacemaker. 2.Elevated NT-proBNP, likely chronic heart failure. She is not overloaded. Obtain an echo to asses s. 3.Hypertension. Blood pressure has improved. Continue current management. SR/MODL Voice ID: [id number] Report ID: [id number]
[2023-04-19] MEDS: BIMATOPROST OPHTH DROPS/2.5 ML BTL OPTH SCH (21:00)
[2023-04-19] MEDS: LEVOTHYROXINE SOD 0.088 MG TAB PO SCH (21:12)
[2023-04-20] MEDS: METOPROLOL TAR 25 MG TAB PO SCH (05:13)
[2023-04-20 06:36] LABS: Potassium 4.5 mEq/L (3.5-5.1)
[2023-04-20] MEDS: DILTIAZEM HCL 120 MG SR CAP PO SCH (09:00)
[2023-04-20] MEDS: LOSARTAN POTASSIUM 50 MG TABLET PO SCH (09:37)
--- NOTE | 2023-04-20 12:00 | P.DS ---
Admission Date: 04/18/23 Discharge Date: 04/20/23 Disposition: ROUTINE DISCHARGE Discharge Condition: FAIR Reason for Admission: dizziness Brief History of Present Illness: Kimberly Simons is 88-year-old female with past medical history of GERD, atrial fibrillation with pacemaker, hypertension, hypothyroidism who presented to the ED with complaints of high blood pressure associated with dizziness. Kimberly reported her daughter checked her blood pressure finding SBP to be over 200 then took her to the doctor for this condition where her blood pressure was also elevated and she was told to go to the ED for further treatment. Vitals BP 194/86, HR 72, respirations 18, temperature 97.4, pulse ox 100% on room air. EKG shows prolonged QT's 475/521, ventricular paced rate. CT head reports no acute intracranial abnormality, right aspect of sphenoid sinus is completely opacified. Bilateral carotid ultrasound revealed "moderate plaque formation at the left carotid bulb and mid to distal left ICA with evidence of 50 to 69% stenosis". Chest x-ray shows "pulmonary vascular congestion, lungs appear clear of acute infiltrate." Patient was hospitalized for further management. Hospital Course: Diagnosis Hypertensive urgency Chronic atrial fibrillation Chronic diastolic heart failure Status post pacemaker Prolonged QT interval Hypothyroidism Hypertension -Continued home medications- losartan -Started metoprolol for A-fib. -Monitor blood pressure Afib with pacemaker Dizziness Prolonged QT -QT interval 476/521 -Case discussed with cardiology Dr. Dalal -Patient apparently has not been on Cardizem and sotalol for several months. - Dr Dalal input appreciated. -Metoprolol added for rate control and for blood pressure control. Left carotid stenosis -follow up as outpatient Chronic diastolic heart failure -Chest x-ray shows mild pulmonary vascular congestion -Patient is euvolemic and stable on room air. Sphenoid sinusitis -CT head "Right aspect of the sphenoid sinus is completely opacified" -azithromycin daily x 5 days h/o hypothyroidism -Continue home dose synthroid -TSH 3.450, T4 1.55 Vital Signs/Physical Exam: Temp Pulse Resp BP Pulse Ox 97.2 F 72 16 159/87 H 99 04/20/23 08:00 04/20/23 08:00 04/20/23 08:00 04/20/23 08:00 04/20/23 08:00 General: Alert, In no apparent distress, Oriented x3 HEENT: Mucous membr. moist/pink Neck: Supple, JVD not distended Respiratory: Clear to auscultation bilaterally, Normal air movement Cardiovascular: No edema, Regular rate/rhythm, Normal S1 S2 Gastrointestinal: Normal bowel sounds, Soft and benign, Non-distended, No tenderness Musculoskeletal: No swelling Integumentary: No rashes, No cyanosis Neurological: Normal strength at 5/5 x4 extr Laboratory Data at Discharge: WBC 5.90 thou/uL (4.3-10.9) 04/19/23 02:13 Hgb 10.5 g/dL (12.0-15.0) L D 04/19/23 02:13 Hct 31.5 % (36.0-45.0) L 04/19/23 02:13 Plt Count 323 thou/uL (152-406) 04/19/23 02:13 PT 16.3 SECONDS (9.5-12.5) H 04/18/23 10:33 INR 1.48 04/18/23 10:33 Sodium 134 mEq/L (136-145) L 04/20/23 06:00 Potassium 4.5 mEq/L (3.5-5.1) 04/20/23 06:00 BUN 17 mg/dL (7-18) 04/20/23 06:00 Creatinine 1.02 mg/dL (0.55-1.02) 04/20/23 06:00 Glucose 100 mg/dL (74-106) 04/20/23 06:00 Phosphorus 3.3 mg/dL (2.5-4.9) 04/19/23 02:13 Magnesium 2.2 mg/dL (1.6-2.4) 04/19/23 02:13 Total Bilirubin 0.8 mg/dL (0.2-1.0) 04/18/23 10:33 AST 18 U/L (15-37) 04/18/23 10:33 ALT 17 U/L (13-56) 04/18/23 10:33 Alkaline Phosphatase 58 U/L (45-117) 04/18/23 10:33 Lipase 79 U/L (13-75) H 04/18/23 10:33 Home Medications: Pantoprazole [Protonix Tab*] 40 mg PO ACB 04/23/18 Losartan Potassium 100 mg PO DAILY #30 tablet 06/13/18 Levothyroxine [Synthroid*] 112 mcg PO DAILY 04/16/22 Rivaroxaban [Xarelto] 20 mg PO DAILY AT SUPPER 04/16/22 Bimatoprost [Lumigan] 7.5 ml OP BEDTIME #5 ml 04/20/23 Loteprednol Etabonate 5 gm OP DAILY 04/20/23 Metoprolol Tartrate [Lopressor*] 50 mg PO BID #60 tab 04/20/23 New Medications: Metoprolol Tartrate [Lopressor*] 50 mg PO BID #60 tab Bimatoprost [Lumigan] 7.5 ml OP BEDTIME #5 ml Physician Discharge Instructions: PROBLEM: Dizziness GOAL: Clear understanding of disease process INSTRUCTIONS: Follow up with PCP in 1-2 weeks. Call to make an appointment. Follow up with cardiology in 1-2 weeks. Call to make an appointment. Return to ER if symptoms worsen. Diet: Heart Healthy Activity: As tolerated COMMUNITY SERVICES Services Needed: Home Health Name of Company: [facility] Date or Referral: IMMUNIZATION Influenza Vaccine Indicated: No Influenza Vaccine Given: Date Given: Pneumonia Vaccine Indicated: No Pneumonia Vaccine Given: Date Given: Follow up with a Medical Billing Coordinator of your choice: ARY DALAL MD [address] [place] [phone] Diet: AHA Activity: Fall precautions Followup: MELISSA TORRES [Primary Care Provider] - Time spent managing pt's care (in minutes): 28
[2023-04-20] MEDS ORDERED: METOPROLOL TAR 25 MG TAB PO ONE (12:19)
[2023-04-20] MEDS ORDERED: BISACODYL 10 MG RECTAL SUPP PR ONE (13:38)
--- NOTE | 2023-04-20 15:55 | P.PN ---
Subjective Date of Service: 04/20/23 Chief Complaint: dizziness Patient is complaining of constipation. She denies any dizziness. SBP is moderately elevated. Patient home medications updated and noted she does not take sotalol or Cardizem. Physical Examination - Vital Signs Temperature: 97.1 F Blood Pressure: 171/90 Pulse: 72 Respirations: 16 Pulse Ox (%): 99 Assessment And Plan - Plan Physical Exam General: Alert, In no apparent distress, Oriented x3 Neck: Supple, JVD not distended Respiratory: Clear to auscultation bilaterally, Normal air movement Cardiovascular: Normal pulses, Regular rate/rhythm, Normal S1 S2, Systolic murmur Gastrointestinal: Normal bowel sounds, Soft and benign Musculoskeletal: No clubbing, No swelling, No contractures Integumentary: No rashes, No breakdown, No significant lesion Neurological: Normal speech, Normal strength at 5/5 x4 extr, Normal tone Diagnosis Hypertensive urgency Chronic atrial fibrillation Chronic diastolic heart failure Status post pacemaker Prolonged QT interval Hypothyroidism Hypertension -Continue home medications-, losartan -Started metoprolol 25 mg twice daily and titrated to 50 mg twice daily. -Monitor blood pressure Afib with pacemaker Dizziness Prolonged QT -QT interval 476/521 -Case discussed with cardiology Dr. Infante -Patient has not been taking sotalol or Cardizem. - Dr Infante input appreciated. -Patient placed on metoprolol and titrated to 50 mg twice daily. Left carotid stenosis -follow up as outpatient Chronic diastolic heart failure -Chest x-ray shows mild pulmonary vascular congestion -Patient is euvolemic and stable on room air. Sphenoid sinusitis -CT head "Right aspect of the sphenoid sinus is completely opacified" -azithromycin daily x 5 days h/o hypothyroidism -Continue home dose synthroid -TSH 3.450, T4 1.55 Functional constipation Dulcolax suppository today MiraLAX. DVT ppx: Xarelto DNR
[2023-04-20] MEDS: RIVAROXABAN 20 MG TABLET PO SCH (16:40)
[2023-04-20] MEDS: METOPROLOL TAR 50 MG TAB PO SCH (18:04)
[2023-04-20] MEDS: BIMATOPROST OPHTH DROPS/2.5 ML BTL OPTH SCH (21:00)
[2023-04-20] MEDS: POLYETHYL GLY 3350 17 GM/DOSE PO SCH (21:03)
[2023-04-20] MEDS: LEVOTHYROXINE SOD 0.088 MG TAB PO SCH (21:04)
[2023-04-21] MEDS: METOPROLOL TAR 50 MG TAB PO SCH ×2 (05:10→17:24)
[2023-04-21] MEDS: LOTEPREDNOL ETABONATE OPTH SCH (09:00)
[2023-04-21] MEDS ORDERED: AMLODIPINE 10 MG TAB PO SCH (09:00)
[2023-04-21] MEDS: POLYETHYL GLY 3350 17 GM/DOSE PO SCH ×2 (09:00→16:26)
[2023-04-21] MEDS: LOSARTAN POTASSIUM 50 MG TABLET PO SCH (09:43)
[2023-04-21] MEDS: PANTOPRAZOLE 40MG TABLET PO SCH (09:43)
--- NOTE | 2023-04-21 14:22 | P.PN ---
Subjective Date of Service: 04/21/23 Chief Complaint: dizziness Patient reports having a bowel movement last night. She denies any dizziness. BP readings are better today. Physical Examination - Vital Signs Temperature: 98.4 F Blood Pressure: 114/53 Pulse: 72 Respirations: 16 Pulse Ox (%): 97 Assessment And Plan - Plan Physical Exam General: Alert, In no apparent distress, Oriented x3 Neck: Supple, JVD not distended Respiratory: Clear to auscultation bilaterally, Normal air movement Cardiovascular: Normal pulses, Regular rate/rhythm, Normal S1 S2, Systolic murmur Gastrointestinal: Normal bowel sounds, Soft and benign Musculoskeletal: No clubbing, No swelling, No contractures Integumentary: No rashes, No breakdown. Neurological: Normal speech, Normal strength at 5/5 x4 extr. Diagnosis Hypertensive urgency Chronic atrial fibrillation Chronic diastolic heart failure Status post pacemaker Prolonged QT interval Hypothyroidism Hypertension -Blood pressure readings improved -Continue home medications-losartan -Started metoprolol 25 mg twice daily and titrated to 50 mg twice daily. -Monitor blood pressure Afib with pacemaker Dizziness Prolonged QT -QT interval 476/521 -Case discussed with cardiology Dr. Infante -Patient has not been taking sotalol or Cardizem. - Dr Infante input appreciated. -Patient placed on metoprolol and titrated to 50 mg twice daily. Left carotid stenosis -follow up as outpatient Chronic diastolic heart failure -Chest x-ray shows mild pulmonary vascular congestion -Patient is euvolemic and stable on room air. Sphenoid sinusitis -CT head "Right aspect of the sphenoid sinus is completely opacified" -azithromycin daily x 5 days h/o hypothyroidism -Continue home dose synthroid -TSH 3.450, T4 1.55 Functional constipation Dulcolax suppository today Continue MiraLAX. Obtain KUB to evaluate stool burden. Generalized weakness PT consult Family is contemplating on skilled rehab. DVT ppx: Kaci DNR
[2023-04-21] MEDS: ACETAMINOPHEN 500 MG TAB PO PRN (15:21)
[2023-04-21] MEDS: RIVAROXABAN 20 MG TABLET PO SCH (16:21)
--- NOTE | 2023-04-21 17:09 | RAD REPORT ---
EXAM DESCRIPTION: RAD - Abdomen 1 View (KUB) - 04/21/2023 5:04 pm CLINICAL HISTORY: Constipation COMPARISON: <Comparisons> FINDINGS: Nonobstructive bowel gas pattern. No acute osseous abnormality.Visualized lungs are unrema rkable.No abnormal calcifications. Thoracolumbar curvature. IMPRESSION: Nonobstructive bowel gas pattern.
[2023-04-21] MEDS: BIMATOPROST OPHTH DROPS/2.5 ML BTL OPTH SCH (21:00)
[2023-04-22 03:43] LABS: Absolute Lymphocytes (CBC) 1.8 K/uL (0.7-4.9); Hematocrit 32.5 % (36.0-45.0); Lymphocytes % 28.5 % (15.3-44.8); MCV 81.3 fL (80-100); Platelets 290 thou/uL (152-406)
[2023-04-22 03:58] LABS: Potassium 3.9 mEq/L (3.5-5.1)
[2023-04-22] MEDS ORDERED: POTASSIUM 25 MEQ EFFERV TAB PO ONE (06:00)
[2023-04-22] MEDS: METOPROLOL TAR 50 MG TAB PO SCH ×2 (06:20→18:00)
[2023-04-22] MEDS: LEVOTHYROXINE SOD 0.088 MG TAB PO SCH (06:20)
--- NOTE | 2023-04-22 06:58 | ECHO ---
HEIGHT: 5 ft 2 in WEIGHT: 119 lb 0 oz DATE OF STUDY: 04/19/[address]: Tenzin Granger MD 2-DIMENSIONAL: YES M.MODE: YES DOPPLER: YES COLOR FLOW: YES TDS: YES PORTABLE: YES DEFINITY: BUBBLE STUDY: DIAGNOSIS: CONGESTIVE HEART FAILURE CARDIAC HISTORY: CATHERIZATION: SURGERY: PROSTHETIC VALVE: PACEMAKER: MEASUREMENTS (cm) DIASTOLIC (NORMALS) SYSTOLIC (NORMALS) IVSd 0.9 (0.6-1.2) LA Diam 4.0 (1.9-4.0) LVEF 68% LVIDd 4.5 (3.5-5.7) LVIDs 2.8 (2.0-3.5) %FS 38% LVPWd 1.0 (0.6-1.2) Ao Diam 3.1 (2.0-3.7) 2 DIMENSIONAL ASSESSMENT: RIGHT ATRIUM: NORMAL LEFT ATRIUM: ENLARGED RIGHT VENTRICLE: NORMAL LEFT VENTRICLE: NORMAL TRICUSPID VALVE: MODERATE TRICUSPID REGURGITATION MITRAL VALVE: MILD MITRAL REGURGITATION PULMONIC VALVE: NORMAL AORTIC VALVE: MILD AORTIC INSUFFICIENCY PERICARDIAL EFFUSION: NONE AORTIC ROOT: NORMAL LEFT VENTRICULAR WALL MOTION: NORMAL DOPPLER/COLOR FLOW: SEE BELOW COMMENTS: 1. NORMAL LEFT VENTRICULAR EJECTION FRACTION 60-65% 2. NORMAL WALL MOTION 3. SEVERE DIASTOLIC DYSFUCNTION 4. LEFT ATRIAL ENLARGEMENT 5. MODERATE TRICUSPID REGURGITATION TECHNOLOGIST: MEGAN GUERRA
[2023-04-22] MEDS: LOTEPREDNOL ETABONATE OPTH SCH (09:00)
[2023-04-22] MEDS: PANTOPRAZOLE 40MG TABLET PO SCH (09:26)
[2023-04-22] MEDS: LOSARTAN POTASSIUM 50 MG TABLET PO SCH (09:26)
[2023-04-22] MEDS: ACETAMINOPHEN 500 MG TAB PO PRN (09:55)
--- NOTE | 2023-04-22 15:26 | P.PN ---
Subjective Date of Service: 04/22/23 Chief Complaint: dizziness Patient reports large bowel movement today. Blood pressure readings have improved. Patient has no new complain. Physical Examination - Vital Signs Temperature: 97.5 F Blood Pressure: 147/80 Pulse: 74 Respirations: 18 Pulse Ox (%): 99 Assessment And Plan - Plan Physical Exam General: Alert, In no apparent distress, Oriented x3 Neck: Supple, JVD not distended Respiratory: Clear to auscultation bilaterally, Normal air movement Cardiovascular: Normal pulses, Regular rate/rhythm, Normal S1 S2, Systolic murmur Gastrointestinal: Normal bowel sounds, Soft and benign Musculoskeletal: No clubbing, No swelling, No contractures Integumentary: No rashes, No breakdown. Neurological: Normal speech, Normal strength at 5/5 x4 extr. Diagnosis Hypertensive urgency Chronic atrial fibrillation Chronic diastolic heart failure Status post pacemaker Prolonged QT interval Hypothyroidism Hypertension -Blood pressure readings improved -Continue home medications-losartan -Started metoprolol 25 mg twice daily and titrated to 50 mg twice daily. -Monitor blood pressure Afib with pacemaker Dizziness Prolonged QT -QT interval 476/521 -Case discussed with cardiology Dr. Infante -Patient has not been taking sotalol or Cardizem. - Dr Infante input appreciated. -Patient placed on metoprolol and titrated to 50 mg twice daily. Left carotid stenosis -follow up as outpatient Chronic diastolic heart failure -Chest x-ray shows mild pulmonary vascular congestion -Patient is euvolemic and stable on room air. Sphenoid sinusitis -CT head "Right aspect of the sphenoid sinus is completely opacified" -Supportive measures -ENT follow-up patient becomes symptomatic. h/o hypothyroidism -Continue home dose synthroid -TSH 3.450, T4 1.55 Functional constipation Patient had a bowel movement MiraLAX as needed Colace daily Generalized weakness Continue PT. Patient is slated for skilled rehab placement. Family looking at [facility]. DVT ppx: Kaci DNR
[2023-04-22] MEDS ORDERED: POLYETHYL GLY 3350 17 GM/DOSE PO PRN (15:30)
[2023-04-22] MEDS: RIVAROXABAN 20 MG TABLET PO SCH (16:45)
[2023-04-22] MEDS: DOCUSATE NA 100 MG CAP PO SCH ×2 (16:45→22:22)
[2023-04-22] MEDS: BIMATOPROST OPHTH DROPS/2.5 ML BTL OPTH SCH (21:00)
[2023-04-23 03:58] LABS: Potassium 4.3 mEq/L (3.5-5.1)
[2023-04-23] MEDS: METOPROLOL TAR 50 MG TAB PO SCH ×2 (06:36→17:03)
[2023-04-23] MEDS: LEVOTHYROXINE SOD 0.088 MG TAB PO SCH (06:37)
[2023-04-23] MEDS: LOTEPREDNOL ETABONATE OPTH SCH (09:00)
[2023-04-23] MEDS: DOCUSATE NA 100 MG CAP PO SCH ×2 (09:13→20:38)
[2023-04-23] MEDS: PANTOPRAZOLE 40MG TABLET PO SCH (09:13)
[2023-04-23] MEDS: LOSARTAN POTASSIUM 50 MG TABLET PO SCH (09:13)
[2023-04-23] MEDS: ACETAMINOPHEN 500 MG TAB PO PRN (12:02)
--- NOTE | 2023-04-23 13:27 | P.PN ---
Date of Service: 04/23/23 Subjective: doing ok no acute events overnight improving daily BP slightly elevated but improved/more stable denies any swelling, no BURDEN, no orthopnea ROS: 10 point ROS as noted above, otherwise negative Physical Exam: GEN: Alert, oriented, NAD HEENT: Normal conjunctiva, sclera anicteric CV: Regular rate and rhythm, no edema, Systolic murmur Pulm: Nonlabored respirations on room air, clear bilaterally ABD: Soft, nontender, nondistended Neuro: Normal speech, normal affect vitals reviewed Problem List: Hypertensive urgency Chronic atrial fibrillation with pacemaker Chronic diastolic heart failure Dizziness Prolonged QT interval Left carotid stenosis Sphenoid sinusitis Hypothyroidism Functional constipation Generalized weakness Hypertensive urgency Blood pressure improved Continue home medications-losartan continue metorpolol 50 mg BID monitor BP Chronic atrial fibrillation with pacemaker Chronic diastolic heart failure Dizziness Prolonged QT interval CXR noted mild pulmonary vascular congestion QT interval 476/521 Cardiology consulted off sotalol and Cardizem. continue metoprolol Patient is euvolemic and stable on room air Left carotid stenosis carotid u/s (04/18) Moderate plaque formation at the left carotid bulb and mid to distal left ICA; 50-69% stenosis f/u as outpatient Sphenoid sinusitis CT head (04/18): Right aspect of the sphenoid sinus is completely opacified f/u with ENT as outpatient if needed Hypothyroidism Continue home dose synthroid TSH 3.450, T4 1.55 Functional constipation Patient had a bowel movement PRN MiraLAX; Colace BID Generalized weakness ss/cm consulted for SNF; Family looking at [facility] Continue PT. VTE: home xarelto Code: DNR Dispo: SNF - [facility] - pending approval ~1 day
[2023-04-23] MEDS: RIVAROXABAN 20 MG TABLET PO SCH (17:04)
[2023-04-23] MEDS: BIMATOPROST OPHTH DROPS/2.5 ML BTL OPTH SCH (20:38)
[2023-04-24] MEDS: METOPROLOL TAR 50 MG TAB PO SCH (05:16)
[2023-04-24] MEDS: LEVOTHYROXINE SOD 0.088 MG TAB PO SCH (05:16)
[2023-04-24] MEDS: ACETAMINOPHEN 500 MG TAB PO PRN (05:16)
--- NOTE | 2023-04-24 08:45 | P.DS ---
Admission Date: 04/21/23 Discharge Date: 04/24/23 Disposition: TRANSFER TO SNF - REHAB Discharge Condition: FAIR Reason for Admission: dizziness Consultations: Cardiology - Dr. Dalal Brief History of Present Illness: 88yo F, PMH: GERD, atrial fibrillation with pacemaker, hypertension, hypothyroidism who presents to the ED with complaints of high blood pressure associated with dizziness. Kimberly reports her daughter checked her blood pressure this morning finding SBP to be over 200 then took her to the doctor for this condition where her blood pressure was also elevated and she was told to go to the ED for further treatment. She explains that she was walking with her walker yesterday and was getting dizzy leaning towards the left while walking. Her only complaint is dizziness. Vitals BP 194/86, HR 72, respirations 18, temperature 97.4, pulse ox 100% on room air. EKG shows prolonged QT's 475/521, ventricular paced rate. CT head reports no acute intracranial abnormality, right aspect of sphenoid sinus is completely opacified. Bilateral carotid ultrasound reveals "moderate plaque formation at the left carotid bulb and mid to distal left ICA with evidence of 50 to 69% stenosis". Chest x-ray shows "pulmonary vascular congestion, lungs appear clear of acute infiltrate." Hospital Course: Problem List: Hypertensive urgency Chronic atrial fibrillation with pacemaker Chronic diastolic heart failure Dizziness, improved Prolonged QT interval Left carotid stenosis Sphenoid sinusitis Hypothyroidism Functional constipation Generalized weakness Patient presented with dizziness, hypertension. Troponin was negative. EKG with prolonged QT interval (~530). CXR noted mild pulm vascular congestion. Echo: 68% EF, severe diastolic dysfunction, left atrial enlargement, mod TR. Cardiology was consulted. Initially given sotalol, switched to metoprolol d/t prolonged QT interval. Metoprolol was titrated up to 50 mg BID and patient's BP improved/remained stable throughout rest of hospitalization. Patient was feeling better, BP stabilized, and was deemed stable for discharge to [facility]. Patient was euvolemic and stable on room air. Discussed with cardiology - no need for diuretics at this time. Recommend to check weight daily and consider starting low dose diuretic if patient becomes symptomatic. Recommend close follow up with PCP and cardiology in 1 week. Medications: Metoprolol 50mg BID Continue other home medications as previously prescribed Incidentally seen on CT head: Right aspect of the sphenoid sinus is completely opacified. Recommend f/u with ENT if patient becomes symptomatic. Incidentally seen on carotid ultrasound: Moderate plaque formation at the left carotid bulb and mid to distal left ICA; 50-69% stenosis Recommend f/u with cardiology/PCP for further management Follow up: PCP 3-5 days Cardiology in 1 week Physical Exam: GEN: Alert, oriented, NAD HEENT: Normal conjunctiva, sclera anicteric CV: Regular rate and rhythm, no edema, Systolic murmur Pulm: Nonlabored respirations on room air, clear bilaterally ABD: Soft, nontender, nondistended Neuro: Normal speech, normal affect Vital Signs/Physical Exam: Temp Pulse Resp BP Pulse Ox 98.2 F 72 14 136/73 98 04/24/23 04:00 04/24/23 05:16 04/24/23 04:00 04/24/23 05:16 04/24/23 04:00 Laboratory Data at Discharge: WBC 6.40 thou/uL (4.3-10.9) 04/22/23 03:13 Hgb 10.7 g/dL (12.0-15.0) L 04/22/23 03:13 Hct 32.5 % (36.0-45.0) L 04/22/23 03:13 Plt Count 290 thou/uL (152-406) 04/22/23 03:13 PT 16.3 SECONDS (9.5-12.5) H 04/18/23 10:33 INR 1.48 04/18/23 10:33 Sodium 135 mEq/L (136-145) L 04/23/23 03:23 Potassium 4.3 mEq/L (3.5-5.1) 04/23/23 03:23 BUN 22 mg/dL (7-18) H 04/23/23 03:23 Creatinine 0.96 mg/dL (0.55-1.02) 04/23/23 03:23 Glucose 101 mg/dL (74-106) 04/23/23 03:23 Phosphorus 3.3 mg/dL (2.5-4.9) 04/19/23 02:13 Magnesium 2.2 mg/dL (1.6-2.4) 04/19/23 02:13 Total Bilirubin 0.8 mg/dL (0.2-1.0) 04/18/23 10:33 AST 18 U/L (15-37) 04/18/23 10:33 ALT 17 U/L (13-56) 04/18/23 10:33 Alkaline Phosphatase 58 U/L (45-117) 04/18/23 10:33 Lipase 79 U/L (13-75) H 04/18/23 10:33 Home Medications: Pantoprazole [Protonix Tab*] 40 mg PO ACB 04/23/18 Losartan Potassium 100 mg PO DAILY #30 tablet 06/13/18 Levothyroxine [Synthroid*] 112 mcg PO DAILY 04/16/22 Rivaroxaban [Xarelto] 20 mg PO DAILY AT SUPPER 04/16/22 Bimatoprost [Lumigan] 7.5 ml OP BEDTIME #5 ml 04/20/23 Loteprednol Etabonate 5 gm OP DAILY 04/20/23 Metoprolol Tartrate [Lopressor*] 50 mg PO BID #60 tab 04/20/23 New Medications: Metoprolol Tartrate [Lopressor*] 50 mg PO BID #60 tab Bimatoprost [Lumigan] 7.5 ml OP BEDTIME #5 ml Physician Discharge Instructions: Patient presented with dizziness, hypertension. Troponin was negative. EKG with prolonged QT interval (~530). CXR noted mild pulm vascular congestion. Echo: 68% EF, severe diastolic dysfunction, left atrial enlargement, mod TR. Cardiology was consulted. Initially given sotalol, switched to metoprolol d/t prolonged QT interval. Metoprolol was titrated up to 50 mg BID and patient's BP improved/remained stable throughout rest of hospitalization. Patient was feeling better, BP stabilized, and was deemed stable for discharge to [facility]. Patient was euvolemic and stable on room air. Discussed with cardiology - no need for diuretics at this time. Recommend to check weight daily and consider starting low dose diuretic if patient becomes symptomatic. Recommend close follow up with PCP and cardiology in 1 week. Medications: Metoprolol 50mg BID Continue other home medications as previously prescribed Incidentally seen on CT head: Right aspect of the sphenoid sinus is completely opacified. Recommend f/u with ENT if patient becomes symptomatic. Incidentally seen on carotid ultrasound: Moderate plaque formation at the left carotid bulb and mid to distal left ICA; 50-69% stenosis Recommend f/u with cardiology/PCP for further management Follow up: PCP 3-5 days Cardiology in 1 week PROBLEM: Dizziness GOAL: Clear understanding of disease process INSTRUCTIONS: Follow up with PCP in 1-2 weeks. Call to make an appointment. Follow up with cardiology in 1-2 weeks. Call to make an appointment. Return to ER if symptoms worsen. Diet: Heart Healthy Activity: As tolerated COMMUNITY SERVICES Services Needed: Home Health Name of Company: [facility] Date or Referral: IMMUNIZATION Influenza Vaccine Indicated: No Influenza Vaccine Given: Date Given: Pneumonia Vaccine Indicated: No Pneumonia Vaccine Given: Date Given: Follow up with a Health And Safety Coordinator of your choice: ARY DALAL MD [address] [place] [phone] Diet: AHA Activity: Fall precautions Followup: MELISSA TORRES [Primary Care Provider] - Time spent managing pt's care (in minutes): 45
[2023-04-24] MEDS: LOTEPREDNOL ETABONATE OPTH SCH (09:00)
[2023-04-24] MEDS: DOCUSATE NA 100 MG CAP PO SCH (09:19)
[2023-04-24] MEDS: PANTOPRAZOLE 40MG TABLET PO SCH (09:19)
[2023-04-24] MEDS: LOSARTAN POTASSIUM 50 MG TABLET PO SCH (09:20)
[2023-04-25 12:39] VITALS: BP 147/79; TEMP 98.8
[2023-04-25 14:38] VITALS: O2SAT 98
== END 2023-04-24 11:47 | DRG 305 ==
LOC: ER 10:08 → ERHOLD 14:56 → 2ND 17:01 → OBSVTOIN 04-21 09:12
PROVIDERS: ADMIT Internal Medicine; ATTEND Hospitalist
DX: I16.0 Hypertensive urgency (principal); I48.20 Chronic atrial fibrillation, unspecified; I50.32 Chronic diastolic (congestive) heart failure; I11.0 Hypertensive heart disease with heart failure; E03.9 Hypothyroidism, unspecified; K59.04 Chronic idiopathic constipation; J32.3 Chronic sphenoidal sinusitis; I65.22 Occlusion and stenosis of left carotid artery; K21.9 Gastro-esophageal reflux disease without esophagitis; R94.31 Abnormal electrocardiogram [ECG] [EKG]; Z95.0 Presence of cardiac pacemaker; Z88.0 Allergy status to penicillin; Z88.8 Allergy status to other drugs, medicaments and biological substances; Z79.01 Long term (current) use of anticoagulants; Z79.890 Hormone replacement therapy; Z79.899 Other long term (current) drug therapy; Z90.710 Acquired absence of both cervix and uterus
CPT/HCPCS: 36415; 70450; 71045; 74018; 80048; 80076; 81003; 83690; 83735; 83880; 84100; 84132; 84439; 84443; 84484; 85025; 85610; 93005; 93306; 93880; 96374; 97110; 97116; 97161; 97530; 99285; G0378; J0360; J1650; J1940; J7030